=== PATIENT | female | born 1930 | race Caucasian/White ===

== ENCOUNTER → 2016-05-27 | Outpatient (CLI) | payer MEDICARE ==
[~2016-05-27] MED LIST: AMLO2.5T PO; AMLO5TAB2; AMLO5TAB4 PO; ASPI-875 PO; BISO1TAB8 PO; BISO5TAB24 PO; CLN.2T PO; CPR500T PO; GUAI5LIQ3 PO; HYDR-3812 PO; OXYB5TAB9 PO; PANT40TA2 PO; PRAV40TA PO; PRCD5U PO; PRV20T PO
--- OUTSIDE RECORDS SUMMARY | 2016-05-27 12:42 | XMS REPORT | Continuity of Care Document ---
Author Author [facility] Organization [facility] Address Unknown Phone Unavailable Care Team Providers Care Card Seller Name Role Phone PCP Unavailable Source Comments Some departments are not documenting in the electronic medical record. If you do not see the information that you expected, contact Release of Information in the Health Information Management department at [phone] for further assistance in locating additional records.[facility] Active Allergies and Adverse Reactions Not on File Current Medications Not on file Active Problems Not on file Social History Tobacco Use Types Packs/Day Years Used Date Never Assessed Plan of Care Health Maintenance Due Date Last Done Comments Physical (Comprehensive) 1937 Exam Pertussis Vaccine 1941 Tetanus Vaccine 1947 Breast Cancer Screening 1970 Shingles Vaccine 1990 Osteoporosis Screening 1995 Prevnar/Pneumovax (#1) 1995 Influenza Vaccine 01/09/2015 Results from Last 3 Months Not on file
--- NOTE | 2016-05-27 13:02 | Diagnostic Imaging Report ---
Indication: Dyspnea and cough for one week. Discussion: Two views of the chest were obtained, comparison 10/11/2013. Underlying COPD is stable. Borderline cardiomegaly is stable. No evidence of pneumonia, heart failure, pleural fluid, or pneumothorax. No acute osseous abnormality. Impression: 1. Borderline cardiomegaly without failure. Dictated by: Dictated on workstation # [id number]
== END ==
LOC: RAD 12:38
PROVIDERS: ATTEND Nurse Practitioner Family
DX: I51.7 Cardiomegaly (principal); R06.09 Other forms of dyspnea
CPT/HCPCS: 71020

== ENCOUNTER 2016-07-10 05:50 | Outpatient (CLI) | payer MEDICARE ==
[~2016-07-10] VITALS: Ht 165.1 cm; Wt 68.3 kg
[~2016-07-10 05:50] MED LIST changes: -AMLO5TAB4 PO; -PANT40TA2 PO
--- OUTSIDE RECORDS SUMMARY | 2016-07-10 05:52 | XMS REPORT | Continuity of Care Document ---
Author Author [facility] Organization [facility] Address Unknown Phone Unavailable Care Team Providers Care Process Coordinator Name Role Phone PCP Unavailable Source Comments Some departments are not documenting in the electronic medical record. If you do not see the information that you expected, contact Release of Information in the Health Information Management department at [phone] for further assistance in locating additional records.[facility] Active Allergies and Adverse Reactions [...]
[2016-07-10] MEDS ORDERED: AMLO5TAB4 PO (15:54)
== END 2016-07-10 15:58 ==
LOC: PREOP 05:50
PROVIDERS: ATTEND Surgery Pediatric Surgery
DX: Z01.818 Encounter for other preprocedural examination (principal); K62.5 Hemorrhage of anus and rectum; K21.9 Gastro-esophageal reflux disease without esophagitis

== ENCOUNTER 2016-07-16 10:26 | Day surgery (SDC) | payer MEDICARE ==
[~2016-07-16 10:26] MED LIST changes: +AMLO5TAB4 PO
--- OUTSIDE RECORDS SUMMARY | 2016-07-16 10:29 | XMS REPORT | Continuity of Care Document ---
Author Author [facility] Organization [facility] Address Unknown Phone Unavailable Care Team Providers Care Certification Officer Name Role Phone PCP Unavailable Source Comments Some departments are not documenting in the electronic medical record. If you do not see the information that you expected, contact Release of Information in the Health Information Management department at [phone] for further assistance in locating additional records.[facility] Active Allergies and Adverse Reactions Not [...]
--- OUTSIDE RECORDS SUMMARY | 2016-07-16 10:29 | XMS REPORT | Continuity of Care Document ---
Author Author [facility] Organization [facility] Address Unknown Phone Unavailable Care Team Providers Care Water Pump Servicer Name Role Phone PCP Unavailable Source Comments Some departments are not documenting in the electronic medical record. If you do not see the information that you expected, contact Release of Information in the Health Information Management department at [phone] for further assistance in locating additional records.[facility] Active Allergies and Adverse Reactions Not [...]
[2016-07-16 10:45] VITALS: BP 149/83
[2016-07-16] MEDS ORDERED: NALOXONE 0.4 MG/ML 1 ML (NARCAN) VIAL IVP PRN (10:45)
[2016-07-16] MEDS ORDERED: HURRICAINE EXT TUBE (BENZOCAINE) XX PRN (10:45)
[2016-07-16] MEDS ORDERED: NS IV 500 ML 500 ML IV ONE (10:45)
[2016-07-16] MEDS ORDERED: FLUMAZENIL (ROMAZICON) 0.1 MG/ML 5 ML VIAL INJ PRN (10:45)
[2016-07-16] MEDS ORDERED: NS IV 500 ML 500 ML ONE (10:53)
[2016-07-16] MEDS ORDERED: fentaNYL INJECTION 100 MCG/2 ML AMP ONE ×2 (11:45→11:46)
[2016-07-16] MEDS ORDERED: LIDOCAINE JELLY 2% (XYLOCAINE) 5 ML TUBE ONE (11:45)
[2016-07-16] MEDS ORDERED: MIDAZOLAM 2 MG/2 ML (VERSED) VIAL ONE ×3 (11:46)
[2016-07-16] MEDS ORDERED: HURRICAINE EXT TUBE (BENZOCAINE) ONE (11:46)
[2016-07-16] MEDS: fentaNYL INJECTION 100 MCG/2 ML AMP IVP PRN ×4 (11:55→12:27)
[2016-07-16] MEDS: MIDAZOLAM 2 MG/2 ML (VERSED) VIAL IVP PRN ×3 (11:58→12:25)
[2016-07-16 13:10] VITALS: BP 139/69
--- NOTE | 2016-07-16 13:11 | Progress Note-Pre Operative ---
Pre-Operative Progress Note H&P Reviewed The H&P was reviewed, patient examined and no changes noted. Date H&P Reviewed: Jul 16, 2016 Time H&P Reviewed: 11:00 Pre-Operative Diagnosis: rectal bleed, GERD YESI ROWELL MD Jul 16, 2016 1:11 pm
--- NOTE | 2016-07-16 13:11 | Conscious Sedation/ASA ---
Conscious Sedation Pre-Proced Time Reviewed: 11:00 ASA Class: 2 Airway Mallampati Classification: ([place] appropriate class) I. II. III, IV Lungs Heart ASA score ASA 1: a normal healthy patient ASA 2: a patient with a mild systemic disease (mid diabetes, controlled hypertension, obesity ASA 3: a patient with a severe systemic disease that limits activity (angina , COPD, prior Myocardial infarction) ASA 4: a patient with an incapacitating disease that is a constant threat to life (CHF, renal failure) ASA 5: a moribund patient not expected to survive 24 hrs. (ruptured aneurysm) ASA 6: a declared brain patient whose organs are being harvested. For emergent operations, add the letter E after the classification Grade 2 Sedation Plan: Analgesia, Amnesia, Plan communicated to team members, Discussed options with patient/fam, Discussed risks with patient/fam Note The patient is an appropriate candidate to undergo the planned procedure, sedation, and anesthesia. The patient immediately re-assessed prior to indication. YESI ROWELL MD Jul 16, 2016 1:11 pm
--- NOTE | 2016-07-16 13:14 | Progress Note-Post Operative ---
Post-Operative Progess Note Pre-Operative Diagnosis rectal bleed, GERD Post-Operative Diagnosis reflux esophagitis(class B), small HH(2cm), moderate gastritis. chronic stage 2-3 ext and int hemorrhoids, moderate-severe sigmoid diverticulosis. Post-Op Procedure Note Date of Procedure: Jul 16, 2016 Name of Procedure: EGD with bx. Colonoscopy. Anesthesia Type CS Estimated blood loss (mL): minimal Specimen(s) collected GE jxn, antrum YESI ROWELL MD Jul 16, 2016 1:14 pm
[2016-07-16] MEDS ORDERED: PANT40TA2 PO (13:15)
[2016-07-16] MEDS ORDERED: ONDANSETRON 4 MG/2 ML (SDV) Z0FRAN IV PRN (13:15)
[2016-07-16] MEDS ORDERED: ACETAMINOPHEN 325 MG TABLET/CAPLET (TYLENOL) PO PRN (13:15)
[2016-07-16] MEDS ORDERED: morphine INJ 10 MG/ML 1ML (SYR OR VIAL) IV PRN (13:15)
[2016-07-16] MEDS ORDERED: HYDROcodone/APAP 5 MG/325 MG (LORTAB) TAB PO PRN (13:15)
--- NOTE | 2016-07-16 13:16 | Discharge Inst-Surgical ---
D/C Lap Instructions-KIDO New, Converted, or Re-Newed RX: RX on Chart Follow Up PRN Activity as tolerated High Fiber Diet 25g or more per day Avoid Alcohol, Caffeine, Spicy [place] and Acid foods. Drink 64 fluid oz or more of fluids per day. Symptoms to Report: Fever over 101 degree F, Nausea/Vomiting If any problems/questions: Contact your physician or go to Emergency Room YESI ROWELL MD Jul 16, 2016 1:16 pm
[2016-07-16 13:40] VITALS: BP 138/67
[2016-07-16 14:05] VITALS: BP 138/67
--- NOTE | 2016-07-17 10:01 | OPERATIVE REPORT ---
PROCEDURE PHYSICIAN: YESI HERNÁNDEZ DATE OF PROCEDURE: 07/16/2016 ATTENDING PRIMARY CARE PHYSICIAN: Dr. Rosario. PREOPERATIVE DIAGNOSES: 1. Gastroesophageal reflux disease. 2. Abdominal pain. 3. Rectal bleeding. POSTOPERATIVE DIAGNOSES: 1. Reflux esophagitis, class B. 2. Small hiatal hernia 2 cm in size. 3. Moderate severity gastritis. 4. Chronic, stage II external and internal hemorrhoids. 5. Moderate to severe sigmoid diverticulosis. PROCEDURES: 1. EGD with biopsy. 2. Colonoscopy. SURGEON: Dr. Hernández. ANESTHESIA: Conscious sedation. ESTIMATED BLOOD LOSS: Minimal. FINDINGS: EGD: 1. Reflux esophagitis, class B. 2. Small hiatal hernia 2 cm in size. 3. Moderate severity gastritis. 4. Pylorus and duodenum appeared normal. COLONOSCOPY: 1. Chronic, stage II external and internal hemorrhoids, not actively edematous or inflamed and no bleeding. 2. There was a moderate to severe diverticulosis. 3. There was no mucosal inflammatory changes to indicate any active diverticulitis. 4. The remainder of the colon was normal. There were no signs of colitis or any active bleeding sources. DISPOSITION: The patient tolerated procedure well. BRIEF HISTORY: Ms. Odalys Almanza is an 86-year-old female with symptoms of rectal bleeding, as well as increased reflux and regurgitation. She reports in the past 2 months, she has been having episodes of red blood per rectum. She also reports that she has had pain in the right lower abdominal quadrant, crampy in nature. She does not report any fever or chills as well as no diarrhea, nor constipation. She also reports that she has had reflux and heartburn, however, this worsened in the past several months. She does not report any uriah episodes of nausea nor vomiting, as well as no hematemesis. PROCEDURE: EGD: The patient was brought to the endoscopy suite, laid in left lateral decubitus position. After adequate IV pain and sedative medications and conscious sedation anesthesia, the mouthpiece was applied. The endoscope mouth, visualizing the pharynx and hypopharyngeal region. Vocal cords, epiglottis and vallecula identified and appeared to be normal. The endoscope was then gently intubated into the esophageal opening and the esophagus insufflated. The endoscope was then advanced through the first, second, and 3rd portions esophagus at the level of the GE junction, a reflux esophagitis, class B identified. There were no ulcers or strictures identified in this region. Biopsy was taken with forceps with visualization of good hemostasis. The endoscope was then easily advanced into stomach and endoscope retroflexed visualizing a small hiatal hernia, approximately 2 cm in size. There was a moderate severity gastritis towards the stomach antrum. There were no active bleeding sources identified. A biopsy was taken with forceps with visualization of good hemostasis. The endoscope was advanced through the pylorus and first and second portions of duodenum which appeared normal. The endoscope was then slowly withdrawn while taking a second look and suctioning of residual air with no additional findings. The patient tolerated this portion the procedure well. For her reflux esophagitis, hiatal hernia, as well as gastritis, we will recommend the necessary lifestyle and diet accommodation including smaller, more frequent meals, avoidance of eating at night, as well as head elevation while laying supine. She also needs to avoid caffeinated beverages, spicy, greasy and acidic foods. We will also start her on Protonix 40 mg daily. COLONOSCOPY: Under the same conscious anesthesia, we then proceeded with the colonoscopy portion the procedure. A digital rectal examination revealed chronic, stage II external and internal hemorrhoids which were not actively edematous or inflamed and no bleeding. Normal sphincter tone was felt and there were no palpable masses. The endoscope was then intubated into the anus and the rectum gently insufflated. The endoscope was then advanced through the valves of [place]su the rectum with no polyps or any neoplasms identified, as well as no signs of proctitis. We then proceeded to the sigmoid colon where a moderate to severe sigmoid diverticulosis identified. There is no active mucosal inflammatory changes to indicate any active diverticulitis as well as no active bleeding. The endoscope was then advanced through the remainder of the descending, transverse, and ascending colon of the cecum. These segments were normal. There were no polyps or any neoplasms identified throughout the colon or rectum as well as no inflammatory changes, nor any active bleeding sources. The endoscope was then slowly withdrawn while taking a second look and suctioning residual air with no additional findings. The patient tolerated procedure well. We will recommend a high fiber diet with least 25 to 30 grams of fiber per day as well as at least 64 fluid ounces of water daily to promote soft stools on a daily basis. We feel that the bleeding as well as likely due to the internal hemorrhoidal source versus diverticular bleed. Job ID: [id number] Dictated Date: 07/16/2016 12:58:26 Crystal Report Developer Date: 07/17/2016 09:50:24 / salvatore
== END 2016-07-16 14:05 | disposition home or self-care (01) ==
LOC: ENDO 10:26
PROVIDERS: ATTEND Surgery Pediatric Surgery
DX: K21.0 Gastro-esophageal reflux disease with esophagitis (principal); K57.90 Diverticulosis of intestine, part unspecified, without perforation or abscess without bleeding; K44.9 Diaphragmatic hernia without obstruction or gangrene; K29.70 Gastritis, unspecified, without bleeding; K64.8 Other hemorrhoids
CPT/HCPCS: 88305

== ENCOUNTER 2016-11-05 09:14 | Emergency (ER) | payer MEDICARE ==
[~2016-11-05] VITALS: Ht 165.1 cm; Wt 68.0 kg
[~2016-11-05 09:14] MED LIST changes: +PANT40TA2 PO
--- OUTSIDE RECORDS SUMMARY | 2016-11-05 09:21 | XMS REPORT | Continuity of Care Document ---
Author Author [facility] Address Unknown Phone Unavailable Allergies Active Description Code Type Severity Reaction Onset Reported/Identified Relationship to Patient Clinical Status Yes No Known Drug Allergies [id number] Drug Allergy Unknown N/ A 07/16/2016 Medications Problems Date Dx Coded Attending Type Code Diagnosis Diagnosed By 07/25/2011 Ot 599.0 URIN TRACT INFECTION NOS 07/25/2011 Ot 780.60 FEVER, UNSPECIFIED 12/22/2011 Ot 272.4 HYPERLIPIDEMIA NEC/NOS 12/22/2011 Ot 401.9 HYPERTENSION NOS 12/22/2011 Ot 428.0 CONGESTIVE HEART FAILURE NOS 12/22/2011 Ot 428.31 ACUTE DIASTOLIC HRT FAILURE 12/22/2011 Ot 494.1 BRONCHIECTASIS W/ACUTE EXACERBATION 12/22/2011 Ot 577.0 ACUTE PANCREATITIS 02/25/2013 SAIMA MOODY MD Ot 298.9 PSYCHOSIS NOS 02/25/2013 SAIMA MOODY MD Ot 389.9 HEARING LOSS NOS 02/25/2013 SAIMA MOODY MD Ot 401.9 HYPERTENSION NOS 02/25/2013 SAIMA MOODY MD Ot 427.69 PREMATURE BEATS NEC 02/25/2013 SAIMA MOODY MD Ot 427.89 CARDIAC DYSRHYTHMIAS NEC 02/25/2013 SAIMA MOODY MD Ot 780.2 SYNCOPE AND COLLAPSE 02/25/2013 SAIMA MOODY MD Ot 780.4 DIZZINESS AND GIDDINESS 02/25/2013 SAIMA MOODY MD Ot 780.79 OTH MALAISE FATIGUE 02/25/2013 SAIMA MOODY MD Ot 780.8 GENERALIZED HYPERHIDROSIS 02/25/2013 SAIMA MOODY MD Ot 781.2 ABNORMALITY OF GAIT 02/25/2013 SAIMA MOODY MD Ot 782.62 FLUSHING 02/25/2013 SAIMA MOODY MD Ot 784.51 DYSARTHRIA 02/25/2013 SAIMA MOODY MD Ot 786.50 CHEST PAIN NOS 02/25/2013 SAIMA MOODY MD Ot 787.01 NAUSEA WITH VOMITING 02/25/2013 SAIMA MOODY MD Ot V17.49 FAMILY HISTORY OF OTHER CARDIOVASCULAR D 03/21/2013 SAIMA MOODY MD Ot 786.50 CHEST PAIN NOS 04/24/2013 SAIMA MOODY MD Ot 780.2 SYNCOPE AND COLLAPSE 09/29/2014 SAIMA MOODY MD Ot V76.12 11/06/2015 YADIRA JARRETT, HERMILA Watson Ot M66.0 RUPTURE OF POPLITEAL CYST 11/07/2015 YADIRA JARRETT, HERMILA Watson Ot M66.0 RUPTURE OF POPLITEAL CYST 12/17/2015 OBED DO, JORDAN F Ot M25.562 PAIN IN LEFT KNEE 12/20/2015 OBED DO, JORDAN F Ot M25.562 PAIN IN LEFT KNEE 01/04/2016 OBED DO, JORDAN F Ot M25.562 PAIN IN LEFT KNEE 01/10/2016 OBED DO, JORDAN F Ot M25.562 PAIN IN LEFT KNEE 05/27/2016 Ot V76.12 OTH SCREEN MAMMO-MALIGN NEOPLASM OF DIEGO 05/27/2016 SAIMA MOODY MD Ot 786.2 COUGH 05/27/2016 SAIMA MOODY MD Ot 786.9 RESP SYS/CHEST SYMP NEC 05/27/2016 SAIMA MOODY MD Ot 786.50 CHEST PAIN NOS 05/27/2016 CARLITA LUI MD Ot 397.0 TRICUSPID VALVE DISEASE 05/27/2016 CARLITA LUI MD Ot 401.0 MALIGNANT HYPERTENSION 05/27/2016 CARLITA LUI MD Ot 424.0 MITRAL VALVE DISORDER 05/27/2016 CARLITA LUI MD Ot 427.89 CARDIAC DYSRHYTHMIAS NEC 05/27/2016 CARLITA LUI MD Ot 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 05/27/2016 CARLITA LUI MD Ot 780.2 SYNCOPE AND COLLAPSE 05/27/2016 Ot 786.50 CHEST PAIN NOS 05/27/2016 SAIMA MOODY MD Ot V76.12 OTH SCREEN MAMMO-MALIGN NEOPLASM OF [place] 05/27/2016 Ot 780.2 SYNCOPE AND COLLAPSE 05/27/2016 SAIMA MOODY MD Ot 496 CHR AIRWAY OBSTRUCT NEC 05/27/2016 SAIMA MOODY MD Ot 786.2 COUGH 05/27/2016 SAIMA MOODY MD Ot V76.12 OTH SCREEN MAMMO-MALIGN NEOPLASM OF [place] 05/27/2016 JORDAN CLAY DO Ot M25.562 PAIN IN LEFT KNEE 05/28/2016 JUAN MANUEL BANDA ORNAMENTAL IRONWORKER Ot I51.7 CARDIOMEGALY 05/28/2016 JUAN MANUEL BANDA ORNAMENTAL IRONWORKER Ot R06.09 OTHER FORMS OF DYSPNEA 06/13/2016 JUAN MANUEL BANDA ORNAMENTAL IRONWORKER Ot I51.7 CARDIOMEGALY 06/13/2016 JUAN MANUEL BANDA ORNAMENTAL IRONWORKER Ot R06.09 OTHER FORMS OF DYSPNEA 06/25/2016 JUAN MANUEL BANDA ORNAMENTAL IRONWORKER Ot I51.7 CARDIOMEGALY 06/25/2016 JUAN MANUEL BANDA ORNAMENTAL IRONWORKER Ot R06.09 OTHER FORMS OF DYSPNEA 07/10/2016 Ot 786.50 CHEST PAIN NOS 07/10/2016 Ot 780.2 SYNCOPE AND COLLAPSE 07/11/2016 YESI ROWELL MD Ot K21.9 GASTRO-ESOPHAGEAL REFLUX DISEASE WITHOUT 07/11/2016 YESI ROWELL MD Ot K62.5 HEMORRHAGE OF ANUS AND RECTUM 07/11/2016 YESI ROWELL MD Ot Z01.818 ENCOUNTER FOR OTHER PREPROCEDURAL EXAMIN 07/16/2016 YESI ROWELL MD Ot K21.9 GASTRO-ESOPHAGEAL REFLUX DISEASE WITHOUT 07/16/2016 YESI ROWELL MD Ot K62.5 HEMORRHAGE OF ANUS AND RECTUM 07/16/2016 YESI ROWELL MD Ot Z01.818 ENCOUNTER FOR OTHER PREPROCEDURAL EXAMIN 07/16/2016 Ot 786.50 CHEST PAIN NOS 07/16/2016 Ot 780.2 SYNCOPE AND COLLAPSE 07/16/2016 YESI ROWELL MD Ot K21.0 GASTRO-ESOPHAGEAL REFLUX DISEASE WITH ES 07/16/2016 YESI ROWELL MD Ot K29.70 GASTRITIS, UNSPECIFIED, WITHOUT BLEEDING 07/16/2016 YESI ROWELL MD Ot K44.9 DIAPHRAGMATIC HERNIA WITHOUT OBSTRUCTION 07/16/2016 YESI ROWELL MD Ot K57.90 DVRTCLOS OF INTEST, PART UNSP, W/O PERF 07/16/2016 SORIN JARRETT, YESI Ot K64.8 OTHER HEMORRHOIDS Procedures Results Encounters ACCT No. Visit Date/Time Discharge Status Pt. Type Provider Facility Loc./Unit Complaint [id number] 05/06/2012 09:57:00 05/06/2012 23: 59:59 CLS Outpatient [facility], [facility]
[2016-11-05 09:59] LABS: BILIRUBIN,URINE NEGATIVE (NEGATIVE); KETONES,URINE NEGATIVE (NEGATIVE); LEUKOCYTE ESTERASE ,URINE 3+ (NEGATIVE); NITRITE,URINE POSITIVE (NEGATIVE); PH,URINE 8 (5-9); PROTEIN,URINE 3+ (NEGATIVE); UROBILINOGEN,URINE 1 MG/DL (NORMAL)
[2016-11-05] MEDS ORDERED: NS IV 500 ML 500 ML IV ONE (10:00)
[2016-11-05] MEDS ORDERED: ACETAMINOPHEN 500 MG TAB (TYLENOL) PO PRN (10:00)
--- NOTE | 2016-11-05 10:08 | ED General ---
General Chief Complaint: -Female Stated Complaint: POSSIBLE UTI//SHOULDER PAIN Nursing Triage Note: PT CO OF UTI SX, PAIN, BURNING, FREQUENCY AND LOW BACK PAIN. PT CO OF R SHOULDER PAIN DENINES INJURY Nursing Sepsis Screen: No Definite Risk Source of Information: Patient Exam Limitations: No Limitations History of Present Illness Time Seen by Provider: 09:55 Initial Comments Here with report of urinary frequency over the last 2 nights as well as fever and chills. States that she has decreased appetite and is overall not feeling well. Complains of body aches and specifically pain to the right shoulder joint. Denies any injury. Timing/Duration: 2-3 Days Severity: Moderate Associated Systoms: No Chest Pain, No Cough, Fever/Chills, Loss of Appetite, No Nausea/Vomiting, No Rash, No Shortness of Air, Weakness Allergies and Home Medications Allergies Coded Allergies: No Known Drug Allergies (Verified , 07/16/16) Home Medications Amlodipine Besylate 5 Mg Tablet, 5 MG PO DAILY, (Reported) Aspirin 81 Mg Tablet.dr, 81 MG PO DAILY, (Reported) Pantoprazole Sodium 40 Mg Tablet.dr, 40 MG PO DAILY, #90 Prescribed by: YESI ROWELL on 07/16/16 1315 Constitutional: see HPI EENTM: no symptoms reported, No nose congestion, No throat pain Respiratory: No cough, No short of breath Cardiovascular: No chest pain, No edema, No palpitations Gastrointestinal: see HPI, No abdominal pain, loss of appetite, No nausea, No vomiting Genitourinary: no symptoms reported Musculoskeletal: back pain, muscle pain All Other Systems Reviewed Negative Unless Noted: Yes Past Rjtsxhb-Tjopbm-Jfwily Hx Patient Social History Alcohol Use: Denies Use Recreational Drug Use: No Smoking Status: Never a Smoker Recent Foreign Travel: No Contact w/Someone Who Travel: No Recent Infectious Disease Expo: No Recent Hopitalizations: No Immunizations Up To Date Tetanus Booster (TDap): Unknown Date of Pneumonia Vaccine: Feb 08, 2011 Date of Influenza Vaccine: Feb 16, 2017 Seasonal Allergies Seasonal Allergies: No Surgeries HX Surgeries: Yes (CYST REMOVED FROM KNEE, CATARACTS) Surgeries: Gallbladder, Hysterectomy Respiratory Hx Respiratory Disorders: No Cardiovascular Hx Cardiac Disorders: Yes Cardiac Disorders: Hypertension Neurological Hx Neurological Disorders: No Reproductive System Hx Reproductive Disorders: No Sexually Transmitted Disease: No HIV/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 Genitourinary Hx Genitourinary Disorders: No Gastrointestinal Hx Gastrointestinal Disorders: No (RECTAL BLEEDING) Gastrointestinal Disorders: Gastroesophageal Reflux, Diverticulosis, Polyps Musculoskeletal Hx Musculoskeletal Disorders: No Endocrine Hx Endocrine Disorders: No HEENT HX ENT Disorders: Yes (WEARS GLASSES, HEARING AIDES) Loss of Vision: Bilateral Hearing Impairment: Hard of Hearing Cancer Hx Cancer: No Psychosocial Hx Psychiatric Problems: No Integumentary HX Skin/Integumentary Disorder: No Blood Transfusions Hx Blood Disorders: No Adverse Reaction to a Blood Tr: No (N/A) Reviewed Nursing Assessment Reviewed/Agree w Nursing PMH: Yes Family Medical History Significant Family History: No Pertinent Family Hx Physical Exam-Suspected Sepsis Physical Exam Vital Signs Vital Sign - Last 12Hours 11/05/16 09:34 Temp 97.3 Pulse 94 Resp 18 B/P (MAP) 134/69 Pulse Ox 94 Capillary Refill : Less Than 3 Seconds Blood Pressure Mean: 90 General Appearance: No Apparent Distress, WD/WN HEENT: PERRL/EOMI, Pharynx Normal Neck: Non Tender, Supple Respiratory: Lungs Clear, Normal Breath Sounds Cardiovascular: Regular Rate, Rhythm, No Murmur Gastrointestinal: Non Tender, Soft Back: Normal Inspection, No CVA Tenderness, No Vertebral Tenderness, Other ( low back pain and bilateral paraspinous. Mild pain within the shoulder joint retains range of motion.) Neurologic/Psychiatric: Alert, Oriented x3 Skin: normal color, warm/dry Focused Exam Lactic Acid Level Laboratory Tests Test 11/05/16 10:00 Lactic Acid Level 0.76 MMOL/L (0.50-2.00) Progress/Results/Core Measures Suspected Sepsis Recent Fever Within 48 Hours: No Infection Criteria Present: None New/Unexplained Altered Menta: No Sepsis Screen: No Definite Risk Sepsis Diagnosis: SIRS Temperature:97.3 Pulse: 94 Respiratory Rate: 18 Laboratory Tests 11/05/16 10:00: White Blood Count 13.3H Blood Pressure 134 /69 Mean: 90 Laboratory Tests 11/05/16 10:00: Creatinine 0.81, INR Comment 1.1, Platelet Count 200, Total Bilirubin 0.9 Results/Orders Lab Results Laboratory Tests Test 11/05/16 09:25 11/05/16 10:00 Range/Units Urine Color YELLOW Urine Clarity VERY CLOUDY H Urine pH 8 5-9 Urine Specific [place] 1.015 L 1.016-1.022 Urine Protein 3+ H NEGATIVE Urine Glucose (UA) NEGATIVE NEGATIVE Urine Ketones NEGATIVE NEGATIVE Urine Nitrite POSITIVE H NEGATIVE Urine Bilirubin NEGATIVE NEGATIVE Urine Urobilinogen 1 NORMAL MG/DL Urine Leukocyte Esterase 3+ H NEGATIVE Urine RBC (Auto) 4+ H NEGATIVE Urine RBC 10-25 H /HPF Urine WBC >100 H /HPF Urine Squamous Epithelial Cells 10-25 H /HPF Urine Crystals NONE /LPF Urine Bacteria LARGE H /HPF Urine Casts NONE /LPF Urine Mucus NEGATIVE /LPF Urine Culture Indicated YES White Blood Count 13.3 H 4.3-11.0 10^3/uL Red Blood Count 4.59 4.35-5.85 10^6/uL Hemoglobin 13.2 11.5-16.0 G/DL Hematocrit 40 35-52 % Mean Corpuscular Volume 87 80-99 FL Mean Corpuscular Hemoglobin 29 25-34 PG Mean Corpuscular Hemoglobin Concent 33 32-36 G/DL Red Cell Distribution Width 14.4 10.0-14.5 % Platelet Count 200 130-400 10^3/uL Mean Platelet Volume 9.3 7.4-10.4 FL Neutrophils (%) (Auto) 74 42-75 % Lymphocytes (%) (Auto) 11 L 12-44 % Monocytes (%) (Auto) 14 H 0-12 % Eosinophils (%) (Auto) 1 0-10 % Basophils (%) (Auto) 0 0-10 % Neutrophils # (Auto) 9.9 H 1.8-7.8 X 10^3 Lymphocytes # (Auto) 1.4 1.0-4.0 X 10^3 Monocytes # (Auto) 1.8 H 0.0-1.0 X 10^3 Eosinophils # (Auto) 0.1 0.0-0.3 10^3/uL Basophils # (Auto) 0.1 0.0-0.1 10^3/uL Prothrombin Time 13.4 12.2-14.7 SEC INR Comment 1.1 0.8-1.4 Activated Partial Thromboplast Time 31 24-35 SEC Sodium Level 139 135-145 MMOL/L Potassium Level 3.9 3.6-5.0 MMOL/L Chloride Level 105 98-107 MMOL/L Carbon Dioxide Level 26 21-32 MMOL/L Anion Gap 8 5-14 MMOL/L Blood Urea Nitrogen 14 7-18 MG/DL Creatinine 0.81 0.60-1.30 MG/DL Estimat Glomerular Filtration Rate > 60 BUN/Creatinine Ratio 17 Glucose Level 123 H 70-105 MG/DL Lactic Acid Level 0.76 0.50-2.00 MMOL/L Calcium Level 9.2 8.5-10.1 MG/DL Total Bilirubin 0.9 0.1-1.0 MG/DL Aspartate Amino Transf (AST/SGOT) 21 5-34 U/L Alanine Aminotransferase (ALT/SGPT) 23 0-55 U/L Alkaline Phosphatase 69 40-136 U/L Total Protein 7.2 6.4-8.2 GM/DL Albumin 3.9 3.2-4.5 GM/DL My Orders Orders - BIANCA QUAHC MD Ua Culture If Indicated (11/05/16 09:40) Cbc With Automated Diff (11/05/16 10:00) Comprehensive Metabolic Panel (11/05/16 10:00) Lactic Acid Analyzer (11/05/16 10:00) Blood Culture (11/05/16 10:00) Sputum Culture (11/05/16 10:00) Protime With Inr (11/05/16 10:00) Partial Thromboplastin Time (11/05/16 10:00) Chest 1 View, Ap/Pa Only (11/05/16 10:00) O2 (11/05/16 10:00) Acetaminophen Tablet (Tylenol Tablet) (11/05/16 10:00) Saline Lock/Iv-Start (11/05/16 10:00) Vital Signs Adult Sepsis Patie Q1HR (11/05/16 10:00) Remove Rings In Anticipation O (11/05/16 10:00) Ns Iv 500 Ml (Sodium Chloride 0.9%) (11/05/16 10:00) Urine Culture (11/05/16 09:25) Rocephin 1g Iv (11/05/16 11:30) Medications Given in ED Current Medications Medications Dose Ordered Sig/Ronnie Route Start Time Stop Time Status Last Admin Dose Admin Acetaminophen 1,000 mg ONCE PRN PO 11/05/16 10:00 11/05/16 10:15 DC 11/05/16 10:14 1,000 MG Sodium Chloride 500 ml @ 0 mls/hr Q0M ONCE IV 11/05/16 10:00 11/05/16 10:02 DC 11/05/16 10:14 500 MLS/HR Vital Signs/I&O Vital Sign - Last 12Hours 11/05/16 09:34 Temp 97.3 Pulse 94 Resp 18 B/P (MAP) 134/69 Pulse Ox 94 Capillary Refill : Less Than 3 Seconds Blood Pressure Mean: 90 Progress Note : Progress Note Seen and evaluated. UA ordered. IV, labs and blood culture ordered after patient became febrile in the ER. Lactic acid ordered with blood culture. Normal saline 500 mL bolus. Tylenol 1 g by mouth ordered. Monitor patient. 1120: UTI noted. Mild elevation in white count but overall I think this can be treated as outpatient. We will give 1 g Rocephin IV here due to complexity of symptoms and concerns related to age. Patient and family agree and her appreciative. She does feel better after fluids and Tylenol. Discharged home with return precautions. Patient verbalize understanding instructions and agreement with plan. Departure Impression Impression: Primary Impression: Urinary tract infection Qualified Codes: N30.00 - Acute cystitis without hematuria Disposition: HOME, SELF-CARE Condition: Stable Departure-Patient Inst. Decision time for Depature: 11:26 Referrals: ALISON FERRELL MD (PCP/Family) Primary Care Physician Patient Instructions: Urinary Tract Infection, Adult (DC) Add. Discharge Instructions: All discharge instructions reviewed with patient and/or family. Voiced understanding. Take medications as directed. Drink plenty of fluids. Follow-up with your DrSusan in a few days for recheck. Return for worse pain, fever, vomiting, weakness, breathing problems or other concerns as needed. Scripts Cephalexin (Cephalexin) 500 Mg Tablet 500 MG PO BID, #14 TAB 0 Refills Prov: BIANCA QUACH MD 11/05/16 BIANCA QUACH MD Nov 05, 2016 10:08
[2016-11-05 10:14] LABS: BASOPHILS # (AUTO) 0.1 10^3/uL (0.0-0.1); BASOPHILS % (AUTO) 0 % (0-10); EOSINOPHILS # (AUTO) 0.1 10^3/uL (0.0-0.3); EOSINOPHILS % (AUTO) 1 % (0-10); LYMPHOCYTES # (AUTO) 1.4 X 10^3 (1.0-4.0); LYMPHOCYTES % (AUTO) 11 % (12-44); MEAN CORPUSCULAR HEMOGLOBIN 29 PG (25-34); MEAN CORPUSCULAR HGB CONC 33 G/DL (32-36); MEAN CORPUSCULAR VOLUME 87 FL (80-99); MEAN PLATELET VOLUME 9.3 FL (7.4-10.4); MONOCYTES # (AUTO) 1.8 X 10^3 (0.0-1.0); MONOCYTES % (AUTO) 14 % (0-12); NEUTROPHILS # (AUTO) 9.9 X 10^3 (1.8-7.8); NEUTROPHILS % (AUTO) 74 % (42-75); PLATELET COUNT 200 10^3/uL (130-400); RED BLOOD COUNT 4.59 10^6/uL (4.35-5.85); RED CELL DISTRIBUTION WIDTH 14.4 % (10.0-14.5); WHITE BLOOD COUNT 13.3 10^3/uL (4.3-11.0)
[2016-11-05 10:15] LABS: WBC,URINE >100 /HPF
[2016-11-05 10:23] LABS: INR 1.1 (0.8-1.4); PROTHROMBIN TIME PATIENT 13.4 SEC (12.2-14.7)
[2016-11-05 10:31] LABS: ALANINE AMINOTRANSFERASE 23 U/L (0-55); ALBUMIN 3.9 GM/DL (3.2-4.5); ANION GAP 8 MMOL/L (5-14); ASPARTATE AMINO TRANSFERASE 21 U/L (5-34); BILIRUBIN,TOTAL 0.9 MG/DL (0.1-1.0); BLOOD UREA NITROGEN 14 MG/DL (7-18); BUN/CREATININE RATIO 17; CALCIUM 9.2 MG/DL (8.5-10.1); CARBON DIOXIDE 26 MMOL/L (21-32); CHLORIDE 105 MMOL/L (98-107); CREATININE SERUM 0.81 MG/DL (0.60-1.30); GFR ESTIMATED > 60; GLUCOSE 123 MG/DL (70-105); POTASSIUM 3.9 MMOL/L (3.6-5.0); SODIUM 139 MMOL/L (135-145); TOTAL PROTEIN 7.2 GM/DL (6.4-8.2)
--- NOTE | 2016-11-05 10:47 | Diagnostic Imaging Report ---
TECHNIQUE: Portable upright radiograph of the chest. INDICATION: Chest pain. FINDINGS: The lungs are hyperinflated with mild chronic appearing thickening of the interstitial markings, suggestive of COPD. The heart size is moderately enlarged. No significant congestion or edema is evident. No significant effusion. No pneumothorax. IMPRESSION: COPD. Cardiomegaly. Dictated by: Dictated on workstation # [id number]
[2016-11-05] MEDS ORDERED: NS (IVPB) 50 ML ONE (11:20)
[2016-11-05] MEDS ORDERED: cefTRIAXone 1 GM (ROCEPHIN) VIAL ONE (11:20)
[2016-11-05] MEDS ORDERED: CEPH500T PO (11:28)
[2016-11-05] MEDS ORDERED: cefTRIAXone INJECTION 1,000 MG in NS (IVPB) 50 ML IV ONE (11:30)
[2016-11-05 11:52] VITALS: BP 138/65
== END 2016-11-05 11:48 | disposition home or self-care (01) ==
LOC: EDUNIT# 09:14 → ER 09:17
DX: M25.511 Pain in right shoulder (principal); N39.0 Urinary tract infection, site not specified; F17.210 Nicotine dependence, cigarettes, uncomplicated
CPT/HCPCS: 36415; 71010; 80053; 81000; 83605; 85025; 85610; 85730; 87040; 87088; 87186; 96361; 96374; 99282

== ENCOUNTER 2016-11-21 17:41 | Inpatient (IN) | payer MEDICARE ==
[~2016-11-21] VITALS: Ht 165.1 cm; Wt 68.0 kg
[~2016-11-21 17:41] MED LIST changes: +CEPH500T PO
--- OUTSIDE RECORDS SUMMARY | 2016-11-21 17:48 | XMS REPORT | Continuity of Care Document ---
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 Ot I51.7 CARDIOMEGALY 06/13/2016 JUAN MANUEL 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 HAT BLOCKER Ot R06.09 OTHER FORMS OF DYSPNEA 06/25/2016 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 Ot I51.7 CARDIOMEGALY 06/25/2016 JUAN MANUEL BANDA HAT BLOCKER Ot R06.09 OTHER FORMS OF DYSPNEA 07/10/2016 [...] DIAPHRAGMATIC HERNIA WITHOUT OBSTRUCTION 07/16/2016 YESI ROWELL MD, Ot K57.90 DVRTCLOS OF INTEST, PART UNSP, W/O PERF 07/16/2016 YESI ROWELL MD Ot K64.8 OTHER HEMORRHOIDS 11/08/2016 BIANCA QUACH MD, Ot F17.210 NICOTINE DEPENDENCE, CIGARETTES, UNCOMPL 11/08/2016 BIANCA QUACH MD, Ot M25.511 PAIN IN RIGHT SHOULDER 11/08/2016 BIANCA QUACH MD, Ot N39.0 URINARY TRACT INFECTION, SITE NOT SPECIF 11/09/2016 BIANCA QUACH MD Ot I10 ESSENTIAL (PRIMARY) HYPERTENSION 11/09/2016 BIANCA QUACH MD, Ot M25.511 PAIN IN RIGHT SHOULDER 11/09/2016 BIANCA QUACH MD, Ot N39.0 URINARY TRACT INFECTION, SITE NOT SPECIF 11/09/2016 BIANCA QUACH MD, Ot R50.9 FEVER, UNSPECIFIED 11/09/2016 BIANCA QUACH MD Ot 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 11/09/2016 BIANCA QUACH MD Ot Z90.49 ACQUIRED ABSENCE OF OTHER SPECIFIED PART 11/09/2016 BIANCA QUACH MD Ot Z90.710 ACQUIRED ABSENCE OF BOTH CERVIX AND UTER Procedures Results Test Result Range Complete urinalysis with reflex to culture - 11/05/16 09:25 Urine color determination YELLOW NRG Urine clarity determination VERY CLOUDY NRG Urine pH measurement by test strip 8 5- 9 Specific gravity of urine by test strip 1.015 1.016-1.022 Urine protein assay by test strip, semi-quantitative 3+ NEGATIVE Urine glucose detection by automated test strip NEGATIVE NEGATIVE Erythrocytes detection in urine sediment by light microscopy 4+ NEGATIVE Urine ketones detection by automated test strip NEGATIVE NEGATIVE Urine nitrite detection by test strip POSITIVE NEGATIVE Urine total bilirubin detection by test strip NEGATIVE NEGATIVE Urine urobilinogen measurement by automated test strip (mass/volume) 1 mg/dL NORMAL Urine leukocyte esterase detection by dipstick 3+ NEGATIVE Automated urine sediment erythrocyte count by microscopy (number/high power field) [HPF] NRG Automated urine sediment leukocyte count by microscopy (number/high power field ) > [HPF] NRG Bacteria detection in urine sediment by light microscopy LARGE NRG Squamous epithelial cells detection in urine sediment by light microscopy 10-25 NRG Crystals detection in urine sediment by light microscopy NONE NRG Casts detection in urine sediment by light microscopy NONE NRG Mucus detection in urine sediment by light microscopy NEGATIVE NRG Complete urinalysis with reflex to culture YES NRG Bacterial urine culture - 11/05/16 09:25 Bacterial urine culture [id number] NRG COLONY COUNT >100,000/ML NRG FTX;REPORTABLE SENSITIVITY REPORTED AT 07, 11-07-16 NRG URINE CULTURE RESULTS PLUS NRG Bacterial susceptibility panel - 11/05/16 09:25 Gentamicin susceptibility test by minimum inhibitory concentration <= NRG Trimethoprim/sulfamethoxazole susceptibility test by minimum inhibitoryconcentration >= NRG Ampicillin susceptibility test by minimum inhibitory concentration >= NRG Tobramycin susceptibility test by minimum inhibitory concentration <= NRG Cefazolin susceptibility test by minimum inhibitory concentration <= NRG Ceftriaxone susceptibility test by minimum inhibitory concentration <= NRG Ampicillin/sulbactam susceptibility test by minimum inhibitory concentration >= NRG Piperacillin/tazobactam susceptibility test by minimum inhibitory concentration 64 NRG Ciprofloxacin susceptibility test by minimum inhibitory concentration <= NRG Meropenem susceptibility test by minimum inhibitory concentration <= NRG Nitrofurantoin susceptibility test by minimum inhibitory concentration <= NRG Aztreonam susceptibility test by minimum inhibitory concentration <= NRG Extended spectrum beta lactamase (ESBL) producing bacteria susceptibility test by minimum inhibitory concentration - NRG Complete blood count (CBC) with automated white blood cell (WBC) differential - 11/05/16 10:00 Blood leukocytes automated count (number/volume) 13.3 10*3/ uL 4.3-11.0 Blood erythrocytes automated count (number/volume) 4.59 10*6 /uL 4.35-5.85 Venous blood hemoglobin measurement (mass/volume) 13.2 g/dL 11.5-16.0 Blood hematocrit (volume fraction) 40 % 35-52 Automated erythrocyte mean corpuscular volume 87 [foz_us] 80-99 Automated erythrocyte mean corpuscular hemoglobin (mass per erythrocyte) 29 pg 25-34 Automated erythrocyte mean corpuscular hemoglobin concentration measurement ( mass/volume) 33 g/dL 32-36 Automated erythrocyte distribution width ratio 14.4 % 10.0-14.5 Automated blood platelet count (count/volume) 200 10*3/uL 130-400 Automated blood platelet mean volume measurement 9.3 [foz_us ] 7.4-10.4 Automated blood neutrophils/100 leukocytes 74 % 42-75 Automated blood lymphocytes/100 leukocytes 11 % 12-44 Blood monocytes/100 leukocytes 14 % 0-12 Automated blood eosinophils/100 leukocytes 1 % 0-10 Automated blood basophils/100 leukocytes 0 % 0-10 Blood neutrophils automated count (number/volume) 9.9 10*3 1.8-7.8 Blood lymphocytes automated count (number/volume) 1.4 10*3 1.0-4.0 Blood monocytes automated count (number/volume) 1.8 10*3 0.0-1.0 Automated eosinophil count 0.1 10*3/uL 0.0-0.3 Automated blood basophil count (count/volume) 0.1 10*3/uL 0.0-0.1 PT panel in platelet poor plasma by coagulation assay - 11/05/16 10:00 Prothrombin time (PT) in platelet poor plasma by coagulation assay 13.4 s 12.2-14.7 INR in platelet poor plasma or blood by coagulation assay 1.1 0.8-1.4 Activated partial thromboplastin time (aPTT) in platelet poor plasma bycoagulation assay - 11/05/16 10:00 Activated partial thromboplastin time (aPTT) in platelet poor plasma bycoagulation assay 31 s 24-35 Blood lactic acid measurement (moles/volume) - 11/05/16 10:00 Blood lactic acid measurement (moles/volume) 0.76 mmol/L 0.50-2.00 Comprehensive metabolic panel - 11/05/16 10:00 Serum or plasma sodium measurement (moles/volume) 139 mmol/ L 135-145 Serum or plasma potassium measurement (moles/volume) 3.9 mmol/L 3.6-5.0 Serum or plasma chloride measurement (moles/volume) 105 mmol /L 98-107 Carbon dioxide 26 mmol/L 21-32 Serum or plasma anion gap determination (moles/volume) 8 mmol/L 5-14 Serum or plasma urea nitrogen measurement (mass/volume) 14 mg/dL 7-18 Serum or plasma creatinine measurement (mass/volume) 0.81 mg /dL 0.60-1.30 Serum or plasma urea nitrogen/creatinine mass ratio 17 NRG Serum or plasma creatinine measurement with calculation of estimated glomerular filtration rate > NRG Serum or plasma glucose measurement (mass/volume) 123 mg/dL 70-105 Serum or plasma calcium measurement (mass/volume) 9.2 mg/dL 8.5-10.1 Serum or plasma total bilirubin measurement (mass/volume) 0.9 mg/dL 0.1-1.0 Serum or plasma alkaline phosphatase measurement (enzymatic activity/volume) 69 U/L 40-136 Serum or plasma aspartate aminotransferase measurement (enzymatic activity/ volume) 21 U/L 5-34 Serum or plasma alanine aminotransferase measurement (enzymatic activity/volume ) 23 U/L 0-55 Serum or plasma protein measurement (mass/volume) 7.2 g/dL 6.4-8.2 Serum or plasma albumin measurement (mass/volume) 3.9 g/dL 3.2-4.5 Bacterial blood culture - 11/05/16 10:00 FREE TEXT EXTERNAL SENSITIVITY REPORTED 11/06 15:55 NRG QUANTITY OF GROWTH . NRG Bacterial blood culture SEE [facility] Bacterial susceptibility panel - 11/05/16 10:00 Gentamicin susceptibility test by minimum inhibitory concentration <= NRG Trimethoprim/sulfamethoxazole susceptibility test by minimum inhibitoryconcentration >= NRG Ampicillin susceptibility test by minimum inhibitory concentration >= NRG Tobramycin susceptibility test by minimum inhibitory concentration <= NRG Cefazolin susceptibility test by minimum inhibitory concentration <= NRG Ceftriaxone susceptibility test by minimum inhibitory concentration <= NRG Ampicillin/sulbactam susceptibility test by minimum inhibitory concentration >= NRG Piperacillin/tazobactam susceptibility test by minimum inhibitory concentration 16 NRG Ciprofloxacin susceptibility test by minimum inhibitory concentration <= NRG Meropenem susceptibility test by minimum inhibitory concentration <= NRG Aztreonam susceptibility test by minimum inhibitory concentration <= NRG Extended spectrum beta lactamase (ESBL) producing bacteria susceptibility test by minimum inhibitory concentration - NR Bacterial blood culture - 11/05/16 10:22 Bacterial blood culture NG NRG Encounters ACCT No. Visit Date/Time Discharge Status Pt. Type Provider Facility Loc./Unit Complaint [id number] 05/06/2012 09:57:00 05/06/2012 23: 59:59 CLS Outpatient [facility], [facility]
--- NOTE | 2016-11-21 18:10 | ED GU-Female ---
General Chief Complaint: -Female Stated Complaint: CHILLS,FREQUENT URINATION,NAUSEA,LOWER BACK PAIN Nursing Triage Note: ARRIVED VIA AMB TO ROOM 09. STATES SHE WAS HERE 2 WEEKS AGO WITH A UTI. SHE GOT BETTER BUT NEVER 100%. TODAY SHE IS HAVING BACK PAIN AND LOW GRADE FEVER. TOOK TYLENOL 500MG AT 1700. Nursing Sepsis Screen: No Definite Risk Source: patient, family (daughters x2) Exam Limitations: no limitations History of Present Illness Time seen by provider: 18:10 Initial Comments 86-year-old female patient presents to the emergency department with complaints of low-grade fever and back pain. Patient was treated in the emergency department 2 weeks ago for urinary tract infection with Keflex. States she never was 100 percent better. Reports poor appetite, fatigue, and occasionally short of breath. Patient does complain of lower abdominal discomfort radiating around both flanks into the back. Timing/Duration: this morning, getting worse Severity/Quality: aching Location: suprapubic Radiation: back, right flank, left flank Activities at Onset: none Prior Genitourinary Problems: similar symptoms Modifying Factors: Worsens With Movement, Worsens With Palpation Allergies and Home Medications Allergies Coded Allergies: No Known Drug Allergies (Verified , 07/16/16) Home Medications Amlodipine Besylate 5 Mg Tablet, 5 MG PO DAILY, (Reported) Aspirin 81 Mg Tablet.dr, 81 MG PO DAILY, (Reported) Cephalexin 500 Mg Tablet, 500 MG PO BID, #14 Ref 0 Prescribed by: BIANCA QUACH on 11/05/16 1128 Pantoprazole Sodium 40 Mg Tablet.dr, 40 MG PO DAILY, #90 Prescribed by: YESI ROWELL on 07/16/16 1315 Constitutional: see HPI, chills, fever, malaise, other (fatigue) EENTM: no symptoms reported Respiratory: No cough, No dyspnea on exertion, No orthopnea, No phlegm, short of breath, No stridor, No wheezing Cardiovascular: No chest pain, No palpitations Gastrointestinal: see HPI, abdominal pain, No constipation, No diarrhea, loss of appetite, No nausea, No vomiting Genitourinary: see HPI, denies burning, denies discharge, denies dysuria, denies frequency, flank pain, denies hematuria Musculoskeletal: see HPI, back pain Skin: no symptoms reported Psychiatric/Neurological: No Symptoms Reported All Other Systemes Reviewed Negative Unless Noted: Yes (Negative excepted noted.) Past Tnugngd-Kjzbkk-Jnhwit Hx Patient Social History Alcohol Use: Denies Use Recreational Drug Use: No Smoking Status: Never a Smoker Recent Foreign Travel: No Contact w/Someone Who Travel: No Recent Infectious Disease Expo: No Recent Hopitalizations: No Immunizations Up To Date Tetanus Booster (TDap): Unknown Date of Pneumonia Vaccine: Feb 08, 2011 Date of Influenza Vaccine: Feb 16, 2017 Seasonal Allergies Seasonal Allergies: No Surgeries HX Surgeries: Yes (CYST REMOVED FROM KNEE, CATARACTS) Surgeries: Gallbladder, Hysterectomy Respiratory Hx Respiratory Disorders: No Cardiovascular Hx Cardiac Disorders: Yes Cardiac Disorders: Hypertension Neurological Hx Neurological Disorders: No Reproductive System Hx Reproductive Disorders: No Sexually Transmitted Disease: No HIV/AIDS: 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 Genitourinary Hx Genitourinary Disorders: No Gastrointestinal Hx Gastrointestinal Disorders: No (RECTAL BLEEDING) Gastrointestinal Disorders: Gastroesophageal Reflux, Diverticulosis, Polyps Musculoskeletal Hx Musculoskeletal Disorders: No Endocrine Hx Endocrine Disorders: No HEENT HX ENT Disorders: Yes (WEARS GLASSES, HEARING AIDES) Loss of Vision: Bilateral Hearing Impairment: Hard of Hearing Cancer Hx Cancer: No Psychosocial Hx Psychiatric Problems: No Integumentary HX Skin/Integumentary Disorder: No Blood Transfusions Hx Blood Disorders: No Adverse Reaction to a Blood Tr: No (N/A) Reviewed Nursing Assessment Reviewed/Agree w Nursing PMH: Yes Family Medical History Significant Family History: No Pertinent Family Hx Physical Exam Vital Signs Vital Sign - Last 12Hours 11/21/16 11/21/16 17:51 21:10 Temp 99.1 Pulse 87 Resp 16 B/P (MAP) 183/69 Pulse Ox 97 O2 Delivery Room Air Capillary Refill : Less Than 3 Seconds General Appearance: WD/WN, no apparent distress HEENT: PERRL/EOMI, pharynx normal Neck: supple, normal inspection Cardiovascular: normal peripheral pulses, regular rate, rhythm, no edema, no murmur Respiratory: lungs clear, normal breath sounds, no respiratory distress, no accessory muscle use Gastrointestinal: normal bowel sounds, non tender, soft, no organomegaly, No distended Back: normal inspection, CVA tenderness (R), CVA tenderness (L) Extremities: no pedal edema, normal capillary refill Neurologic/Psychiatric: alert, normal mood/affect, oriented x 3 Skin: normal color, warm/dry Focused Exam Lactic Acid Level Laboratory Tests Test 11/21/16 18:40 Lactic Acid Level 1.09 MMOL/L (0.50-2.00) Progress/Results/Core Measures Results/Orders Lab Results Laboratory Tests Test 11/21/16 18:07 11/21/16 18:40 Range/Units Urine Color YELLOW Urine Clarity SLIGHTLY CLOUDY Urine pH 6.5 5-9 Urine Specific [place] 1.015 L 1.016-1.022 Urine Protein 2+ H NEGATIVE Urine Glucose (UA) NEGATIVE NEGATIVE Urine Ketones NEGATIVE NEGATIVE Urine Nitrite POSITIVE H NEGATIVE Urine Bilirubin NEGATIVE NEGATIVE Urine Urobilinogen NORMAL NORMAL MG/DL Urine Leukocyte Esterase 3+ H NEGATIVE Urine RBC (Auto) 5+ H NEGATIVE Urine RBC 50-100 H /HPF Urine WBC >100 H /HPF Urine Squamous Epithelial Cells 2-5 /HPF Urine Crystals NONE /LPF Urine Bacteria LARGE H /HPF Urine Casts NONE /LPF Urine Mucus NEGATIVE /LPF Urine Culture Indicated YES White Blood Count 13.4 H 4.3-11.0 10^3/uL Red Blood Count 4.57 4.35-5.85 10^6/uL Hemoglobin 13.2 11.5-16.0 G/DL Hematocrit 40 35-52 % Mean Corpuscular Volume 87 80-99 FL Mean Corpuscular Hemoglobin 29 25-34 PG Mean Corpuscular Hemoglobin Concent 33 32-36 G/DL Red Cell Distribution Width 14.4 10.0-14.5 % Platelet Count 240 130-400 10^3/uL Mean Platelet Volume 9.6 7.4-10.4 FL Neutrophils (%) (Auto) 76 H 42-75 % Lymphocytes (%) (Auto) 10 L 12-44 % Monocytes (%) (Auto) 12 0-12 % Eosinophils (%) (Auto) 1 0-10 % Basophils (%) (Auto) 0 0-10 % Neutrophils # (Auto) 10.2 H 1.8-7.8 X 10^3 Lymphocytes # (Auto) 1.3 1.0-4.0 X 10^3 Monocytes # (Auto) 1.7 H 0.0-1.0 X 10^3 Eosinophils # (Auto) 0.2 0.0-0.3 10^3/uL Basophils # (Auto) 0.1 0.0-0.1 10^3/uL Sodium Level 140 135-145 MMOL/L Potassium Level 4.1 3.6-5.0 MMOL/L Chloride Level 105 98-107 MMOL/L Carbon Dioxide Level 24 21-32 MMOL/L Anion Gap 11 5-14 MMOL/L Blood Urea Nitrogen 15 7-18 MG/DL Creatinine 0.85 0.60-1.30 MG/DL Estimat Glomerular Filtration Rate > 60 BUN/Creatinine Ratio 18 Glucose Level 107 H 70-105 MG/DL Lactic Acid Level 1.09 0.50-2.00 MMOL/L Calcium Level 9.0 8.5-10.1 MG/DL Total Bilirubin 0.5 0.1-1.0 MG/DL Aspartate Amino Transf (AST/SGOT) 20 5-34 U/L Alanine Aminotransferase (ALT/SGPT) 18 0-55 U/L Alkaline Phosphatase 71 40-136 U/L C-Reactive Protein High Sensitivity 14.77 H 0.00-0.50 MG/DL Total Protein 7.0 6.4-8.2 GM/DL Albumin 3.8 3.2-4.5 GM/DL My Orders Orders - DAMON HANSEN PA Ua Culture If Indicated (11/21/16 17:45) Saline Lock/Iv-Start (11/21/16 18:16) Cbc With Automated Diff (11/21/16 18:16) Comprehensive Metabolic Panel (11/21/16 18:16) Hs C Reactive Protein (11/21/16 18:16) Acetaminophen Tablet/Caplet (Tylenol T (11/21/16 18:16) Ketorolac Injection (Toradol Injection) (11/21/16 18:16) Ns Iv 1000 Ml (Sodium Chloride 0.9%) (11/21/16 18:16) Chest 1 View, Ap/Pa Only (11/21/16 18:18) Urine Culture (11/21/16 18:07) Lactic Acid Analyzer (11/21/16 18:33) Blood Culture (11/21/16 18:33) Ct Abdomen/Pelvis W (11/21/16 18:42) Ceftriaxone Injection (Rocephin Injectio (11/21/16 18:45) Iohexol Injection (Omnipaque 350 Mg/Ml 1 (11/21/16 19:00) Ns (Ivpb) (Sodium Chloride 0.9% Ivpb Bag (11/21/16 19:00) Acetaminophen Tablet (Tylenol Tablet) (11/21/16 20:06) Morphine Injection (Morphine Injection (11/21/16 20:06) Ns Iv 1000 Ml (Sodium Chloride 0.9%) (11/21/16 20:06) Medications Given in ED Current Medications Medications Dose Ordered Sig/Ronnie Route Start Time Stop Time Status Last Admin Dose Admin Ceftriaxone Sodium 1000 mg/ Sodium Chloride 50 ml @ 100 mls/hr ONCE ONCE IV 11/21/16 18:45 11/21/16 19:14 DC 11/21/16 19:23 100 MLS/HR Iohexol 100 ml ONCE ONCE IV 11/21/16 19:00 11/21/16 19:01 DC 11/21/16 19:13 100 ML Sodium Chloride 100 ml ONCE ONCE IV 11/21/16 19:00 11/21/16 19:01 DC 11/21/16 19:14 80 ML Sodium Chloride 1,000 ml @ 0 mls/hr Q0M ONCE IV 11/21/16 18:16 11/21/16 18:18 DC 11/21/16 18:41 1,000 MLS/HR Sodium Chloride 1,000 ml @ 0 mls/hr Q0M ONCE IV 11/21/16 20:06 11/21/16 20:08 DC 11/21/16 20:19 0 MLS/HR Vital Signs/I&O Vital Sign - Last 12Hours 11/21/16 11/21/16 11/21/16 11/21/16 17:51 20:22 20:43 21:10 Temp 99.1 101.2 101.2 Pulse 87 89 89 Resp 16 18 18 B/P (MAP) 183/69 147/92 Pulse Ox 97 98 98 91 11/21/16 21:10 Pulse Ox 91 O2 Delivery Room Air Blood Pressure Mean: 107 Diagnostic Imaging Diagonstic Imaging: Xray Plain Films/CT/US/NM/MRI: chest Comments FINDINGS: The heart size is normal. Mediastinum is unremarkable. There are patchy bibasilar infiltrates. There is no pleural effusion or pneumothorax. IMPRESSION: Minimal patchy bibasilar infiltrates, otherwise unremarkable. Dictated on workstation # [id number] Reviewed: Reviewed by Me (radiology report reviewed by me) Diagonstic Imaging: CT Plain Films/CT/US/NM/MRI: abdomen, pelvis Comments FINDINGS: There is cardiomegaly. The lung bases are clear. The liver is normal in size. The gallbladder is surgically absent. There is no biliary ductal dilatation. The spleen is unremarkable. The pancreas and adrenal glands are unremarkable. There is a cyst in the right kidney. There is some questionable mild enhancement of the uroepithelium about the left renal pelvis. The possibility of pyelonephritis cannot be excluded. There is no definite evidence of obstructing stone. The aorta is nonaneurysmal. There is a periumbilical hernia containing only omental fat. There is severe diverticular disease without evidence of diverticulitis. IMPRESSION: 1. Questionable enhancement of the uroepithelium about the left renal pelvis with slight indistinct contrast enhancement of the left kidney. Findings are nonspecific, however, concerning for pyelonephritis. Recommend clinical correlation. There is, however, no evidence of an obstructing renal stone. 2. Severe diverticular disease of the colon without evidence of diverticulitis. 3. Periumbilical hernia containing omental fat. 4. Degenerative changes in the spine. Dictated by: Dictated on workstation # [id number] Reviewed: Reviewed by Me (radiology report reviewed by me. ) Departure Communication Time/Spoke to Admitting Phy: 19:[address] Canales graciously accepts patient to his medical service for IV antibiotics, IV fluids, and further management. Progress Notes patient was noted to have spiked a temp of 101.2 degrees F while in the ED. Patient given 1000 mg tylenol and given morphine 4 mg for low back pain. Laboratory findings, diagnostic study findings, and plan for admission discussed with the patient and family. All voiced understanding and wish to proceed with admission. Patient case discussed with Dr. Bowser, he agrees with the plan of care. Impression Impression: Primary Impression: Sepsis Qualified Codes: A41.9 - Sepsis, unspecified organism Additional Impressions: Pyelonephritis Bilateral pneumonia Qualified Codes: J18.9 - Pneumonia, unspecified organism Disposition: ADMITTED INPATIENT Condition: Stable Decision to Admit Reason: Admit from ER (General) Decision to Admit/Date: Nov 21, 2016 Time/Decision to Admit Time: 19:50 Departure-Patient Inst. Referrals: AILSON FERRELL MD (PCP/Family) Primary Care Physician DAMON HANSEN Nov 21, 2016 18:10
[2016-11-21 18:14] LABS: BILIRUBIN,URINE NEGATIVE (NEGATIVE); KETONES,URINE NEGATIVE (NEGATIVE); LEUKOCYTE ESTERASE ,URINE 3+ (NEGATIVE); NITRITE,URINE POSITIVE (NEGATIVE); PH,URINE 6.5 (5-9); PROTEIN,URINE 2+ (NEGATIVE); UROBILINOGEN,URINE NORMAL (NORMAL)
[2016-11-21] MEDS ORDERED: NS IV 1000 ML 1,000 ML IV ONE ×2 (18:16→20:06)
[2016-11-21] MEDS ORDERED: ACETAMINOPHEN 325 MG TABLET/CAPLET (TYLENOL) PO STA (18:16)
[2016-11-21] MEDS ORDERED: KETOROLAC 30 MG/ML VIAL IVP STA (18:16)
[2016-11-21 18:21] LABS: WBC,URINE >100 /HPF
[2016-11-21] MEDS ORDERED: cefTRIAXone INJECTION 1,000 MG in NS (IVPB) 50 ML IV ONE (18:45)
[2016-11-21 18:56] LABS: BASOPHILS # (AUTO) 0.1 10^3/uL (0.0-0.1); BASOPHILS % (AUTO) 0 % (0-10); EOSINOPHILS # (AUTO) 0.2 10^3/uL (0.0-0.3); EOSINOPHILS % (AUTO) 1 % (0-10); LYMPHOCYTES # (AUTO) 1.3 X 10^3 (1.0-4.0); LYMPHOCYTES % (AUTO) 10 % (12-44); MEAN CORPUSCULAR HEMOGLOBIN 29 PG (25-34); MEAN CORPUSCULAR HGB CONC 33 G/DL (32-36); MEAN CORPUSCULAR VOLUME 87 FL (80-99); MEAN PLATELET VOLUME 9.6 FL (7.4-10.4); MONOCYTES # (AUTO) 1.7 X 10^3 (0.0-1.0); MONOCYTES % (AUTO) 12 % (0-12); NEUTROPHILS # (AUTO) 10.2 X 10^3 (1.8-7.8); NEUTROPHILS % (AUTO) 76 % (42-75); PLATELET COUNT 240 10^3/uL (130-400); RED BLOOD COUNT 4.57 10^6/uL (4.35-5.85); RED CELL DISTRIBUTION WIDTH 14.4 % (10.0-14.5); WHITE BLOOD COUNT 13.4 10^3/uL (4.3-11.0)
[2016-11-21] MEDS ORDERED: NS 100 ML (IVPB) BAG IV ONE (19:00)
[2016-11-21] MEDS ORDERED: IOHEXOL 350 MG/ML 100 ML (OMNIPAQUE 350) VIAL IV ONE (19:00)
--- NOTE | 2016-11-21 19:11 | Diagnostic Imaging Report ---
INDICATION: Fever and shortness of breath. COMPARISON: Prior examination from 11/05/16. EXAMINATION: Single view of the chest was obtained. FINDINGS: The heart size is normal. Mediastinum is unremarkable. There are patchy bibasilar infiltrates. There is no pleural effusion or pneumothorax. IMPRESSION: Minimal patchy bibasilar infiltrates, otherwise unremarkable. Dictated by: Dictated on workstation # [id number]
[2016-11-21 19:14] LABS: ALANINE AMINOTRANSFERASE 18 U/L (0-55); ALBUMIN 3.8 GM/DL (3.2-4.5); ANION GAP 11 MMOL/L (5-14); ASPARTATE AMINO TRANSFERASE 20 U/L (5-34); BILIRUBIN,TOTAL 0.5 MG/DL (0.1-1.0); BLOOD UREA NITROGEN 15 MG/DL (7-18); BUN/CREATININE RATIO 18; CARBON DIOXIDE 24 MMOL/L (21-32); CHLORIDE 105 MMOL/L (98-107); CREATININE SERUM 0.85 MG/DL (0.60-1.30); GFR ESTIMATED > 60; GLUCOSE 107 MG/DL (70-105); POTASSIUM 4.1 MMOL/L (3.6-5.0); SODIUM 140 MMOL/L (135-145); hs C REACTIVE PROTEIN 14.77 MG/DL (0.00-0.50)
--- NOTE | 2016-11-21 19:40 | Diagnostic Imaging Report ---
PROCEDURE: CT abdomen and pelvis with contrast. TECHNIQUE: Multiple contiguous axial images were obtained through the abdomen and pelvis after administration of intravenous contrast. INDICATION: Shortness of breath, nausea and fever. Past surgical history includes cholecystectomy, appendectomy and hysterectomy. There is no cancer history. FINDINGS: There is cardiomegaly. The lung bases are clear. The liver is normal in size. The gallbladder is surgically absent. There is no biliary ductal dilatation. The spleen is unremarkable. The pancreas and adrenal glands are unremarkable. There is a cyst in the right kidney. There is some questionable mild enhancement of the uroepithelium about the left renal pelvis. The possibility of pyelonephritis cannot be excluded. There is no definite evidence of obstructing stone. The aorta is nonaneurysmal. There is a periumbilical hernia containing only omental fat. There is severe diverticular disease without evidence of diverticulitis. IMPRESSION: 1. Questionable enhancement of the uroepithelium about the left renal pelvis with slight indistinct contrast enhancement of the left kidney. Findings are nonspecific, however, concerning for pyelonephritis. Recommend clinical correlation. There is, however, no evidence of an obstructing renal stone. 2. Severe diverticular disease of the colon without evidence of diverticulitis. 3. Periumbilical hernia containing omental fat. 4. Degenerative changes in the spine. Dictated by: Dictated on workstation # [id number]
[2016-11-21] MEDS ORDERED: morphine INJ 10 MG/ML 1ML (SYR OR VIAL) IVP STA (20:06)
[2016-11-21] MEDS ORDERED: ACETAMINOPHEN 500 MG TAB (TYLENOL) PO STA (20:06)
--- OUTSIDE RECORDS SUMMARY | 2016-11-21 20:37 | XMS REPORT | Continuity of Care Document ---
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 Ot R06.09 OTHER FORMS OF DYSPNEA 06/13/2016 JUAN MANUEL BANDA [employer]MOKING PIPE MAKER Ot I51.7 CARDIOMEGALY 06/13/2016 JUAN MANUEL BANDA SMOKING PIPE MAKER Ot R06.09 OTHER FORMS OF DYSPNEA 06/25/2016 JUAN MANUEL BANDA SMOKING PIPE MAKER Ot I51.7 CARDIOMEGALY 06/25/2016 JUAN MANUEL BANDA SMOKING PIPE MAKER Ot R06.09 OTHER FORMS OF DYSPNEA 07/10/2016 [...] UNSPECIFIED 11/09/2016 BIANCA QUACH MD Ot 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 [facility] Bacterial blood culture SEE COMMEN [facility] Bacterial susceptibility panel - 11/05/16 10:00 Gentamicin [...] susceptibility test by minimum inhibitory concentration - [facility] Bacterial blood culture - 11/05/16 10:22 Bacterial blood culture NG NR Complete urinalysis with reflex to culture - 11/21/16 18:07 Urine color determination YELLOW NRG Urine clarity determination SLIGHTLY CLOUDY NRG Urine pH measurement by test strip 6.5 5 -9 Specific gravity of urine by test strip 1.015 1.016-1.022 Urine protein assay by test strip, semi-quantitative 2+ NEGATIVE Urine glucose detection by automated test strip NEGATIVE NEGATIVE Erythrocytes detection in urine sediment by light microscopy 5+ NEGATIVE Urine ketones detection by automated test strip NEGATIVE NEGATIVE Urine nitrite detection by test strip POSITIVE NEGATIVE Urine total bilirubin detection by test strip NEGATIVE NEGATIVE Urine urobilinogen measurement by automated test strip (mass/volume) NORMAL NORMAL Urine leukocyte esterase detection by dipstick 3+ NEGATIVE Automated urine sediment erythrocyte count by microscopy (number/high power field) [HPF] NRG Automated urine sediment leukocyte count by microscopy (number/high power field ) > [HPF] NRG Bacteria detection in urine sediment by light microscopy LARGE NRG Squamous epithelial cells detection in urine sediment by light microscopy 2-5 NRG Crystals detection in urine sediment by light microscopy NONE NRG Casts detection in urine sediment by light microscopy NONE NRG Mucus detection in urine sediment by light microscopy NEGATIVE NRG Complete urinalysis with reflex to culture YES NRG Complete blood count (CBC) with automated white blood cell (WBC) differential - 11/21/16 18:40 Blood leukocytes automated count (number/volume) 13.4 10*3/ uL 4.3-11.0 Blood erythrocytes automated count (number/volume) 4.57 10*6 /uL 4.35-5.85 Venous blood hemoglobin measurement (mass/volume) 13.2 g/dL 11.5-16.0 Blood hematocrit (volume fraction) 40 % 35-52 Automated erythrocyte mean corpuscular volume 87 [foz_us] 80-99 Automated erythrocyte mean corpuscular hemoglobin (mass per erythrocyte) 29 pg 25-34 Automated erythrocyte mean corpuscular hemoglobin concentration measurement ( mass/volume) 33 g/dL 32-36 Automated erythrocyte distribution width ratio 14.4 % 10.0-14.5 Automated blood platelet count (count/volume) 240 10*3/uL 130-400 Automated blood platelet mean volume measurement 9.6 [foz_us ] 7.4-10.4 Automated blood neutrophils/100 leukocytes 76 % 42-75 Automated blood lymphocytes/100 leukocytes 10 % 12-44 Blood monocytes/100 leukocytes 12 % 0-12 Automated blood eosinophils/100 leukocytes 1 % 0-10 Automated blood basophils/100 leukocytes 0 % 0-10 Blood neutrophils automated count (number/volume) 10.2 10*3 1.8-7.8 Blood lymphocytes automated count (number/volume) 1.3 10*3 1.0-4.0 Blood monocytes automated count (number/volume) 1.7 10*3 0.0-1.0 Automated eosinophil count 0.2 10*3/uL 0.0-0.3 Automated blood basophil count (count/volume) 0.1 10*3/uL 0.0-0.1 Blood lactic acid measurement (moles/volume) - 11/21/16 18:40 Blood lactic acid measurement (moles/volume) 1.09 mmol/L 0.50-2.00 Comprehensive metabolic panel - 11/21/16 18:40 Serum or plasma sodium measurement (moles/volume) 140 mmol/ L 135-145 Serum or plasma potassium measurement (moles/volume) 4.1 mmol/L 3.6-5.0 Serum or plasma chloride measurement (moles/volume) 105 mmol /L 98-107 Carbon dioxide 24 mmol/L 21-32 Serum or plasma anion gap determination (moles/volume) 11 mmol/L 5-14 Serum or plasma urea nitrogen measurement (mass/volume) 15 mg/dL 7-18 Serum or plasma creatinine measurement (mass/volume) 0.85 mg /dL 0.60-1.30 Serum or plasma urea nitrogen/creatinine mass ratio 18 NRG Serum or plasma creatinine measurement with calculation of estimated glomerular filtration rate > NRG Serum or plasma glucose measurement (mass/volume) 107 mg/dL 70-105 Serum or plasma calcium measurement (mass/volume) 9.0 mg/dL 8.5-10.1 Serum or plasma total bilirubin measurement (mass/volume) 0.5 mg/dL 0.1-1.0 Serum or plasma alkaline phosphatase measurement (enzymatic activity/volume) 71 U/L 40-136 Serum or plasma aspartate aminotransferase measurement (enzymatic activity/ volume) 20 U/L 5-34 Serum or plasma alanine aminotransferase measurement (enzymatic activity/volume ) 18 U/L 0-55 Serum or plasma protein measurement (mass/volume) 7.0 g/dL 6.4-8.2 Serum or plasma albumin measurement (mass/volume) 3.8 g/dL 3.2-4.5 Serum or plasma C reactive protein measurement (mass/volume) - 11/21/16 18:40 Serum or plasma C reactive protein measurement (mass/volume) 14.77 mg/dL 0.00-0.50 Encounters ACCT No. Visit Date/Time Discharge Status Pt. Type Provider Facility Loc./Unit Complaint [id number] 05/06/2012 09:57:00 05/06/2012 23: 59:59 CLS Outpatient SUGAR LAWRENCE, GOSIA
[2016-11-21 20:50] VITALS: BP 155/72
[2016-11-21] MEDS ORDERED: LEVOFLOXACIN 750 MG/150 ML IV 150 ML IV ONE (21:21)
[2016-11-21] MEDS: NS IV 1000 ML 1,000 ML IV SCH (21:22)
[2016-11-21] MEDS ORDERED: RT-ALBUTEROL/IPRATROPIUM 3 ML (DUONEB) VIAL INH PRN (21:30)
[2016-11-21] MEDS ORDERED: ACETAMINOPHEN 500 MG TAB (TYLENOL) PO PRN (21:45)
[2016-11-21] MEDS ORDERED: ONDANSETRON 4 MG/2 ML (SDV) Z0FRAN IV PRN (21:45)
[2016-11-21] MEDS ORDERED: NS W/KCL 20 MEQ/L 1,000 ML IV SCH (21:45)
[2016-11-21] MEDS: PROMETHAZINE INJ 25 MG/ML (PHENERGAN) AMP IV PRN (23:17)
[2016-11-22 00:03] VITALS: BP 132/58
[2016-11-22 03:36] VITALS: BP 120/59
[2016-11-22] MEDS: KETOROLAC 30 MG/ML VIAL IVP PRN ×2 (05:43→20:30)
[2016-11-22 07:10] LABS: BASOPHILS % (AUTO) 0 % (0-10); EOSINOPHILS # (AUTO) 0.1 10^3/uL (0.0-0.3); EOSINOPHILS % (AUTO) 1 % (0-10); LYMPHOCYTES # (AUTO) 1.6 X 10^3 (1.0-4.0); LYMPHOCYTES % (AUTO) 14 % (12-44); MEAN CORPUSCULAR HEMOGLOBIN 29 PG (25-34); MEAN CORPUSCULAR HGB CONC 32 G/DL (32-36); MEAN CORPUSCULAR VOLUME 88 FL (80-99); MEAN PLATELET VOLUME 9.7 FL (7.4-10.4); MONOCYTES # (AUTO) 1.4 X 10^3 (0.0-1.0); MONOCYTES % (AUTO) 12 % (0-12); NEUTROPHILS # (AUTO) 8.3 X 10^3 (1.8-7.8); NEUTROPHILS % (AUTO) 72 % (42-75); PLATELET COUNT 212 10^3/uL (130-400); RED BLOOD COUNT 4.11 10^6/uL (4.35-5.85); RED CELL DISTRIBUTION WIDTH 14.5 % (10.0-14.5); WHITE BLOOD COUNT 11.5 10^3/uL (4.3-11.0)
[2016-11-22 07:32] LABS: ALANINE AMINOTRANSFERASE 15 U/L (0-55); ALBUMIN 3.2 GM/DL (3.2-4.5); ANION GAP 9 MMOL/L (5-14); ASPARTATE AMINO TRANSFERASE 14 U/L (5-34); BILIRUBIN,TOTAL 0.6 MG/DL (0.1-1.0); BLOOD UREA NITROGEN 11 MG/DL (7-18); BUN/CREATININE RATIO 15; CARBON DIOXIDE 23 MMOL/L (21-32); CHLORIDE 109 MMOL/L (98-107); CREATININE SERUM 0.71 MG/DL (0.60-1.30); GFR ESTIMATED > 60; GLUCOSE 95 MG/DL (70-105); POTASSIUM 3.7 MMOL/L (3.6-5.0); SODIUM 141 MMOL/L (135-145)
[2016-11-22] MEDS: RT-ALBUTEROL/IPRATROPIUM 3 ML (DUONEB) VIAL INH SCH ×3 (07:55→20:17)
[2016-11-22 08:00] VITALS: BP 123/60
[2016-11-22] MEDS: CEFEPIME INJECTION 2,000 MG in NS (IVPB) 50 ML IV SCH (08:32)
[2016-11-22] MEDS ORDERED: CEFEPIME INJECTION 2,000 MG in NS (IVPB) 50 ML IV SCH (09:00)
--- NOTE | 2016-11-22 09:41 | History & Physicial ---
History of Present Illness History of Present Illness Reason for visit/HPI patient lives alone. Patient has low back pain and fever. Patient came out to the emergency room. Patient 2 weeks ago has been treated for UTI with Keflex at ER. UA today shows infection. CAT scan of abdomen and pelvis shows pyelonephritis Chest x-ray shows pneumonia. Patient not feeling good and not eating. Patient admitted. Patient has history of hypertension and stomach problems. Surgeries. Cataract, left knee scope, Hoffman's cyst, hysterectomy, gallbladder and exploratory Date of Admission Nov 21, 2016 at 20:32 Time Seen by Provider: 09:35 I consulted on this patient on 11/22/16 09:35 Attending Physician Georgie Rosario MD Admitting Physician Georgie Rosario MD Consult Allergies and Home Medications Allergies Coded Allergies: No Known Drug Allergies (Verified , 07/16/16) Home Medications Amlodipine Besylate 5 Mg Tablet, 5 MG PO DAILY, (Reported) Aspirin 81 Mg Tablet.dr, 81 MG PO DAILY, (Reported) Cephalexin 500 Mg Tablet, 500 MG PO BID, #14 Ref 0 Prescribed by: BIANCA QUACH on 11/05/16 1128 Pantoprazole Sodium 40 Mg Tablet.dr, 40 MG PO DAILY, #90 Prescribed by: YESI ROWELL on 07/16/16 1315 Past Ghnbepl-Ahyism-Kyihht Hx Patient Social History Employed/Student: unemployed Alcohol Use: Denies Use Recreational Drug Use: Yes Smoking Status: Never a Smoker Physical Abuse Screen: No Sexual Abuse: No Recent Foreign Travel: No Contact w/other who traveled: No Recent Hopitalizations: No Recent Infectious Disease Expo: No Immunizations Up To Date Tetanus Booster (TDap): Unknown Date of Pneumonia Vaccine: Feb 08, 2011 Date of Influenza Vaccine: Feb 16, 2017 Seasonal Allergies Seasonal Allergies: No Surgeries HX Surgeries: Yes (CYST REMOVED FROM KNEE, CATARACTS) Surgeries: Gallbladder, Hysterectomy Respiratory Hx Respiratory Disorders: No Cardiovascular Hx Cardiovascular Disorders: Yes Cardiac Disorders: Hypertension Neurological Hx Neurological Disorders: No Reproductive System Hx Reproductive Disorders: No Sexually Transmitted Disease: No HIV/AIDS: No Genitourinary Hx Genitourinary Disorders: No Gastrointestinal Hx Gastrointestinal Disorders: No (RECTAL BLEEDING) Gastrointestinal Disorders: Gastroesophageal Reflux, Diverticulosis, Polyps Musculoskeletal Hx Musculoskeletal Disorders: No Endocrine Hx Endocrine Disorders: No HEENT HX ENT Disorders: Yes (WEARS GLASSES, HEARING AIDES) Loss of Vision: Bilateral Hearing Impairment: Hard of Hearing Cancer Hx Cancer: No Psychosocial Hx Psychiatric Problems: No Integumentary HX Skin/Integumentary Disorder: No Blood Transfusions Hx Blood Disorders: No Adverse Reaction to a Blood Tr: No (N/A) Reviewed Nursing Assessment Reviewed/Agree w Nursing PMH: Yes Family Medical History Significant Family History: No Pertinent Family Hx Constitutional: malaise, weakness EENTM: no symptoms reported Respiratory: short of breath Cardiovascular: no symptoms reported Gastrointestinal: no symptoms reported Genitourinary: frequency Physical Exam Vital Signs Vital Sign - Last 12Hours 11/21/16 17:51 Temp 99.1 Pulse 87 Resp 16 B/P (MAP) 183/69 Pulse Ox 97 Capillary Refill : Less Than 3 Seconds General Appearance: No Apparent Distress, Thin Eyes: Bilateral Eye Normal Inspection HEENT: Normal ENT Inspection Neck: Full Range of Motion, Normal Inspection Respiratory: Chest Non Tender, No Accessory Muscle Use, No Respiratory Distress Cardiovascular: Regular Rate, Rhythm, No Murmur Gastrointestinal: Non Tender, Soft Assessment/Plan Assessment and Plan pyelonephritis. infection. Pneumonia. Weakness. Not eating. Patient lives alone. infection failure as outpatientarea Hypertension Problems: Clinical Quality Measures DVT/VTE Risk/Contraindication: Risk Factor Score Per Nursin RFS Level Per Nursing on Admit: 3=High CAROLYNE ROSSI DO Nov 22, 2016 09:41
[2016-11-22] MEDS: morphine INJ 4 MG/ML 1 ML (VIAL/SYRINGE) IV PRN ×2 (10:03→16:12)
[2016-11-22] MEDS: ENOXAPARIN 40 MG/0.4 ML (LOVENOX) SYR SC SCH (10:03)
[2016-11-22] MEDS: ASPIRIN E.C. 81 MG (ECOTRIN) TAB PO SCH (10:03)
[2016-11-22] MEDS: PANTOPRAZOLE 40 MG (PROTONIX) TAB PO SCH (10:04)
[2016-11-22] MEDS: amLODIPine 5 MG (NORVASC) TAB PO SCH (10:04)
--- NOTE | 2016-11-22 11:17 | Diagnostic Imaging Report ---
INDICATION: Pneumonia. TECHNIQUE: Two view chest 8:37 AM CORRELATION STUDY: 11/21/2016 FINDINGS: Heart size is enlarged. Vasculature within normal limits. Perhaps minimal infiltrate or atelectasis left lung base along with small left pleural effusion. Mild biapical pleural thickening. Visualized osseous structures are unremarkable. IMPRESSION: 1. Minimal atelectasis and effusion in the left lung base. Dictated by: Dictated on workstation # [id number]
[2016-11-22 11:45] VITALS: BP 134/62
--- NOTE | 2016-11-22 11:47 | Diagnostic Imaging Report ---
INDICATION: Low back pain TECHNIQUE: AP, Lateral and Spot imaging of the lumbar spine CORRELATION STUDY: None FINDINGS: Straightening of the normal lumbar lordotic curvature. There is otherwise normal alignment. Lumbar vertebral body heights overall fairly well maintained. However, there is slight irregularity superior L3 and L2 endplates. Multilevel disc space narrowing and endplate lipping is noted most pronounced T12-L1, L1-L2 and to a lesser degree L2-L3, L4-5, and L5-S1 levels. SI joints without significant effusion or erosion. Degenerative changes bilateral hips. Cholecystectomy clips in the right upper quadrant. IMPRESSION: Multilevel degenerative changes. Disc space narrowing most severe at L5-S1 level. No definitive evidence for acute bony abnormality. Dictated by: Dictated on workstation # [id number]
[2016-11-22 16:00] VITALS: BP 134/66
[2016-11-22] MEDS: NS IV 1000 ML 1,000 ML IV SCH (16:12)
[2016-11-22] MEDS: PROMETHAZINE INJ 25 MG/ML (PHENERGAN) AMP IV PRN (17:48)
[2016-11-22 20:00] VITALS: BP 132/60
[2016-11-22] MEDS: LEVOFLOXACIN 750 MG/150 ML IV 150 ML IV SCH (20:32)
[2016-11-22] MEDS: traZODone 50 MG (DESYREL) TAB PO SCH (20:34)
[2016-11-23] VITALS: BP 118/56
[2016-11-23] MEDS: KETOROLAC 30 MG/ML VIAL IVP PRN (04:39)
[2016-11-23 06:17] LABS: BASOPHILS # (AUTO) 0.1 10^3/uL (0.0-0.1); BASOPHILS % (AUTO) 1 % (0-10); EOSINOPHILS # (AUTO) 0.4 10^3/uL (0.0-0.3); EOSINOPHILS % (AUTO) 5 % (0-10); LYMPHOCYTES # (AUTO) 1.5 X 10^3 (1.0-4.0); LYMPHOCYTES % (AUTO) 20 % (12-44); MEAN CORPUSCULAR HEMOGLOBIN 29 PG (25-34); MEAN CORPUSCULAR HGB CONC 33 G/DL (32-36); MEAN CORPUSCULAR VOLUME 88 FL (80-99); MEAN PLATELET VOLUME 9.7 FL (7.4-10.4); MONOCYTES # (AUTO) 1.3 X 10^3 (0.0-1.0); MONOCYTES % (AUTO) 18 % (0-12); NEUTROPHILS # (AUTO) 4.2 X 10^3 (1.8-7.8); NEUTROPHILS % (AUTO) 56 % (42-75); PLATELET COUNT 196 10^3/uL (130-400); RED BLOOD COUNT 3.88 10^6/uL (4.35-5.85); RED CELL DISTRIBUTION WIDTH 14.5 % (10.0-14.5); WHITE BLOOD COUNT 7.4 10^3/uL (4.3-11.0)
[2016-11-23 06:32] LABS: ANION GAP 10 MMOL/L (5-14); BLOOD UREA NITROGEN 8 MG/DL (7-18); BUN/CREATININE RATIO 11; CALCIUM 8.3 MG/DL (8.5-10.1); CARBON DIOXIDE 21 MMOL/L (21-32); CHLORIDE 111 MMOL/L (98-107); CREATININE SERUM 0.72 MG/DL (0.60-1.30); GFR ESTIMATED > 60; GLUCOSE 93 MG/DL (70-105); POTASSIUM 3.5 MMOL/L (3.6-5.0); SODIUM 142 MMOL/L (135-145)
[2016-11-23] MEDS: RT-ALBUTEROL/IPRATROPIUM 3 ML (DUONEB) VIAL INH SCH ×3 (07:21→20:04)
[2016-11-23 07:30] VITALS: BP 155/71
--- NOTE | 2016-11-23 07:51 | Progress Note (SOAP) ---
Subjective Time Seen by Provider: 07:35 Subjective/Events-last exam patient feeling better today. Patient has less pain in the lower back. Blood cultures 2 positive for Escherichia coli. Urine culture positive for Escherichia coli sensitive to cefepime and Cipro. Chest x-ray shows minimal pneumonia. Patient afebrile. White blood cell count normal now. Patient getting around better. Patient improving Objective Exam Vital Signs Date Time Temp Pulse Resp B/P (MAP) Pulse Ox O2 Delivery O2 Flow Rate FiO2 11/23/16 07:21 99 Room Air 11/23/16 00:00 98.8 69 20 118/56 94 Room Air 11/22/16 21:00 91 Room Air 11/22/16 20:17 96 Room Air 11/22/16 20:00 99.7 76 24 132/60 93 Room Air 11/22/16 18:19 101.2 11/22/16 17:46 101.4 11/22/16 16:00 98.7 87 22 134/66 97 Room Air 11/22/16 14:52 93 Room Air 11/22/16 11:45 98.6 62 20 134/62 96 Room Air 11/22/16 08:30 91 Room Air 11/22/16 08:00 98.2 72 20 123/60 97 Room Air 11/22/16 07:55 91 Room Air I & O 11/23/16 07:00 Intake Total 2970 ml Output Total 2900 ml Balance 70 ml Capillary Refill : Less Than 3 Seconds General Appearance: No Apparent Distress, WD/WN, Thin HEENT: Normal ENT Inspection Neck: Full Range of Motion, Normal Inspection Respiratory: Chest Non Tender, Lungs Clear, Normal Breath Sounds, No Accessory Muscle Use, No Respiratory Distress Cardiovascular: Regular Rate, Rhythm, No Murmur Gastrointestinal: non tender Results Lab Laboratory Tests 11/23/16 05:29 Laboratory Tests 11/23/16 05:29: White Blood Count 7.4, Red Blood Count 3.88L, Hemoglobin 11.1L, Hematocrit 34L, Mean Corpuscular Volume 88, Mean Corpuscular Hemoglobin 29, Mean Corpuscular Hemoglobin Concent 33, Red Cell Distribution Width 14.5, Platelet Count 196, Mean Platelet Volume 9.7, Neutrophils (%) (Auto) 56, Lymphocytes (%) (Auto) 20, Monocytes (%) (Auto) 18H, Eosinophils (%) (Auto) 5, Basophils (%) (Auto) 1, Neutrophils # (Auto) 4.2, Lymphocytes # (Auto) 1.5, Monocytes # (Auto) 1.3H, Eosinophils # (Auto) 0.4H, Basophils # (Auto) 0.1, Sodium Level 142, Potassium Level 3.5L, Chloride Level 111H, Carbon Dioxide Level 21, Anion Gap 10, Blood Urea Nitrogen 8, Creatinine 0.72, Estimat Glomerular Filtration Rate > 60, BUN/ Creatinine Ratio 11, Glucose Level 93, Calcium Level 8.3L Microbiology 11/21/16 Blood Culture - Preliminary, Resulted Gram Negative Van 11/21/16 Urine Culture - Preliminary, Resulted Probable E.coli Radiology NAME: SHAILA HUYNH MED REC#: [id number] PT STATUS: ADM IN : 1930 PHYSICIAN: CAROLYNE ROSSI DO ADMIT DATE: 11/21/16 Signed Date of Exam: 11/22/16 LUMBAR SPINE - 2-3 VIEWS INDICATION: Low back pain TECHNIQUE: AP, Lateral and Spot imaging of the lumbar spine CORRELATION STUDY: None FINDINGS: Straightening of the normal lumbar lordotic curvature. There is otherwise normal alignment. Lumbar vertebral body heights overall fairly well maintained. However, there is slight irregularity superior L3 and L2 endplates. Multilevel disc space narrowing and endplate lipping is noted most pronounced T12-L1, L1-L2 and to a lesser degree L2-L3, L4-5, and L5-S1 levels. SI joints without significant effusion or erosion. Degenerative changes bilateral hips. Cholecystectomy clips in the right upper quadrant. IMPRESSION: Multilevel degenerative changes. Disc space narrowing most severe at L5-S1 level. No definitive evidence for acute bony abnormality. Dictated by: Dictated on workstation # [id number] Assessment/Plan Assessment/Plan Assess & Plan/Chief Complaint sepsis better. White blood cell count better. Blood cultures positive for Escherichia coli 2. Urine culture positive for Escherichia coli. Chest x-ray minimal pneumonia. Back doing better no acute process lower back. Patient afebrile. Cefepime and Cipro positive for Escherichia coli Clinical Quality Measures DVT/VTE Risk/Contraindication: Risk Factor Score Per Nursin RFS Level Per Nursing on Admit: 3=High CAROLYNE ROSSI DO Nov 23, 2016 07:51
[2016-11-23] MEDS: ASPIRIN E.C. 81 MG (ECOTRIN) TAB PO SCH (08:47)
[2016-11-23] MEDS: amLODIPine 5 MG (NORVASC) TAB PO SCH (08:47)
[2016-11-23] MEDS: PANTOPRAZOLE 40 MG (PROTONIX) TAB PO SCH (08:47)
[2016-11-23] MEDS: CEFEPIME INJECTION 2,000 MG in NS (IVPB) 50 ML IV SCH (08:47)
[2016-11-23] MEDS: NS IV 1000 ML 1,000 ML IV SCH (09:41)
[2016-11-23] MEDS: ENOXAPARIN 40 MG/0.4 ML (LOVENOX) SYR SC SCH (09:41)
[2016-11-23] MEDS ORDERED: MILK OF MAGNESIA 400 MG/5 ML 30 ML UDC PO ONE (10:00)
[2016-11-23 11:03] VITALS: BP 126/59
[2016-11-23 16:22] VITALS: BP 151/69
[2016-11-23 20:00] VITALS: BP 167/72
[2016-11-23] MEDS: LEVOFLOXACIN 750 MG/150 ML IV 150 ML IV SCH (20:18)
[2016-11-23] MEDS: traZODone 50 MG (DESYREL) TAB PO SCH (20:18)
[2016-11-23 23:52] VITALS: BP 134/62
[2016-11-24] MEDS: NS IV 1000 ML 1,000 ML IV SCH ×3 (01:15→22:10)
[2016-11-24 05:42] LABS: MEAN PLATELET VOLUME 9.3 FL (7.4-10.4); RED BLOOD COUNT 3.94 10^6/uL (4.35-5.85); RED CELL DISTRIBUTION WIDTH 14.4 % (10.0-14.5); WHITE BLOOD COUNT 6.3 10^3/uL (4.3-11.0)
[2016-11-24 06:01] LABS: ANION GAP 13 MMOL/L (5-14); BLOOD UREA NITROGEN 8 MG/DL (7-18); BUN/CREATININE RATIO 12; CARBON DIOXIDE 19 MMOL/L (21-32); CHLORIDE 109 MMOL/L (98-107); CREATININE SERUM 0.69 MG/DL (0.60-1.30); GFR ESTIMATED > 60; GLUCOSE 115 MG/DL (70-105); POTASSIUM 3.4 MMOL/L (3.6-5.0); SODIUM 141 MMOL/L (135-145)
[2016-11-24] MEDS: RT-ALBUTEROL/IPRATROPIUM 3 ML (DUONEB) VIAL INH SCH (07:08)
--- NOTE | 2016-11-24 08:22 | Progress Note (SOAP) ---
Subjective Date Seen by Provider: Nov 24, 2016 Time Seen by Provider: 08:50 Subjective/Events-last exam PT IS AN 86 Y/O FEMALE WHO WAS ADMITTED WITH SEPSIS, UTI, PNEUMONIA, ECOLI POSITIVE BLOOD CULTURES. TODAY SHE STATES THAT SHE FEELS BETTER TODAY. SHE REPORTS THAT HER BACK PAIN IS IMPROVED, ABDOMINAL PAIN IS BETTER. SHE HAS WEAKNESS. Review of Systems General: Fatigue, Malaise HEENT: No Head Aches Pulmonary: Dyspnea, Cough Cardiovascular: No: Chest Pain Gastrointestinal: No: Nausea Genitourinary: No Dysuria Neurological: Weakness Objective Exam Vital Signs Date Time Temp Pulse Resp B/P (MAP) Pulse Ox O2 Delivery O2 Flow Rate FiO2 11/24/16 07:08 96 11/24/16 07:08 96 Room Air 11/24/16 00:00 97.6 78 20 93 Room Air 11/23/16 23:52 72 134/62 11/23/16 21:00 98 Room Air 11/23/16 20:05 97 Room Air 11/23/16 20:00 98.1 74 16 167/72 98 Room Air 11/23/16 16:22 97.5 72 20 151/69 95 Room Air 11/23/16 15:15 99 Room Air 11/23/16 14:25 95 Room Air 11/23/16 11:03 97.7 66 18 126/59 95 Room Air I & O 11/24/16 07:00 Intake Total 4220 ml Output Total 2350 ml Balance 1870 ml Capillary Refill : Less Than 3 Seconds General Appearance: No Apparent Distress, WD/WN HEENT: PERRL/EOMI, Pharynx Normal Neck: Full Range of Motion, Supple Respiratory: Chest Non Tender, Decreased Breath Sounds (BASES) Cardiovascular: Regular Rate, Rhythm Gastrointestinal: normal bowel sounds, non tender, soft, no organomegaly Extremity: Normal Capillary Refill, No Pedal Edema Neurologic/Psychiatric: Alert, Oriented x3, No Motor/Sensory Deficits, Normal Mood/Affect Lymphatic: No Adenopathy Results Lab Laboratory Tests 11/24/16 05:12: White Blood Count 6.3, Red Blood Count 3.94L, Hemoglobin 11.3L, Hematocrit 34L, Mean Corpuscular Volume 87, Mean Corpuscular Hemoglobin 29, Mean Corpuscular Hemoglobin Concent 33, Red Cell Distribution Width 14.4, Platelet Count 213, Mean Platelet Volume 9.3, Sodium Level 141, Potassium Level 3.4L, Chloride Level 109H, Carbon Dioxide Level 19L, Anion Gap 13, Blood Urea Nitrogen 8, Creatinine 0.69, Estimat Glomerular Filtration Rate > 60, BUN/Creatinine Ratio 12, Glucose Level 115H, Calcium Level 8.0L Microbiology 11/21/16 Blood Culture - Preliminary, Resulted Escherichia Coli 11/21/16 Urine Culture - Final, Complete Escherichia Coli Assessment/Plan Assessment/Plan Assess & Plan/Chief Complaint SEPSIS ECOLI POSITIVE BLOOD CULTURES UTI -ECOLI PNEUMONIA FATIGUE WEAKNESS HYPERTENSION GERD SEPSIS WITH ECOLI POSITIVE BLOOD CULTURES - MONITOR SYMPTOMS - STOP CURRENT ANTIBIOTIC - START ON ROCEPHIN. UTI -ECOLI - START ON ROCEPHIN. PNEUMONIA - ON ROCEPHIN - MONITOR CHEST XRAYS. FATIGUE - WEAKNESS - IMPROVING - START PHYSICAL THERAPY HYPERTENSION - ON HOME MEDICATIONS. GERD - ON PPI Clinical Quality Measures DVT/VTE Risk/Contraindication: Risk Factor Score Per Nursin RFS Level Per Nursing on Admit: 3=High ALISON FERRELL MD Nov 24, 2016 08:22
[2016-11-24 08:46] VITALS: BP 120/58
[2016-11-24] MEDS ORDERED: ZOLP5TAB7 PO (09:09)
[2016-11-24] MEDS ORDERED: FOLI-74 PO (09:09)
[2016-11-24] MEDS ORDERED: PANT40TA3 PO (09:09)
[2016-11-24] MEDS: SENNA W/DOCUSATE (SENOKOT S) TABLET PO SCH ×2 (09:22→20:08)
[2016-11-24] MEDS: ASPIRIN E.C. 81 MG (ECOTRIN) TAB PO SCH (09:23)
[2016-11-24] MEDS: PANTOPRAZOLE 40 MG (PROTONIX) TAB PO SCH (09:23)
[2016-11-24] MEDS: amLODIPine 5 MG (NORVASC) TAB PO SCH (09:23)
[2016-11-24] MEDS: cefTRIAXone INJECTION 1,000 MG in NS (IVPB) 50 ML IV SCH (09:28)
[2016-11-24] MEDS: ENOXAPARIN 40 MG/0.4 ML (LOVENOX) SYR SC SCH (09:31)
--- NOTE | 2016-11-24 10:06 | Diagnostic Imaging Report ---
EXAMINATION: PA and lateral views of the chest. INDICATION: Followup pneumonia. COMPARISON: 11/22/16. FINDINGS: The lungs are hyperinflated. The heart size is mildly enlarged. There is a small left pleural effusion. Minimal adjacent left basilar opacity likely atelectasis is again seen. The right lung is clear. No pneumothorax. IMPRESSION: Cardiomegaly. Small left effusion and left basilar atelectasis. Dictated by: Dictated on workstation # [id number]
--- NOTE | 2016-11-24 11:53 | Physical Therapy Evaluation ---
PT Evaluation-General Medical Diagnosis Admission Date Nov 21, 2016 at 20:32 Medical Diagnosis: weakness Onset Date: Nov 21, 2016 Therapy Diagnosis Therapy Diagnosis: impaired mobility, strength, endurance, balance Height/Weight Height (Feet): 5 Height (Inches): 5.00 Weight (Pounds): 150 Weight (Ounces): 0.0 Precautions Precautions/Isolations: Standard Precautions Referral Physician: Georgie Rosario MD Reason for Referral: Evaluation/Treatment Medical History Pertinent Medical History: GERD, HTN Additional Medical History rectal bleeding, diverticulosis, polyps, SAXMAN, surg (knee cyst, cataracts, gallbladder, hysterectomy) Current History went to ER with sepsis, UTI, pneumonia Reviewed History: Yes Social History Home: Single Level Current Living Status: Alone Entry Into Home: Stairs With Railing PT Steps Into Home: 3 patient states family will be able to assist her at home if she needs it Prior/Core FIM Prior Level of Function Functional [place] Measure 0=Not Assessed/NA 4=Minimal Assistance 1=Total Assistance 5=Supervision or Setup 2=Maximal Assistance 6=Modified [place] 3=Moderate Assistance 7=Complete [place] Bed Mobility: 7 Transfers (B,C,W/C) (FIM): 7 Gait: 7 patient has a rolling walker from a previous knee surgery PT Evaluation-Current Subjective Patient in chair pre tx, family in the room. She has no complaints of pain. Seems slightly confused. Pt/Family Goals to be independent at home Objective Patient Orientation: Person, Confused, Place Attachments: IV ROM/Strength ROM Lower Extremities WNL Strenght Lower Extremities right lower extremity (hip flexion 4/5, knee flexion 4/5, knee extension 5/5, dorsiflexion 4/5), left lower extremity (hip flexion 4/5, knee flexion 4/5, knee extension 5/5, dorsiflexion 4/5) Neuromuscular (Tone, Coordination, Reflexes) WNL Sensory Vision: Wears Glasses Hearing: Impaired Sensation Right Lower Extremit: Intact Sensation Left Lower Extremity: Intact Transfers Functional [place] Measure 0=Not Assessed/NA 4=Minimal Assistance 1=Total Assistance 5=Supervision or Setup 2=Maximal Assistance 6=Modified [place] 3=Moderate Assistance 7=Complete [place] Transfers (B, C, W/C) (FIM): 4 Sit to/from Stand: 4 CGA, cues for safety and hand placement Gait Mode of Locomotion: Walk Anticipated Mode of Locomotion: Walk Gait (FIM): 4 Distance: 200' Gait Level of Assist: 4 Gait Persons Needed: 1 Gait Assistive Device: FWW Comments/Gait Description CGA, cues for direction, patient has moments of unsteadiness but no LOB and no assistance needed to help patient to maintain balance Balance Sitting Static: Normal Sitting Dynamic: Normal Standing Static: Fair Standing Dynamic: Fair Treatment seated ex x20 (AP, LAQ, hip flexion) Assessment/Needs Patient has impaired mobility, balance, strength, endurance. She is at risk for a fall, needs assist with transfers and ambulation. Rehab Potential: Fair PT Battery Container Inspector Goals Group Home Goals PT Group Home Goals Time Frame: Dec 01, 2016 Transfers (B,C,W/C) (FIM): 5 Gait (FIM): 5 Distance: 300' Gait Level of Assist: 5 Gait Assistive Device: FWW PT Plan Problem List Problem List: Activity Tolerance, Functional Strength, Safety, Balance, Gait, Transfer, Bed Mobility Treatment/Plan Treatment Plan: Continue Plan of Care Treatment Plan: Bed Mobility, Education, Functional Activity Tip, Functional Strength, Gait, Safety, Therapeutic Exercise, Transfers Treatment Duration: Dec 01, 2016 Frequency: 6 times per week Estimated Hrs Per Day: .25 hour per day Patient and/or Family Agrees t: Yes Safety Risks/Education Patient Education: Gait Training, Transfer Techniques, Correct Positioning, Safety Issues Teaching Recipient: Patient Teaching Methods: Demonstration, Discussion Response to Teaching: Reinforcement Needed Discharge Recommendations Plan Patient will perform bed mobility and transfer training, balance and endurance training, functional strengthening, stair training, gait training, and education , to improve functional mobility and independence at home. Therapy D/C Recommendations: Home w/ Family Support Time/GCodes Time In: 1125 Time Out: 1145 Total Billed Treatment Time: 20 Total Billed Treatment 1 visit KINJAL 20' JANEL CHILEL PT Nov 24, 2016 11:53
[2016-11-24 15:39] VITALS: BP 145/67
[2016-11-24] MEDS: traZODone 50 MG (DESYREL) TAB PO SCH (20:08)
[2016-11-24] MEDS: LORazepam 0.5 MG (ATIVAN) TABLET PO PRN (20:08)
[2016-11-25] VITALS: BP 148/74
[2016-11-25 08:52] VITALS: BP 169/77
[2016-11-25] MEDS: ENOXAPARIN 40 MG/0.4 ML (LOVENOX) SYR SC SCH (09:15)
[2016-11-25] MEDS: PANTOPRAZOLE 40 MG (PROTONIX) TAB PO SCH (09:15)
[2016-11-25] MEDS: SENNA W/DOCUSATE (SENOKOT S) TABLET PO SCH ×2 (09:15→20:53)
[2016-11-25] MEDS: amLODIPine 5 MG (NORVASC) TAB PO SCH ×2 (09:16→18:18)
[2016-11-25] MEDS: ASPIRIN E.C. 81 MG (ECOTRIN) TAB PO SCH (09:16)
--- NOTE | 2016-11-25 09:18 | Progress Note (SOAP) ---
Subjective Date Seen by Provider: Nov 25, 2016 Time Seen by Provider: 08:25 Subjective/Events-last exam PT REPORTS STILL FEELING POORLY, SHE REPORTS THAT SHE IS HAVING COUGH, CONGESTION, OVERALL FATIGUE. Review of Systems General: No Chills, Fatigue Pulmonary: Dyspnea, Cough Cardiovascular: No: Chest Pain Gastrointestinal: No: Abdominal Pain, Nausea Genitourinary: No Dysuria Neurological: Weakness, No: Confusion Objective Exam Vital Signs Date Time Temp Pulse Resp B/P (MAP) Pulse Ox O2 Delivery O2 Flow Rate FiO2 11/25/16 08:52 98.8 71 20 169/77 97 Room Air 11/25/16 07:13 95 Room Air 11/25/16 00:00 96.8 65 16 148/74 95 Room Air 11/24/16 21:00 Room Air 11/24/16 19:39 Room Air 11/24/16 15:39 98.2 68 18 145/67 98 Room Air 11/24/16 09:43 Room Air I & O 11/25/16 07:00 Intake Total 4040 ml Output Total 5010 ml Balance -970 ml Capillary Refill : Less Than 3 Seconds General Appearance: No Apparent Distress, WD/WN HEENT: PERRL/EOMI, Pharynx Normal Neck: Full Range of Motion, Supple Respiratory: Chest Non Tender, Crackles, Decreased Breath Sounds Cardiovascular: Regular Rate, Rhythm Gastrointestinal: normal bowel sounds, non tender, soft Extremity: Normal Capillary Refill, No Pedal Edema Neurologic/Psychiatric: Alert, Oriented x3, No Motor/Sensory Deficits, Normal Mood/Affect Skin: Warm/Dry Lymphatic: No Adenopathy Results Lab Microbiology 11/21/16 Blood Culture - Preliminary, Resulted Escherichia Coli 11/21/16 Urine Culture - Final, Complete Escherichia Coli Assessment/Plan Assessment/Plan Assess & Plan/Chief Complaint SEPSIS ECOLI POSITIVE BLOOD CULTURES UTI -ECOLI PNEUMONIA FATIGUE WEAKNESS HYPERTENSION GERD SEPSIS WITH ECOLI POSITIVE BLOOD CULTURES - MONITOR SYMPTOMS - STOPPED CURRENT ANTIBIOTIC - STARTED ON ROCEPHIN. UTI -ECOLI - STARTED ON ROCEPHIN. PNEUMONIA - ON ROCEPHIN - MONITOR CHEST XRAYS. FATIGUE - WEAKNESS - IMPROVING - START PHYSICAL THERAPY HYPERTENSION - ON HOME MEDICATIONS. GERD - ON PPI Clinical Quality Measures DVT/VTE Risk/Contraindication: Risk Factor Score Per Nursin RFS Level Per Nursing on Admit: 3=High ALISON FERRELL MD Nov 25, 2016 09:18
[2016-11-25] MEDS ORDERED: BISACODYL 10 MG SUPP (DULCOLAX) PR NR (09:38)
[2016-11-25] MEDS: cefTRIAXone INJECTION 1,000 MG in NS (IVPB) 50 ML IV SCH (09:58)
[2016-11-25] MEDS: LEVOFLOXACIN 750 MG/150 ML IV 150 ML IV SCH (10:38)
--- NOTE | 2016-11-25 11:44 | Physical Therapy Daily Note ---
PT Daily Note-Current Subjective Patient reports she is feeling much better. Pain Numeric Pain Scale: 0-No Pain Location: No Pain Reported Mental Status Patient Orientation: Normal For Age Attachments: IV Transfers Functional [place] Measure 0=Not Assessed/NA 4=Minimal Assistance 1=Total Assistance 5=Supervision or Setup 2=Maximal Assistance 6=Modified [place] 3=Moderate Assistance 7=Complete IndependenceIRFPAI Quality Coding Scale 6 Independent with activity with or without an assistive device 5 Patient requires set up or clean up by helper. Patient completes activity by themselves 4 Supervision or touching assist (CGA). [place] provide cues , steadying assist 3 The helper provides less than half the effort to complete the activity 2 The helper provides more than half the effort to complete the activity 1 Dependent. The helper does all the effort to complete an activity 7 Patient refused to complete or attempt activity 9 The patient did not perform the activity before the current illness or injury 88 Not attempted due to Medical conditions or safety concerns Transfers (B, C, W/C) (FIM): 6 Scootin Rollin Supine to/from Sit: 6 Sit to/from Stand: 6 Gait Training Gait (FIM): 6 Distance (FIM): 3=150 ft Distance: 600' Gait Level of Assist: 6 Gait Assistive Device: FWW safe and functional with FWW; Family instructed to ambulate with family PRN in hallway Assessment Patient progressing and is feeling much better. Patient was independent PLOF, however, is requiring FWW for mobility. Patient and family have been instructed to ambulate PRN to improve LOF. PT Coordinator Of Health Services Goals [facility] Goals PT Coordinator Of Health Services Goals Time Frame: Dec 01, 2016 Transfers (B,C,W/C) (FIM): 5 Gait (FIM): 5 Distance: 300' Gait Level of Assist: 5 Gait Assistive Device: FWW PT Plan Treatment/Plan Treatment Plan: Continue Plan of Care Treatment Plan: Bed Mobility, Education, Functional Activity Tip, Functional Strength, Gait, Safety, Therapeutic Exercise, Transfers Treatment Duration: Dec 01, 2016 Frequency: 6 times per week Estimated Hrs Per Day: .25 hour per day Patient and/or Family Agrees t: Yes Time/GCodes Time In: 1115 Time Out: 1138 Total Billed Treatment Time: 23 Total Billed Treatment 1 visit FA x 2 23 min MIRI VÁZQUEZ PT Nov 25, 2016 11:44
--- NOTE | 2016-11-25 14:59 | Physical Therapy Daily Note ---
PT Daily Note-Current Subjective Patient is in bed and agrees to PT. Patient c/o fatigue. Pain Numeric Pain Scale: 0-No Pain Location: No Pain Reported Mental Status Patient Orientation: Normal For Age Attachments: IV Transfers Functional [place] Measure 0=Not Assessed/NA 4=Minimal Assistance 1=Total Assistance 5=Supervision or Setup 2=Maximal Assistance 6=Modified [place] 3=Moderate Assistance 7=Complete IndependenceIRFPAI Quality Coding Scale 6 Independent with activity with or without an assistive device 5 Patient requires set up or clean up by helper. Patient completes activity by themselves 4 Supervision or touching assist (CGA). [place] provide cues , steadying assist 3 The helper provides less than half the effort to complete the activity 2 The helper provides more than half the effort to complete the activity 1 Dependent. The helper does all the effort to complete an activity 7 Patient refused to complete or attempt activity 9 The patient did not perform the activity before the current illness or injury 88 Not attempted due to Medical conditions or safety concerns Transfers (B, C, W/C) (FIM): 6 Scootin Rollin Supine to/from Sit: 6 Sit to/from Stand: 6 Patient requested to be up in room ad wagner with IV pole. PT instructed patient to continue to call for assistance for safety concerns. Patient voices understanding. Gait Training Gait (FIM): 6 Distance (FIM): 3=150 ft Distance: 600' Gait Level of Assist: 6 Gait Assistive Device: FWW slow, steady, safe and functional Assessment Patient does fatigue with treatment, however, is encouraged with progress. PT Usp Goals Usp Goals PT Usp Goals Time Frame: Dec 01, 2016 Transfers (B,C,W/C) (FIM): 5 Gait (FIM): 5 Distance: 300' Gait Level of Assist: 5 Gait Assistive Device: FWW PT Plan Treatment/Plan Treatment Plan: Continue Plan of Care Treatment Plan: Bed Mobility, Education, Functional Activity Tip, Functional Strength, Gait, Safety, Therapeutic Exercise, Transfers Treatment Duration: Dec 01, 2016 Frequency: 6 times per week Estimated Hrs Per Day: .25 hour per day Patient and/or Family Agrees t: Yes Time/GCodes Time In: 1425 Time Out: 1440 Total Billed Treatment Time: 15 Total Billed Treatment 1 visit FA 15 min MIRI VÁZQUEZ PT Nov 25, 2016 14:59
[2016-11-25 16:31] VITALS: BP 179/79
[2016-11-25] MEDS: NS IV 1000 ML 1,000 ML IV SCH (17:02)
[2016-11-25 18:10] VITALS: BP 184/82
[2016-11-25] MEDS: traZODone 50 MG (DESYREL) TAB PO SCH (20:53)
[2016-11-25] MEDS: LORazepam 0.5 MG (ATIVAN) TABLET PO PRN (20:53)
[2016-11-25 20:56] VITALS: BP 155/77
[2016-11-26 00:58] VITALS: BP 163/70
[2016-11-26 08:18] VITALS: BP 127/68
[2016-11-26] MEDS: NS IV 1000 ML 1,000 ML IV SCH (08:49)
[2016-11-26] MEDS: cefTRIAXone INJECTION 1,000 MG in NS (IVPB) 50 ML IV SCH (08:49)
[2016-11-26] MEDS: amLODIPine 5 MG (NORVASC) TAB PO SCH ×2 (08:50→20:46)
[2016-11-26] MEDS: ENOXAPARIN 40 MG/0.4 ML (LOVENOX) SYR SC SCH (08:50)
[2016-11-26] MEDS: SENNA W/DOCUSATE (SENOKOT S) TABLET PO SCH ×2 (08:50→20:46)
[2016-11-26] MEDS: ASPIRIN E.C. 81 MG (ECOTRIN) TAB PO SCH (08:50)
[2016-11-26] MEDS: PANTOPRAZOLE 40 MG (PROTONIX) TAB PO SCH (08:50)
[2016-11-26] MEDS ORDERED: BISACODYL 10 MG SUPP (DULCOLAX) PR PRN (09:00)
--- NOTE | 2016-11-26 09:32 | Progress Note (SOAP) ---
Subjective Date Seen by Provider: Nov 26, 2016 Time Seen by Provider: 09:30 Subjective/Events-last exam PT REPORTS THAT SHE IS FEELING A LITTLE BETTER TODAY - BUT OVERALL, SHE IS FEELING POORLY. Review of Systems General: Fatigue, Malaise HEENT: No Head Aches Pulmonary: Dyspnea, Cough Cardiovascular: No: Chest Pain Gastrointestinal: No: Abdominal Pain, Nausea Genitourinary: No Dysuria Neurological: Weakness Objective Exam Vital Signs Date Time Temp Pulse Resp B/P (MAP) Pulse Ox O2 Delivery O2 Flow Rate FiO2 11/26/16 08:18 98.6 87 20 127/68 97 Room Air 11/26/16 08:01 Room Air 11/26/16 07:35 97 Room Air 11/26/16 00:58 98.6 74 20 163/70 95 Room Air 11/25/16 20:56 155/77 11/25/16 20:45 Room Air 11/25/16 19:02 Room Air 11/25/16 18:10 184/82 11/25/16 16:31 179/79 11/25/16 16:31 98.1 71 20 97 Room Air I & O 11/26/16 07:00 Intake Total 3590 ml Output Total 2600 ml Balance 990 ml Capillary Refill : Less Than 3 Seconds General Appearance: No Apparent Distress, WD/WN HEENT: PERRL/EOMI, Pharynx Normal Neck: Full Range of Motion, Supple Respiratory: Chest Non Tender, Crackles, Decreased Breath Sounds Cardiovascular: Regular Rate, Rhythm Gastrointestinal: normal bowel sounds, non tender, soft Extremity: Normal Capillary Refill, No Pedal Edema Neurologic/Psychiatric: Alert, Oriented x3, No Motor/Sensory Deficits, Normal Mood/Affect Skin: Warm/Dry Lymphatic: No Adenopathy Results Lab Microbiology 11/21/16 Blood Culture - Preliminary, Resulted Escherichia Coli 11/21/16 Urine Culture - Final, Complete Escherichia Coli Assessment/Plan Assessment/Plan Assess & Plan/Chief Complaint SEPSIS ECOLI POSITIVE BLOOD CULTURES UTI -ECOLI PNEUMONIA FATIGUE WEAKNESS HYPERTENSION GERD SEPSIS WITH ECOLI POSITIVE BLOOD CULTURES - MONITOR SYMPTOMS - RESTARTED MEDICATIONS FROM ADMISSION. UTI -ECOLI - STARTED ON ROCEPHIN. PNEUMONIA - ON ROCEPHIN - MONITOR CHEST XRAYS. FATIGUE - WEAKNESS - IMPROVING - START PHYSICAL THERAPY HYPERTENSION - ON HOME MEDICATIONS. GERD - ON PPI Clinical Quality Measures DVT/VTE Risk/Contraindication: Risk Factor Score Per Nursin RFS Level Per Nursing on Admit: 3=High ALISON FERRELL MD Nov 26, 2016 09:32
[2016-11-26] MEDS ORDERED: NS 100 ML (IVPB) BAG IV ONE (10:45)
[2016-11-26] MEDS ORDERED: CATHETER FLUSH 10 ML SYR IV PRN (10:45)
--- NOTE | 2016-11-26 10:55 | Physical Therapy Daily Note ---
PT Daily Note-Current Subjective Pt at EOB upon arrival. Pt agrees to ambulation since she had already rested this morning and seen the negra zhu. Pain Location: No Pain Reported Mental Status Patient Orientation: Person, Place, Time, Situation Attachments: IV Transfers Functional [place] Measure 0=Not Assessed/NA 4=Minimal Assistance 1=Total Assistance 5=Supervision or Setup 2=Maximal Assistance 6=Modified [place] 3=Moderate Assistance 7=Complete IndependenceIRFPAI Quality Coding Scale 6 Independent with activity with or without an assistive device 5 Patient requires set up or clean up by helper. Patient completes activity by themselves 4 Supervision or touching assist (CGA). [place] provide cues , steadying assist 3 The helper provides less than half the effort to complete the activity 2 The helper provides more than half the effort to complete the activity 1 Dependent. The helper does all the effort to complete an activity 7 Patient refused to complete or attempt activity 9 The patient did not perform the activity before the current illness or injury 88 Not attempted due to Medical conditions or safety concerns Scootin Rollin Supine to/from Sit: 6 Sit to/from Stand: 6 Bed to/from Chair: 6 Weight Bearing Weight Bearing Restriction: Full Weight Bearing Location Restriction: LE Bilateral Gait Training Distance: 600' Gait Level of Assist: 5 Gait Persons Needed: 1 Gait Assistive Device: FWW Pt uses FWW for longer walks but no AD when walking to restroom. Pt is steady and walks with normalized gait pattern. SAMPLE PREPARATION SUPERVISOR assisted with managing IV pole. Treatments Pt transferred from Supine in bed to EOB to Standing at Mod I at using FWW. Pt ambulated in hallway using FWW at SBA. Pt returned to room to rest in chair at end of walk. Pt is left visiting with family with all needs met at end of tx. Assessment Current Status: Good Progress Pt continues to get stronger and have better activity tolerance. PT Mcfp Goals Mcfp Goals PT Mcfp Goals Time Frame: Dec 01, 2016 Transfers (B,C,W/C) (FIM): 5 Gait (FIM): 5 Distance: 300' Gait Level of Assist: 5 Gait Assistive Device: FWW PT Plan Problem List Problem List: Activity Tolerance Treatment/Plan Treatment Plan: Continue Plan of Care Treatment Plan: Bed Mobility, Education, Functional Activity Tip, Functional Strength, Gait, Safety, Therapeutic Exercise, Transfers Treatment Duration: Dec 01, 2016 Frequency: 6 times per week Estimated Hrs Per Day: .25 hour per day Patient and/or Family Agrees t: Yes Safety Risks/Education Patient Education: Gait Training, Transfer Techniques, Correct Positioning, Safety Issues Teaching Recipient: Patient, Family Teaching Methods: Discussion Response to Teaching: Verbalize Understanding Time/GCodes Time In: 1010 Time Out: 1025 Total Billed Treatment Time: 15 Total Billed Treatment visit, GT (15m) MORAIMA DOWNS SAMPLE PREPARATION SUPERVISOR Nov 26, 2016 10:55
[2016-11-26] MEDS: IOHEXOL 350 MG/ML 100 ML (OMNIPAQUE 350) VIAL IV ONE ×2 (11:00→11:32)
[2016-11-26] MEDS: NS 100 ML (IVPB) BAG IV ONE ×2 (11:00→12:07)
[2016-11-26] MEDS ORDERED: IOHEXOL 350 MG/ML 100 ML (OMNIPAQUE 350) VIAL IV ONE (11:27)
--- NOTE | 2016-11-26 12:11 | Diagnostic Imaging Report ---
PROCEDURE: CT abdomen and pelvis with and without contrast. TECHNIQUE: Precontrast acquisitions were acquired through the abdomen and pelvis. Multiple contiguous axial images were obtained through the abdomen and pelvis after the administration of intravenous contrast. INDICATION: Abdominal pain. Left pyelonephritis. 100 mL of Omnipaque 350 is administered intravenously. COMPARISON: 11/21/2016. FINDINGS: There is focal consolidation in the medial aspect of the right lung base anteriorly likely atelectasis related. The heart size is mildly enlarged. There is small pericardial effusion. The liver, the spleen, the adrenals, and the pancreas appear unremarkable. The CBD is at the upper limits of normal in caliber measuring 10 mm, probably related to prior cholecystectomy with no definite obstruction seen. The left kidney demonstrates slight thickening in the lining of the renal pelvis similar to 11/21/2016 exam. There is also slight heterogeneity and enhancement of the renal parenchyma in the upper and lower poles. This is not associated with significant inflammatory changes around the left kidney. The findings are likely related to mild pyelonephritis. The prior study demonstrated slight perinephric stranding however. The change could potentially be related to antibiotic treatment. The unenhanced phase demonstrates no urinary tract stone. The urinary bladder appears unremarkable. No urinary obstruction is seen. The abdominal aorta is normal in caliber. No para-aortic significantly enlarged lymph nodes noted. There is extensive diverticulosis. No evidence of diverticulitis. No significant free fluid or fluid collection in the abdomen or pelvis is seen. There is a small fat-containing umbilical hernia and slightly larger infraumbilical fat-containing hernia. The osseous structures demonstrate degenerative changes in the lumbar spine and degenerative changes of the hip joints. IMPRESSION: 1. There is persistent thickening in the urothelium of the left renal pelvis and minimal heterogenous enhancement in the left kidney. The perinephric stranding seen previously has improved. The findings are compatible with left pyelonephritis. CT followup in 2 months is suggested to ensure complete resolution. 2. Fat-containing umbilical and infraumbilical hernias. 3. Extensive colonic diverticulosis. Dictated by: Dictated on workstation # [id number]
--- NOTE | 2016-11-26 15:16 | Physical Therapy Daily Note ---
PT Daily Note-Current Subjective Pt had just gone to the restroom and was asleep Supine in bed upon arrival. Pt agreed to PT but asked if it could be Supine Ex in bed due to feeling fatigued and wanted to rest after tx. Pain Location: No Pain Reported Mental Status Patient Orientation: Person, Place, Situation Attachments: [place] Catheter, IV Transfers Functional [place] Measure 0=Not Assessed/NA 4=Minimal Assistance 1=Total Assistance 5=Supervision or Setup 2=Maximal Assistance 6=Modified [place] 3=Moderate Assistance 7=Complete IndependenceIRFPAI Quality Coding Scale 6 Independent with activity with or without an assistive device 5 Patient requires set up or clean up by helper. Patient completes activity by themselves 4 Supervision or touching assist (CGA). [place] provide cues , steadying assist 3 The helper provides less than half the effort to complete the activity 2 The helper provides more than half the effort to complete the activity 1 Dependent. The helper does all the effort to complete an activity 7 Patient refused to complete or attempt activity 9 The patient did not perform the activity before the current illness or injury 88 Not attempted due to Medical conditions or safety concerns Exercises Supine Ex: Ankle pumps, Quad Set, Heel Slides, Straight leg raise, Hip abd/add Supine Reps: 15 Treatments Pt completed Supine Ex in bed for tx. Pt took a couple of short rest breaks during tx. Pt was resting Supine in bed trying to sleep at end of tx with all needs met. Assessment Current Status: Fair Progress Pt was fatigued this afternoon but was able to complete all Supine Ex that POWER SCREWDRIVER OPERATOR asked to complete. PT Shelter Goals Yard Worker Goals PT Shelter Goals Time Frame: Dec 01, 2016 Transfers (B,C,W/C) (FIM): 5 Gait (FIM): 5 Distance: 300' Gait Level of Assist: 5 Gait Assistive Device: FWW PT Plan Problem List Problem List: Activity Tolerance, Functional Strength Treatment/Plan Treatment Plan: Continue Plan of Care Treatment Plan: Bed Mobility, Education, Functional Activity Tip, Functional Strength, Gait, Safety, Therapeutic Exercise, Transfers Treatment Duration: Dec 01, 2016 Frequency: 6 times per week Estimated Hrs Per Day: .25 hour per day Patient and/or Family Agrees t: Yes Safety Risks/Education Patient Education: Transfer Techniques, Correct Positioning, Safety Issues Teaching Recipient: Patient Teaching Methods: Discussion Response to Teaching: Verbalize Understanding Time/GCodes Time In: 1415 Time Out: 1440 Total Billed Treatment Time: 25 Total Billed Treatment visit, EX x2 (25m) MORAIMA DOWNS POWER SCREWDRIVER OPERATOR Nov 26, 2016 15:16
[2016-11-26 16:23] VITALS: BP 161/73
[2016-11-26] MEDS: LORazepam 0.5 MG (ATIVAN) TABLET PO PRN (20:46)
[2016-11-26] MEDS: traZODone 50 MG (DESYREL) TAB PO SCH (20:46)
[2016-11-26] MEDS ORDERED: RT-ALBUTEROL SULF 2.5 MG/3 ML PRE-MIX VIAL ONE (23:42)
[2016-11-26] MEDS ORDERED: RT-IPRATROPIUM (ATROVENT) 0.5MG/2.5ML AMP IH ONE (23:42)
[2016-11-27] VITALS: BP 119/58
[2016-11-27] MEDS: NS IV 1000 ML 1,000 ML IV SCH (03:38)
[2016-11-27 08:50] VITALS: BP 145/68
[2016-11-27] MEDS: amLODIPine 5 MG (NORVASC) TAB PO SCH (09:08)
[2016-11-27] MEDS: ASPIRIN E.C. 81 MG (ECOTRIN) TAB PO SCH (09:08)
[2016-11-27] MEDS: LEVOFLOXACIN 750 MG/150 ML IV 150 ML IV SCH (09:08)
[2016-11-27] MEDS: SENNA W/DOCUSATE (SENOKOT S) TABLET PO SCH (09:08)
[2016-11-27] MEDS: cefTRIAXone INJECTION 1,000 MG in NS (IVPB) 50 ML IV SCH (09:08)
[2016-11-27] MEDS: PANTOPRAZOLE 40 MG (PROTONIX) TAB PO SCH (09:08)
[2016-11-27] MEDS: ENOXAPARIN 40 MG/0.4 ML (LOVENOX) SYR SC SCH (09:11)
--- NOTE | 2016-11-27 09:22 | Discharge Summary ---
Diagnosis/Chief Complaint Date of Admission Nov 21, 2016 at 20:32 Date of Discharge Discharge Date: Nov 27, 2016 Discharge Time: 09:30 Admission Diagnosis Admission Diagnosis pyelonephritis. infection. Pneumonia. Weakness. Not eating. Patient lives alone. infection failure as outpatientarea Hypertension Discharge Diagnosis SEPSIS ECOLI POSITIVE BLOOD CULTURES UTI -ECOLI PNEUMONIA FATIGUE WEAKNESS HYPERTENSION GERD Reason Hospital Visit 86-year-old female patient presents to the emergency department with complaints of low-grade fever and back pain. Patient was treated in the emergency department 2 weeks ago for urinary tract infection with Keflex. States she never was 100 percent better. Reports poor appetite, fatigue, and occasionally short of breath. Patient does complain of lower abdominal discomfort radiating around both flanks into the back. Discharge Summary Discharge Physical Examination Allergies: Coded Allergies: No Known Drug Allergies (Verified , 07/16/16) Vitals & I&Os General Appearance: Alert, Oriented X3, Cooperative HEENT: Atraumatic Respiratory: Other (CRACKLES IN BASES) Cardiovascular: Regular Rate Abdominal: Normal Bowel Sounds, Soft, Other (TTP LOWER LEFT AND RIGHT QUADRANTS ) Extremities: No Clubbing, No Cyanosis Skin: No Rashes, No Breakdown Neuro: Normal Speech, Cranial Nerves 3-12 NL Psych/Mental Status: Mental Status NL, Mood NL Hospital Course SEPSIS ECOLI POSITIVE BLOOD CULTURES UTI -ECOLI PNEUMONIA FATIGUE WEAKNESS HYPERTENSION GERD SEPSIS WITH ECOLI POSITIVE BLOOD CULTURES - MONITOR SYMPTOMS - RESTARTED MEDICATIONS FROM ADMISSION. UTI -ECOLI - STARTED ON ROCEPHIN. PNEUMONIA - ON ROCEPHIN - MONITOR CHEST XRAYS. FATIGUE - WEAKNESS - IMPROVING - START PHYSICAL THERAPY HYPERTENSION - ON HOME MEDICATIONS. GERD - ON PPI DISCHARGE TO SWING BED STATUS Discharge Condition at discharge SLOWLY IMPROVING Instructions to patient/family Please see electonic discharge instructions given to patient. Discharge Medications Reviewed and agree with Discharge Medication list on patient's Discharge Instruction sheet Clinical Quality Measures DVT/VTE Risk/Contraindication: Risk Factor Score Per Nursin RFS Level Per Nursing on Admit: 3=High ALISON FERRELL MD Nov 27, 2016 09:22
[2016-12-01] MEDS ORDERED: OXYB5TAB9 PO ×2 (09:14)
[2016-12-01] MEDS ORDERED: MICO90PO TOP ×2 (09:14)
== END 2016-11-27 09:27 | disposition swing bed (61) | DRG 871 ==
LOC: EDUNIT# 17:41 → ER 17:42 → 4TH 20:32 → ENPENDDIS 11-27 09:30
PROVIDERS: ADMIT Family Medicine; ATTEND Family Medicine
DX: A41.51 Sepsis due to Escherichia coli [E. coli] (principal); N39.0 Urinary tract infection, site not specified; J18.9 Pneumonia, unspecified organism; I10 Essential (primary) hypertension; K21.9 Gastro-esophageal reflux disease without esophagitis; H91.93 Unspecified hearing loss, bilateral; R53.83 Other fatigue; Z86.010 Personal history of colon polyps; Z87.19 Personal history of other diseases of the digestive system
CPT/HCPCS: 36415; 71010; 71020; 72100; 74177; 74178; 80048; 80053; 81000; 83605; 85025; 85027; 86141; 87040; 87088; 87186; 94640; 94664; 94760; 96361; 96365; 96375

== ENCOUNTER 2016-11-26 11:50 | Inpatient (IN) | payer MEDICARE ==
[~2016-11-26] VITALS: Ht 165.1 cm; Wt 68.0 kg
[~2016-11-26 11:50] MED LIST changes: +FOLI-74 PO; +IOHEXOL 350 MG/ML 100 ML (OMNIPAQUE 350) VIAL IV ONE; +NS 100 ML (IVPB) BAG IV ONE; +PANT40TA3 PO; +ZOLP5TAB7 PO
[2016-11-27] MEDS ORDERED: ACETAMINOPHEN 500 MG TAB (TYLENOL) PO PRN (09:45)
[2016-11-27] MEDS ORDERED: LEVOFLOXACIN 750 MG/150 ML IV 150 ML IV SCH (09:45)
[2016-11-27] MEDS ORDERED: ONDANSETRON 4 MG/2 ML (SDV) Z0FRAN IV PRN (09:45)
[2016-11-27] MEDS ORDERED: CATHETER FLUSH 10 ML SYR IV PRN (09:45)
[2016-11-27] MEDS ORDERED: ENOXAPARIN 40 MG/0.4 ML (LOVENOX) SYR SC SCH (09:45)
[2016-11-27] MEDS ORDERED: PROMETHAZINE INJ 25 MG/ML (PHENERGAN) AMP IV PRN (09:45)
[2016-11-27] MEDS ORDERED: BISACODYL 10 MG SUPP (DULCOLAX) PR PRN (09:45)
[2016-11-27] MEDS ORDERED: RT-ALBUTEROL/IPRATROPIUM 3 ML (DUONEB) VIAL INH PRN (09:45)
[2016-11-27] MEDS: NS IV 1000 ML 1,000 ML IV SCH ×2 (12:23→21:02)
--- NOTE | 2016-11-27 13:04 | Physical Therapy Evaluation ---
PT Evaluation-General Medical Diagnosis Admission Date Nov 27, 2016 at 09:28 Medical Diagnosis: sepsis/UTI/pyelonephritis Onset Date: Nov 21, 2016 Therapy Diagnosis Therapy Diagnosis: debility Height/Weight Height (Feet): 5 Height (Inches): 5.00 Weight (Pounds): 150 Weight (Ounces): 0.0 Precautions Precautions/Isolations: Standard Precautions Referral Physician: Marlene Reason for Referral: Evaluation/Treatment Medical History Pertinent Medical History: GERD, HTN Additional Medical History reoccurring UTI Current History SWB status Reviewed History: Yes Social History Home: Single Level Current Living Status: Children Prior/Core FIM Prior Level of Function Functional [place] Measure 0=Not Assessed/NA 4=Minimal Assistance 1=Total Assistance 5=Supervision or Setup 2=Maximal Assistance 6=Modified [place] 3=Moderate Assistance 7=Complete [place] Bed Mobility: 7 Transfers (B,C,W/C) (FIM): 7 Gait: 7 PT Evaluation-Current Subjective Patient states she is much better and agrees to PT. Pain Numeric Pain Scale: 0-No Pain Location: No Pain Reported Objective Patient Orientation: Normal For Age Problem Solving: Good Attachments: [place] Catheter, IV ROM/Strength ROM Lower Extremities bilateral LE WNL Strenght Lower Extremities bilateral LE WNL Integumentary/Posture Integumentary refer to nursing notes Bowel Incontinence: No Bladder Incontinence: [place] Cath Posture WNL Neuromuscular (Tone, Coordination, Reflexes) grossly intact Sensory Vision: Functional Hearing: Hearing Aid/Aides Sensation Right Lower Extremit: Intact Sensation Left Lower Extremity: Intact Transfers Functional [place] Measure 0=Not Assessed/NA 4=Minimal Assistance 1=Total Assistance 5=Supervision or Setup 2=Maximal Assistance 6=Modified [place] 3=Moderate Assistance 7=Complete [place] Transfers (B, C, W/C) (FIM): 6 Scootin Rollin Supine to/from Sit: 6 Sit to/from Stand: 6 Sit to Lying (QC): 5 Lying to Sitting/Side of Bed(Q: 5 Sit to Stand (QC): 5 Chair/Qif-cj-Lkkpf Xfer(QC): 5 Gait Does the Patient Walk?: Yes Mode of Locomotion: Walk Anticipated Mode of Locomotion: Walk Gait (FIM): 6 Distance (FIM): 3=150 ft Distance: 800' Walk 50 ft with 2 Turns(QC): 5 Walk 150 ft (QC): 5 Gait Level of Assist: 6 Gait Assistive Device: FWW Comments/Gait Description safe and functional with FWW; patient ambulates with family PRN during day Balance Sitting Static: Normal Sitting Dynamic: Normal Standing Static: Normal Standing Dynamic: Normal Treatment Patient performed functional mobility by ambulating with FWW modified independent x 800' with safe and functional gait sequence. PT instructed family to continue to ambulate with family PRN in hallway and all are very agreeable. Assessment/Needs 86 y.o. female, will benefit from short term skilled PT to address functional strength and mobility to improve current LOF and to safely return to home, alone , at independent LOF. Rehab Potential: Good PT Detention Goals Restoration [place] Goals PT Detention Goals Time Frame: Dec 05, 2016 Transfers (B,C,W/C) (FIM): 7 Sit to Lying (QC): 6 Lying-Sitting on Side/Bed(QC): 6 Sit to Stand (QC): 6 Rollin Chair/Xis-uj-Dhgov Xfer(QC): 6 Does the Patient Walk: Yes Gait (FIM): 7 Gait distance (FIM): 3=150 ft Walk 50ft with 2 Turns (QC): 6 Walk 150 ft (QC): 6 Gait Level of Assist: 7 Gait Assistive Device: None PT Plan Problem List Problem List: Activity Tolerance Treatment/Plan Treatment Plan: Continue Plan of Care Treatment Plan: Education, Functional Activity Tip, Functional Strength, Gait , Safety, Therapeutic Exercise, Transfers Treatment Duration: Dec 05, 2016 Frequency: 6 times per week Estimated Hrs Per Day: .25 hour per day Patient and/or Family Agrees t: Yes Discharge Recommendations Therapy D/C Recommendations: Home Independently Time/GCodes Time In: 1115 Time Out: 1140 Total Billed Treatment Time: 25 Total Billed Treatment 1 visit EVLowC 10 min FA 15 min MIRI VÁZQUEZ PT Nov 27, 2016 13:04
--- NOTE | 2016-11-27 14:24 | Occupational Therapy Eval ---
OT Evaluation-General/PLF Medical Diagnosis Admission Date Nov 27, 2016 at 09:28 Medical Diagnosis: sepsis/UTI/pyelonephritis Onset Date: Nov 21, 2016 Therapy Diagnosis Therapy Diagnosis: weakness, decr self care, decr activity tolerance Height/Weight Height (Feet): 5 Height (Inches): 5.00 Weight (Pounds): 150 Weight (Ounces): 0.0 Precautions Precautions/Isolations: Standard Precautions Referral Physician: Marlene Referral Reason: Evaluation/Treatment Medical History Pertinent Medical History: GERD, HTN Additional Medical History Rectal bleeding, diverticulosis, polyps. Hard of hearing/ Pt reported occasional R shoulder discomfort Current History Admitted with chills, low back pain, fever, frequent urination. Recent UTI. Now with sepsis, pyelonephritis, bilat pneumonia, infection Reviewed History: Yes Social History Home: Single Level Current Living Status: Alone ADL-Prior Level of Function ADL PLOF Comments Pt reported that she has been able to manage her basic ADLs, her home chores ( laundry, cooking, cleaning) and occasionally mows the lawn. She still drives. She reported she has primarily been a [id number] mom and grandma. DME/Equipment Comments Unknown DME Drive Self: Yes OT Current Status Subjective Pt seen inroom, up in recliner, agreeable to OT. Reported pain 0/10. Appearance Alert, cooperative, oriented Mental Status/Objective Attachments: [place] Catheter, IV Current Glasses/Contacts: Yes Hearing Aids: Yes Dentures/Partials: No Hand Dominance: Right Upper Extremity ROM Grossly WFL bilat Upper Extremity Strength Grossly 4/5 bilat Pt reported she has been ill for several weeks and has decreased activity tolerance ADL-Treatment ADL-Current PT evaluation shows that pt is able to transfer with modified independence and walked SBA in the halls. Functional [place] Measure 0=Not Assessed/NA 4=Minimal Assistance 1=Total Assistance 5=Supervision or Setup 2=Maximal Assistance 6=Modified [place] 3=Moderate Assistance 7=Complete IndependenceIRFPAI Quality Coding Scale 6 Independent with activity with or without an assistive device 5 Patient requires set up or clean up by helper. Patient completes activity by themselves 4 Supervision or touching assist (CGA). [place] provide cues , steadying assist 3 The helper provides less than half the effort to complete the activity 2 The helper provides more than half the effort to complete the activity 1 Dependent. The helper does all the effort to complete an activity 7 Patient refused to complete or attempt activity 9 The patient did not perform the activity before the current illness or injury 88 Not attempted due to Medical conditions or safety concerns Eating (FIM): 7 (Pt report. No problems cutting food, opening packages, feeding herself) Eating (QC): 6 (Pt report) Grooming (FIM): 5 (Pt reported that she brushed her teeth this morning but someone walks with her to the bathroom to manage IVs. She showered with her daughter this morning and her daughter washed her hair) Oral Hygiene (QC): 5 (Setup, to bring along IV. Nursing reported pt walks to and from bathroom without assistive device and has good balance) Bathing (FIM): 5 (Pt reported her daughter helped her with her shower this morning. She washed her back and her hair. Shower bench, grab bars, hand held shower) Toileting (FIM): 5 (Nursing reported pt can manage clothing and hygiene and jsut has help with IV.) Toileting Hygiene (QC): 5 (Setup to bring along IV pole, per nursing) Education OT Patient Education: Progress toward Goal/Update tx plan (tx plan), Purpose of tx/functional activities, Rehab process Teaching Recipient: Patient Teaching Methods: Discussion Response to Teaching: Verbalize Understanding OT Biophysics Teacher Goals Biophysics Teacher Goals Time Frame: Dec 05, 2016 Eating (FIM): 7 Eating (QC): 6 Groomin Oral Hygiene (QC): 6 Upper Body Dressing(FIM): 6 Lower Body Dressing(FIM): 6 Toileting(FIM): 6 Toileting Hygiene (QC): 6 Toilet/Commode Transfer(FIM): 6 Toilet/Commode Transfer (QC): 6 Pt will be independent with home exercise program to strengthen arms to help with activity tolerance and ADLs Additional Goals: 2-Verbalize Understanding, 3-ImproveStrength/Tip 1=Demonstrate adherence to instructed precautions during ADL tasks. 2=Patient will verbalize/demonstrate understanding of assistive devices/ modifications for ADL. 3=Patient will improve strength/tolerance for activity to enable patient to perform ADL's. OT Education/Plan Problem List/Assessment Assessment: Decreased Activ Tolerance, Decreased UE Strength Pt would benefit from skilled OT to increase her independence in basic self care to allow her to safely return home to live by herself Discharge Recommendations Plan/Recommendations: Continue POC Therapy D/C Recommendations: Home w/ Family Support Treatment Plan/Plan of Care Treatment,Training & Education: Yes Patient would benefit from OT for education, treatment and training to promote independence in ADL's, mobility, safety and/or upper extremity function for ADL' s. Plan of Care: ADL Retraining, UE Funct Exercise/Act Treatment Duration: Dec 05, 2016 Frequency: Daily (5x a week) Estimated Hrs Per Day: .25 hour per day Agreement: Yes Rehab Potential: Good Time/GCodes Start Time: 14:00 Stop Time: 14:17 Total Time Billed (hr/min): 17 Billed Treatment Time visit, 17 minutes evaluation low intensity DEBBIE SIMMONS OT Nov 27, 2016 14:24
[2016-11-27 17:14] VITALS: BP 152/61
[2016-11-27] MEDS: LORazepam 0.5 MG (ATIVAN) TABLET PO PRN (20:58)
[2016-11-27] MEDS: SENNA W/DOCUSATE (SENOKOT S) TABLET PO SCH (20:58)
[2016-11-27] MEDS: amLODIPine 5 MG (NORVASC) TAB PO SCH (20:58)
[2016-11-27] MEDS: OXYBUTYNIN (DITROPAN) 5 MG TAB PO SCH (20:58)
[2016-11-27] MEDS: traZODone 50 MG (DESYREL) TAB PO SCH (21:02)
[2016-11-28 06:02] VITALS: BP 145/63
[2016-11-28] MEDS: PANTOPRAZOLE 40 MG (PROTONIX) TAB PO SCH (06:50)
--- NOTE | 2016-11-28 09:04 | Physical Therapy Daily Note ---
PT Daily Note-Current Subjective States she is so much better and has been getting up and down with her daughters assist and feels very confident, no c/o. Daughter and pt. states they have done their own exercise routine indep this AM Pain Numeric Pain Scale: 0-No Pain Mental Status Patient Orientation: Normal For Age Transfers Functional [place] Measure 0=Not Assessed/NA 4=Minimal Assistance 1=Total Assistance 5=Supervision or Setup 2=Maximal Assistance 6=Modified [place] 3=Moderate Assistance 7=Complete IndependenceIRFPAI Quality Coding Scale 6 Independent with activity with or without an assistive device 5 Patient requires set up or clean up by helper. Patient completes activity by themselves 4 Supervision or touching assist (CGA). [place] provide cues , steadying assist 3 The helper provides less than half the effort to complete the activity 2 The helper provides more than half the effort to complete the activity 1 Dependent. The helper does all the effort to complete an activity 7 Patient refused to complete or attempt activity 9 The patient did not perform the activity before the current illness or injury 88 Not attempted due to Medical conditions or safety concerns Transfers (B, C, W/C) (FIM): 6 all TRFs [place] Gait Training Gait (FIM): 6 Gait Assistive Device: FWW 400ft, back, side steps as well,many turns, no LOB, 400ft Exercises Seated Therapy Exercises: Ankle pumps, Sit to stand, Long arc quads, Hip flexion Seated Reps: 15 Assessment Current Status: Excellent Progress PT Computer Forensic Specialist Goals Usp Goals PT Usp Goals Time Frame: Dec 05, 2016 Transfers (B,C,W/C) (FIM): 7 Gait (FIM): 7 Gait distance (FIM): 3=150 ft Gait Level of Assist: 7 Gait Assistive Device: None PT Plan Treatment/Plan Treatment Plan: Continue Plan of Care Treatment Plan: Education, Functional Activity Tip, Functional Strength, Gait , Safety, Therapeutic Exercise, Transfers Treatment Duration: Dec 05, 2016 Frequency: 6 times per week Estimated Hrs Per Day: .25 hour per day Patient and/or Family Agrees t: Yes Safety Risks/Education Patient Education: Gait Training, Transfer Techniques, Safety Issues Teaching Recipient: Patient Teaching Methods: Demonstration, Discussion Response to Teaching: Verbalize Understanding, Return Demonstration Time/GCodes Time In: 845 Time Out: 900 Total Billed Treatment Time: 15 Total Billed Treatment 1,GT15m G Codes Necessary: No RUPA FLORES PROCESS DEVELOPMENT CHEMIST Nov 28, 2016 09:04
[2016-11-28] MEDS: ASPIRIN E.C. 81 MG (ECOTRIN) TAB PO SCH (09:11)
[2016-11-28] MEDS: SENNA W/DOCUSATE (SENOKOT S) TABLET PO SCH ×2 (09:11→21:05)
[2016-11-28] MEDS: OXYBUTYNIN (DITROPAN) 5 MG TAB PO SCH ×2 (09:11→21:05)
--- NOTE | 2016-11-28 09:11 | Progress Note (SOAP) ---
Subjective Date Seen by Provider: Nov 28, 2016 Time Seen by Provider: 09:11 Subjective/Events-last exam PT WAS AMBULATING IN THE [place] WITH PHYSICAL THERAPY. SHE REPORTS THAT SHE IS NOT HAVING ANY ABDOMINAL PAIN, NO CHEST PAIN, NO SHORTNESS OF BREATH. SHE REPORTS THAT SHE IS FEELING MUCH BETTER TODAY COMPARED TO THE PAST TWO DAYS. Review of Systems General: Fatigue HEENT: No Head Aches Pulmonary: No Dyspnea, No Cough Cardiovascular: No: Chest Pain, Palpitations Gastrointestinal: No: Abdominal Pain, Nausea Genitourinary: No Dysuria, Other (BAKER IN PLACE) Neurological: Weakness, No: Confusion Objective Exam Vital Signs Date Time Temp Pulse Resp B/P (MAP) Pulse Ox O2 Delivery O2 Flow Rate FiO2 11/28/16 07:11 96 Room Air 11/28/16 06:02 99.4 63 20 145/63 95 Room Air 11/27/16 21:00 Room Air 11/27/16 19:40 Room Air 11/27/16 17:14 98.4 72 18 152/61 97 Room Air 11/27/16 15:05 97 I & O 11/28/16 07:00 Intake Total 1160 ml Output Total 4450 ml Balance -3290 ml Capillary Refill : General Appearance: No Apparent Distress, WD/WN HEENT: PERRL/EOMI, Pharynx Normal Neck: Full Range of Motion, Supple Respiratory: Chest Non Tender, Lungs Clear, Normal Breath Sounds Cardiovascular: Regular Rate, Rhythm, No Edema Gastrointestinal: normal bowel sounds, non tender, soft Extremity: Normal Capillary Refill, No Pedal Edema Neurologic/Psychiatric: Alert, Oriented x3, No Motor/Sensory Deficits Skin: Warm/Dry Lymphatic: No Adenopathy Assessment/Plan Assessment/Plan Assess & Plan/Chief Complaint SEPSIS ECOLI POSITIVE BLOOD CULTURES UTI -ECOLI PNEUMONIA FATIGUE WEAKNESS HYPERTENSION GERD SEPSIS WITH ECOLI POSITIVE BLOOD CULTURES - MONITOR SYMPTOMS - STARTED ON ROCEPHIN AND LEVAQUIN ADDED - WITH IMPROVED SYMPTOMS.. UTI -ECOLI - STARTED ON ROCEPHIN. PNEUMONIA - ON ROCEPHIN - MONITOR CHEST XRAYS. FATIGUE - WEAKNESS - IMPROVING - CONTINUE WITH TWICE A DAY PHYSICAL THERAPY HYPERTENSION - ON HOME MEDICATIONS. GERD - ON PPI ALISON FERRELL MD Nov 28, 2016 09:11
[2016-11-28] MEDS: cefTRIAXone INJECTION 1,000 MG in NS (IVPB) 50 ML IV SCH (09:12)
[2016-11-28] MEDS: ENOXAPARIN 40 MG/0.4 ML (LOVENOX) SYR SC SCH (09:12)
[2016-11-28] MEDS: amLODIPine 5 MG (NORVASC) TAB PO SCH ×2 (09:12→21:05)
--- NOTE | 2016-11-28 09:22 | Occupational Ther Daily Note ---
OT Current Status-Daily Note Subjective Pt sitting EOB, agrees to treatment. Pt states she is feeling better and has no c/o pain. Mental Status/Objective Functional [place] Measure 0=Not Assessed/NA 4=Minimal Assistance 1=Total Assistance 5=Supervision or Setup 2=Maximal Assistance 6=Modified [place] 3=Moderate Assistance 7=Complete [place] ADL-Treatment Pt states she has been completing ADLs in room, but has assist with IV pole. Functional [place] Measure 0=Not Assessed/NA 4=Minimal Assistance 1=Total Assistance 5=Supervision or Setup 2=Maximal Assistance 6=Modified [place] 3=Moderate Assistance 7=Complete IndependenceIRFPAI Quality Coding Scale 6 Independent with activity with or without an assistive device 5 Patient requires set up or clean up by helper. Patient completes activity by themselves 4 Supervision or touching assist (CGA). [place] provide cues , steadying assist 3 The helper provides less than half the effort to complete the activity 2 The helper provides more than half the effort to complete the activity 1 Dependent. The helper does all the effort to complete an activity 7 Patient refused to complete or attempt activity 9 The patient did not perform the activity before the current illness or injury 88 Not attempted due to Medical conditions or safety concerns Other Treatment Pt instructed in bilateral UE exercises to promote increased strength needed for ADLs and transfers. Pt performed shoulder flexion, abduction, biceps curls, and triceps extension exercises x15 reps with minimal resistance (yellow) theraband. Rest breaks between exercises. Occasional cues required for proper exercise technique. Pt sitting EOB with needs met and daughter present after session. Education OT Patient Education: Exercise program Teaching Recipient: Patient Teaching Methods: Demonstration, Discussion Response to Teaching: Return Demonstration OT Short Term Goals Short Term Goals 1=Demonstrate adherence to instructed precautions during ADL tasks. 2=Patient will verbalize/demonstrate understanding of assistive devices/ modifications for ADL. 3=Patient will improve strength/tolerance for activity to enable patient to perform ADL's. OT [facility] Goals Leaflet Distributor Goals Time Frame: Dec 05, 2016 Eating (FIM): 7 Eating (QC): 6 Groomin Oral Hygiene (QC): 6 Upper Body Dressing(FIM): 6 Lower Body Dressing(FIM): 6 Toileting(FIM): 6 Toileting Hygiene (QC): 6 Toilet/Commode Transfer(FIM): 6 Toilet/Commode Transfer (QC): 6 Pt will be independent with home exercise program to strengthen arms to help with activity tolerance and ADLs Additional Goals: 2-Verbalize Understanding, 3-ImproveStrength/Tip 1=Demonstrate adherence to instructed precautions during ADL tasks. 2=Patient will verbalize/demonstrate understanding of assistive devices/ modifications for ADL. 3=Patient will improve strength/tolerance for activity to enable patient to perform ADL's. OT Education/Plan Problem List/Assessment Pt would benefit from skilled OT to increase her independence in basic self care to allow her to safely return home to live by herself Discharge Recommendations Plan/Recommendations: Continue POC Treatment Plan/Plan of Care Patient would benefit from OT for education, treatment and training to promote independence in ADL's, mobility, safety and/or upper extremity function for ADL' s. Plan of Care: ADL Retraining, UE Funct Exercise/Act Treatment Duration: Dec 05, 2016 Frequency: Daily (5x a week) Estimated Hrs Per Day: .25 hour per day Agreement: Yes Rehab Potential: Good Time/GCodes Start Time: 08:20 Stop Time: 08:40 Total Time Billed (hr/min): 20 Billed Treatment Time 1 visit, EX(20minutes) ELIZABETH PERALTA OT Nov 28, 2016 09:22
[2016-11-28] MEDS: NS IV 1000 ML 1,000 ML IV SCH (14:17)
[2016-11-28 18:00] VITALS: BP 132/60
[2016-11-28] MEDS: traZODone 50 MG (DESYREL) TAB PO SCH (21:04)
[2016-11-28] MEDS: LORazepam 0.5 MG (ATIVAN) TABLET PO PRN (21:05)
[2016-11-29 05:18] LABS: MEAN PLATELET VOLUME 8.8 FL (7.4-10.4); RED BLOOD COUNT 4.32 10^6/uL (4.35-5.85); RED CELL DISTRIBUTION WIDTH 14.2 % (10.0-14.5); WHITE BLOOD COUNT 8.7 10^3/uL (4.3-11.0)
[2016-11-29 06:04] VITALS: BP 140/66
[2016-11-29 06:06] LABS: ALANINE AMINOTRANSFERASE 23 U/L (0-55); ALBUMIN 3.4 GM/DL (3.2-4.5); ANION GAP 10 MMOL/L (5-14); ASPARTATE AMINO TRANSFERASE 16 U/L (5-34); BILIRUBIN,TOTAL 0.2 MG/DL (0.1-1.0); BLOOD UREA NITROGEN 14 MG/DL (7-18); BUN/CREATININE RATIO 21; CALCIUM 8.7 MG/DL (8.5-10.1); CARBON DIOXIDE 23 MMOL/L (21-32); CHLORIDE 108 MMOL/L (98-107); CREATININE SERUM 0.67 MG/DL (0.60-1.30); GFR ESTIMATED > 60; GLUCOSE 94 MG/DL (70-105); POTASSIUM 3.6 MMOL/L (3.6-5.0); SODIUM 141 MMOL/L (135-145); TOTAL PROTEIN 6.3 GM/DL (6.4-8.2)
[2016-11-29] MEDS: NS IV 1000 ML 1,000 ML IV SCH (06:51)
[2016-11-29] MEDS: PANTOPRAZOLE 40 MG (PROTONIX) TAB PO SCH (06:51)
[2016-11-29] MEDS: OXYBUTYNIN (DITROPAN) 5 MG TAB PO SCH ×2 (08:31→21:25)
[2016-11-29] MEDS: ASPIRIN E.C. 81 MG (ECOTRIN) TAB PO SCH (08:31)
[2016-11-29] MEDS: cefTRIAXone INJECTION 1,000 MG in NS (IVPB) 50 ML IV SCH (08:31)
[2016-11-29] MEDS: amLODIPine 5 MG (NORVASC) TAB PO SCH ×2 (08:31→21:25)
[2016-11-29] MEDS: SENNA W/DOCUSATE (SENOKOT S) TABLET PO SCH ×2 (08:31→21:25)
--- NOTE | 2016-11-29 09:07 | Physical Therapy Daily Note ---
PT Daily Note-Current Subjective Pt. states she is feeling much better. Wants to walk and toilet. Feels she will likely go home Mon Pain Numeric Pain Scale: 0-No Pain Mental Status Patient Orientation: Normal For Age Attachments: IV Transfers Functional [place] Measure 0=Not Assessed/NA 4=Minimal Assistance 1=Total Assistance 5=Supervision or Setup 2=Maximal Assistance 6=Modified [place] 3=Moderate Assistance 7=Complete IndependenceIRFPAI Quality Coding Scale 6 Independent with activity with or without an assistive device 5 Patient requires set up or clean up by helper. Patient completes activity by themselves 4 Supervision or touching assist (CGA). [place] provide cues , steadying assist 3 The helper provides less than half the effort to complete the activity 2 The helper provides more than half the effort to complete the activity 1 Dependent. The helper does all the effort to complete an activity 7 Patient refused to complete or attempt activity 9 The patient did not perform the activity before the current illness or injury 88 Not attempted due to Medical conditions or safety concerns Transfers (B, C, W/C) (FIM): 7 all bed chair and toilet TRFs Mod I to indep Gait Training Gait (FIM): 6 Gait Assistive Device: None 300ft no AD no LOB, slow, small steps at times Exercises Seated Therapy Exercises: Ankle pumps, Sit to stand, Long arc quads, Hip flexion Seated Reps: 10 Treatments toileted indep Assessment Current Status: Good Progress PT Jail Goals Jail Goals PT Jail Goals Time Frame: Dec 05, 2016 Transfers (B,C,W/C) (FIM): 7 Gait (FIM): 7 Gait distance (FIM): 3=150 ft Gait Level of Assist: 7 Gait Assistive Device: None PT Plan Treatment/Plan Treatment Plan: Continue Plan of Care Treatment Plan: Education, Functional Activity Tip, Functional Strength, Gait , Safety, Therapeutic Exercise, Transfers Treatment Duration: Dec 05, 2016 Frequency: 6 times per week Estimated Hrs Per Day: .25 hour per day Patient and/or Family Agrees t: Yes Safety Risks/Education Patient Education: Gait Training, Transfer Techniques, Correct Positioning, Safety Issues Teaching Recipient: Patient Teaching Methods: Demonstration, Discussion Response to Teaching: Verbalize Understanding, Return Demonstration Time/GCodes Time In: 850 Time Out: 905 Total Billed Treatment Time: 15 Total Billed Treatment 1,GT15m G Codes Necessary: No RUPA FLORES BIOLOGICAL TECHNICAL OFFICER Nov 29, 2016 09:07
[2016-11-29] MEDS ORDERED: LEVOFLOXACIN 750 MG/150 ML IV 150 ML IV SCH (09:30)
--- NOTE | 2016-11-29 09:52 | Progress Note (SOAP) ---
Subjective Date Seen by Provider: Nov 29, 2016 Time Seen by Provider: 09:55 Subjective/Events-last exam PT IS SITTING IN CHAIR AT SIDE OF BED. SHE REPORTS THAT SHE IS CONTINUING TO FEEL BETTER. SHE CONTINUES TO HAVE QUITE A BIT OF INCONTINENCE, WORSE IN THE MIDDLE OF THE NIGHT - SHE HAS TO GET UP EVERY FEW HOURS. SHE STATES THAT SHE IS EATING AND DRINKING WELL. Review of Systems General: Fatigue HEENT: No Head Aches Pulmonary: No Dyspnea, No Cough Cardiovascular: No: Chest Pain, Palpitations Gastrointestinal: No: Abdominal Pain, Nausea Genitourinary: Frequency, Incontinence Neurological: Weakness Objective Exam Vital Signs Date Time Temp Pulse Resp B/P (MAP) Pulse Ox O2 Delivery O2 Flow Rate FiO2 11/29/16 06:04 98.2 57 20 140/66 96 Room Air 11/28/16 19:13 Room Air 11/28/16 18:00 98.7 60 20 132/60 98 Room Air I & O 11/29/16 07:00 Intake Total 4385 ml Output Total 3500 ml Balance 885 ml Capillary Refill : General Appearance: No Apparent Distress, WD/WN HEENT: PERRL/EOMI, Pharynx Normal Neck: Full Range of Motion, Supple Respiratory: Chest Non Tender, Lungs Clear, Normal Breath Sounds, No Accessory Muscle Use Cardiovascular: Regular Rate, Rhythm, No Edema Gastrointestinal: normal bowel sounds, non tender, soft, no organomegaly Extremity: Normal Capillary Refill, No Pedal Edema Neurologic/Psychiatric: Alert, Oriented x3, No Motor/Sensory Deficits, Normal Mood/Affect Skin: Warm/Dry Lymphatic: No Adenopathy Results Lab Laboratory Tests 11/29/16 04:21: White Blood Count 8.7, Red Blood Count 4.32L, Hemoglobin 12.3, Hematocrit 37, Mean Corpuscular Volume 86, Mean Corpuscular Hemoglobin 29, Mean Corpuscular Hemoglobin Concent 33, Red Cell Distribution Width 14.2, Platelet Count 243, Mean Platelet Volume 8.8, Sodium Level 141, Potassium Level 3.6, Chloride Level 108H, Carbon Dioxide Level 23, Anion Gap 10, Blood Urea Nitrogen 14, Creatinine 0.67, Estimat Glomerular Filtration Rate > 60, BUN/Creatinine Ratio 21, Glucose Level 94, Calcium Level 8.7, Total Bilirubin 0.2, Aspartate Amino Transf (AST/ SGOT) 16, Alanine Aminotransferase (ALT/SGPT) 23, Alkaline Phosphatase 67, Total Protein 6.3L, Albumin 3.4 Assessment/Plan Assessment/Plan Assess & Plan/Chief Complaint SEPSIS ECOLI POSITIVE BLOOD CULTURES UTI -ECOLI PNEUMONIA FATIGUE WEAKNESS HYPERTENSION GERD URGE INCONTINENCE SEPSIS WITH ECOLI POSITIVE BLOOD CULTURES - MONITOR SYMPTOMS - STARTED ON ROCEPHIN AND LEVAQUIN ADDED - WITH IMPROVED SYMPTOMS.. UTI -ECOLI - ON ROCEPHIN. PNEUMONIA - ON ROCEPHIN - MONITOR CHEST XRAY TOMORROW FOR CONTINUED DOCUMENTATION OF CLEARING. FATIGUE - WEAKNESS - IMPROVING - CONTINUE WITH TWICE A DAY PHYSICAL THERAPY HYPERTENSION - ON HOME MEDICATIONS. GERD - ON PPI URGE INCONTINENCE - INCREASE OXYBUTYNIN TO 10MG BID. - WILL DO REFERRAL OUTPATIENT TO [facility] - ALISON GARCIA MD Nov 29, 2016 09:51
[2016-11-29] MEDS: LEVOFLOXACIN 750 MG TAB (LEVAQUIN) PO SCH (10:41)
[2016-11-29] MEDS: ENOXAPARIN 40 MG/0.4 ML (LOVENOX) SYR SC SCH (10:41)
[2016-11-29 18:00] VITALS: BP 122/76
[2016-11-29] MEDS: traZODone 50 MG (DESYREL) TAB PO SCH (21:23)
[2016-11-29] MEDS: POLYETHYLENE GLYCOL 17 GM (MIRALAX) PACK PO SCH (21:25)
[2016-11-29] MEDS: LORazepam 0.5 MG (ATIVAN) TABLET PO PRN (21:25)
[2016-11-30 06:10] VITALS: BP 138/64
[2016-11-30] MEDS: PANTOPRAZOLE 40 MG (PROTONIX) TAB PO SCH (06:54)
[2016-11-30] MEDS: ASPIRIN E.C. 81 MG (ECOTRIN) TAB PO SCH (09:35)
[2016-11-30] MEDS: OXYBUTYNIN (DITROPAN) 5 MG TAB PO SCH ×2 (09:35→20:47)
[2016-11-30] MEDS: cefTRIAXone INJECTION 1,000 MG in NS (IVPB) 50 ML IV SCH (09:35)
[2016-11-30] MEDS: amLODIPine 5 MG (NORVASC) TAB PO SCH ×2 (09:35→20:47)
[2016-11-30] MEDS: ENOXAPARIN 40 MG/0.4 ML (LOVENOX) SYR SC SCH (09:36)
[2016-11-30] MEDS: SENNA W/DOCUSATE (SENOKOT S) TABLET PO SCH ×2 (09:36→20:47)
--- NOTE | 2016-11-30 09:55 | Progress Note (SOAP) ---
Subjective Date Seen by Provider: Nov 30, 2016 Time Seen by Provider: 09:55 Subjective/Events-last exam PT REPORTS THAT SHE IS FEELING GREAT. SHE STATES THAT SHE IS LESS SHORT OF BREATH TODAY. NO ABDOMINAL PAIN, NO DIZZINESS, NO DIARRHEA, NOT NAUSEA OR EMESIS. Review of Systems General: Fatigue HEENT: No Head Aches Pulmonary: No Dyspnea, No Cough Cardiovascular: No: Chest Pain, Palpitations Gastrointestinal: No: Abdominal Pain, Nausea Genitourinary: No Dysuria Neurological: Weakness, No: Confusion Objective Exam Vital Signs Date Time Temp Pulse Resp B/P (MAP) Pulse Ox O2 Delivery O2 Flow Rate FiO2 11/30/16 06:10 99.0 60 18 138/64 95 Room Air 11/29/16 18:46 Room Air 11/29/16 18:00 98.2 55 20 122/76 99 Room Air I & O 11/30/16 06:59 Intake Total 3270 ml Output Total 2150 ml Balance 1120 ml Capillary Refill : General Appearance: No Apparent Distress, WD/WN HEENT: PERRL/EOMI, Pharynx Normal Neck: Full Range of Motion, Supple Respiratory: Chest Non Tender, Lungs Clear, Normal Breath Sounds Cardiovascular: Regular Rate, Rhythm Gastrointestinal: normal bowel sounds, non tender, soft Extremity: No Pedal Edema Neurologic/Psychiatric: Alert, Oriented x3, No Motor/Sensory Deficits, Normal Mood/Affect Skin: Warm/Dry Lymphatic: No Adenopathy Assessment/Plan Assessment/Plan Assess & Plan/Chief Complaint SEPSIS ECOLI POSITIVE BLOOD CULTURES UTI -ECOLI PNEUMONIA FATIGUE WEAKNESS HYPERTENSION GERD URGE INCONTINENCE SEPSIS WITH ECOLI POSITIVE BLOOD CULTURES - MONITOR SYMPTOMS - STARTED ON ROCEPHIN AND LEVAQUIN ADDED - WITH IMPROVED SYMPTOMS.. UTI -ECOLI - ON ROCEPHIN. PNEUMONIA - ON ROCEPHIN - MONITOR CHEST XRAY TOMORROW FOR CONTINUED DOCUMENTATION OF CLEARING. FATIGUE - WEAKNESS - IMPROVING - CONTINUE WITH TWICE A DAY PHYSICAL THERAPY HYPERTENSION - ON HOME MEDICATIONS. GERD - ON PPI URGE INCONTINENCE - INCREASE OXYBUTYNIN TO 10MG BID. - WILL DO REFERRAL OUTPATIENT TO [facility] - ALISON GARCIA MD Nov 30, 2016 09:55
[2016-11-30] MEDS: MICONAZOLE 2% POWDER (DESENEX AF) 90 GM TOP SCH ×3 (13:59→20:47)
[2016-11-30 18:00] VITALS: BP 140/66
[2016-11-30] MEDS: POLYETHYLENE GLYCOL 17 GM (MIRALAX) PACK PO SCH (20:47)
[2016-11-30] MEDS: LORazepam 0.5 MG (ATIVAN) TABLET PO PRN (20:47)
[2016-11-30] MEDS: traZODone 50 MG (DESYREL) TAB PO SCH (20:47)
[2016-12-01 06:00] VITALS: BP 150/75
[2016-12-01] MEDS: PANTOPRAZOLE 40 MG (PROTONIX) TAB PO SCH (06:00)
[2016-12-01] MEDS ORDERED: OXYB5TAB9 PO (09:14)
[2016-12-01] MEDS ORDERED: MICO90PO TOP (09:14)
[2016-12-01] MEDS: ASPIRIN E.C. 81 MG (ECOTRIN) TAB PO SCH (09:15)
[2016-12-01] MEDS: SENNA W/DOCUSATE (SENOKOT S) TABLET PO SCH (09:15)
[2016-12-01] MEDS: MICONAZOLE 2% POWDER (DESENEX AF) 90 GM TOP SCH (09:16)
[2016-12-01] MEDS: amLODIPine 5 MG (NORVASC) TAB PO SCH (09:16)
[2016-12-01] MEDS: OXYBUTYNIN (DITROPAN) 5 MG TAB PO SCH (09:16)
[2016-12-01] MEDS: ENOXAPARIN 40 MG/0.4 ML (LOVENOX) SYR SC SCH (09:17)
--- NOTE | 2016-12-01 09:18 | Discharge Inst-Complex ---
PDI Med Rec & Follow Up Appt. New Medications: Miconazole Nitrate (Lotrimin AF) 90 Gm Powder 0 GM TOP QID for 30 Days, #1 EA Oxybutynin Chloride (Oxybutynin Chloride) 5 Mg Tablet 10 MG PO BID for 30 Days, #60 TAB 6 Refills Continued Medications: Amlodipine Besylate (Norvasc) 5 Mg Tablet 5 MG PO HS, TAB Aspirin ([place] Aspirin) 81 Mg Tablet.dr 81 MG PO HS, TAB Folic Acid/Mv,Fe,Other Min (One Daily For Women Tablet) 1 Each Tablet 0.5 TAB PO DAILY, TAB Pantoprazole Sodium (Pantoprazole Sodium) 40 Mg Tablet.dr 40 MG PO DAILY, TAB Zolpidem Tartrate (Zolpidem Tartrate) 5 Mg Tablet 5 MG PO HS PRN for SLEEP, TAB Prescription: Transmitted to Pharmacy Activity, Diet and PDI Resume Normal Activity: Yes Discharge Diet: Regular Diet Drink 6-8 Glasses of Fluid/Day: Yes Driving Instructions: No Driving for 24 Hours Return to The Hospital For: ANY CONCERN FOR WORSENING ILLNESS OR LIFETHREATENING ILLESS OR INJURY Symptoms to Reoprt to : Appetite Changes, Constipation(Persistant), Fever Over 101 Degrees F, Pain/Pressure in Chest, Diarrhea(Persistant), Shortness of Breath For Problems or Questions: Contact Your Physician, Go to Emergency Room ALISON FERRELL MD Dec 01, 2016 09:18
--- NOTE | 2016-12-01 09:19 | Discharge Summary ---
Diagnosis/Chief Complaint Date of Admission Nov 27, 2016 at 09:28 Date of Discharge Discharge Date: Dec 01, 2016 Discharge Time: 1000 Discharge Summary Discharge Physical Examination Allergies: Coded Allergies: No Known Drug Allergies (Verified , 07/16/16) Vitals & I&Os Vital Signs Date Time Temp Pulse Resp B/P (MAP) Pulse Ox O2 Delivery O2 Flow Rate FiO2 12/01/16 06:33 Room Air 12/01/16 06:00 98.5 61 18 150/75 94 Discharge Instructions to patient/family Please see electonic discharge instructions given to patient. Discharge Medications Reviewed and agree with Discharge Medication list on patient's Discharge Instruction sheet ALISON FERRELL MD Dec 01, 2016 09:19
[2016-12-01] MEDS: LEVOFLOXACIN 750 MG TAB (LEVAQUIN) PO SCH (09:35)
--- NOTE | 2016-12-01 10:07 | Therapy Team Discharge Summary ---
Therapy Discharge Summary Discharge Recommendations Date of Discharge Therapy D/C Recommendations: Home w/ Family Support Physical Therapy Patient dismissing to home at PLOF of independent to modified independent LOF with all gross motor skills. Patient met goals and has good family support to follow. Patient has been instructed to remain active to ensure positive benefit of recovery. Patient and family voice understanding. PT [facility] Goals French Cord Binder Goals PT French Cord Binder Goals Time Frame: Dec 05, 2016 Transfers (B,C,W/C) (FIM): 7 (met 11/27/16) Sit to Lying (QC): 6 (met 11/27/16) Lying-Sitting on Side/Bed(QC): 6 (met 11/27/16) Sit to Stand (QC): 6 (met 11/27/16) Rollin (met 11/27/16) Chair/Rll-ao-Sewnd Xfer(QC): 6 (met 11/27/16) Does the Patient Walk: Yes Gait (FIM): 7 (met 11/27/16) Gait distance (FIM): 3=150 ft Walk 50ft with 2 Turns (QC): 6 (met 11/27/16) Walk 150 ft (QC): 6 (met 11/27/20) Gait Level of Assist: 7 Gait Assistive Device: None, FWW OT French Cord Binder Goals French Cord Binder Goals Time Frame: Dec 05, 2016 Eating (FIM): 7 Eating (QC): 6 Groomin Oral Hygiene (QC): 6 Upper Body Dressing(FIM): 6 Lower Body Dressing(FIM): 6 Toileting(FIM): 6 Toileting Hygiene (QC): 6 Toilet/Commode Transfer(FIM): 6 Toilet/Commode Transfer (QC): 6 Pt will be independent with home exercise program to strengthen arms to help with activity tolerance and ADLs Additional Goals: 2-Verbalize Understanding, 3-ImproveStrength/Tip 1=Demonstrate adherence to instructed precautions during ADL tasks. 2=Patient will verbalize/demonstrate understanding of assistive devices/ modifications for ADL. 3=Patient will improve strength/tolerance for activity to enable patient to perform ADL's. MIRI VÁZQUEZ PT Dec 01, 2016 10:07
--- NOTE | 2016-12-01 14:11 | Therapy Team Discharge Summary ---
Therapy Discharge Summary Discharge Recommendations Date of Discharge Dec 01, 2016 at 10:20 Therapy D/C Recommendations: Home w/ Family Support Occupational Therapy Pt was seen for skilled OT to increase her independence in basic self care to allow her to safely return home with family support. On admission she was independent with eating, setup for bathing and SBA for toileting (help with IV) . She was made up ad wagner in her room. She was not seen by OT on the day of discharge so unknown if goals were met. DC OT PT Assisted Goals Assisted Goals PT Fly Setter Goals Time Frame: Dec 05, 2016 Transfers (B,C,W/C) (FIM): 7 (met 11/27/16) Sit to Lying (QC): 6 (met 11/27/16) Lying-Sitting on Side/Bed(QC): 6 (met 11/27/16) Sit to Stand (QC): 6 (met 11/27/16) Rollin (met 11/27/16) Chair/Yoh-uw-Vnsho Xfer(QC): 6 (met 11/27/16) Does the Patient Walk: Yes Gait (FIM): 7 (met 11/27/16) Gait distance (FIM): 3=150 ft Walk 50ft with 2 Turns (QC): 6 (met 11/27/16) Walk 150 ft (QC): 6 (met 11/27/20) Gait Level of Assist: 7 Gait Assistive Device: None, FWW OT Assisted Goals Assisted Goals Time Frame: Dec 05, 2016 Eating (FIM): 7 Eating (QC): 6 Groomin Oral Hygiene (QC): 6 Upper Body Dressing(FIM): 6 Lower Body Dressing(FIM): 6 Toileting(FIM): 6 Toileting Hygiene (QC): 6 Toilet/Commode Transfer(FIM): 6 Toilet/Commode Transfer (QC): 6 Pt will be independent with home exercise program to strengthen arms to help with activity tolerance and ADLs Additional Goals: 2-Verbalize Understanding, 3-ImproveStrength/Tip 1=Demonstrate adherence to instructed precautions during ADL tasks. 2=Patient will verbalize/demonstrate understanding of assistive devices/ modifications for ADL. 3=Patient will improve strength/tolerance for activity to enable patient to perform ADL's. DEBBIE SIMMONS OT Dec 01, 2016 14:10
== END 2016-12-01 10:20 | disposition home or self-care (01) | DRG 871 ==
LOC: 4TH 11-27 09:28 → ENPENDDIS 12-01 10:00
PROVIDERS: ADMIT Family Medicine; ATTEND Family Medicine
DX: A41.51 Sepsis due to Escherichia coli [E. coli] (principal); N39.0 Urinary tract infection, site not specified; J18.9 Pneumonia, unspecified organism; I10 Essential (primary) hypertension; K21.9 Gastro-esophageal reflux disease without esophagitis; H91.93 Unspecified hearing loss, bilateral; R53.83 Other fatigue; N39.41 Urge incontinence; Z86.010 Personal history of colon polyps; Z87.19 Personal history of other diseases of the digestive system
CPT/HCPCS: 36415; 80053; 85027; 94760

== ENCOUNTER → 2017-03-12 | Outpatient (CLI) | payer MEDICARE ==
[~2017-03-12] MED LIST changes: -IOHEXOL 350 MG/ML 100 ML (OMNIPAQUE 350) VIAL IV ONE; +MICO90PO TOP; -NS 100 ML (IVPB) BAG IV ONE
--- NOTE | 2017-03-12 13:23 | Diagnostic Imaging Report ---
PROCEDURE: CT abdomen and pelvis without contrast. TECHNIQUE: Multiple contiguous axial images were obtained through the abdomen and pelvis without the use of intravenous contrast. INDICATION: Abdominal pain. COMPARISON: 11/26/16. FINDINGS: The lung bases demonstrate minimal atelectasis. Small pericardial effusion is noted. The liver, the spleen, the adrenal glands, and the pancreas appear unremarkable. Cholecystectomy clips are seen. The kidneys demonstrate no stones or hydronephrosis. No urinary tract stones. There is a 1.8 cm exophytic cystic lesion in the right kidney. There is diverticulosis extensive in the sigmoid colon in particular with no evidence of diverticulitis. Small periumbilical fat-containing hernias are seen. The abdominal aorta is normal in caliber. No para-aortic significantly enlarged lymph node. No significant free fluid or fluid collection in the abdomen or pelvis is seen. There is suggestion of hysterectomy. Correlate with surgical history. Advanced degenerative changes are seen in the osseous structures. IMPRESSION: 1. Diverticulosis. No diverticulitis. 2. Small fat-containing periumbilical hernias. Dictated by: Dictated on workstation # [id number]
== END ==
LOC: RAD 12:03
PROVIDERS: ATTEND Nurse Practitioner Family
DX: K57.30 Diverticulosis of large intestine without perforation or abscess without bleeding (principal); K42.9 Umbilical hernia without obstruction or gangrene
CPT/HCPCS: 74176

== ENCOUNTER 2017-04-17 07:56 | Inpatient (IN) | payer MEDICARE ==
[~2017-04-17] VITALS: Ht 165.1 cm; Wt 66.3 kg
--- OUTSIDE RECORDS SUMMARY | 2017-04-17 08:03 | XMS REPORT | Continuity of Care Document ---
Author Author [employer] Organization [facility] Address Unknown Phone Unavailable Care Team Providers Care Environmental Solutions Engineer Name Role Phone [employer] Unavailable Unavailable Problems Medications Allergies, Adverse Reactions, Alerts Immunizations Results Vital Signs Encounters Procedures Plan of Care Social History Assessment and Plan Family History Value Date Source Advance Directives Order Name Results Value Date Source
--- OUTSIDE RECORDS SUMMARY | 2017-04-17 08:03 | XMS REPORT | Clinical Summary ---
Author Author [facility] Organization [facility] Address Unknown Phone Unavailable Care Team Providers Care Motion Study Engineer Name Role Phone PCP Unavailable Source Comments Some departments are not documenting in the electronic medical record. If you do not see the information that you expected, contact Release of Information in the Health Information Management department at [phone] for further assistance in locating additional records.[facility] Allergies No Known Allergies Current Medications Prescription Sig. Disp. Refills Start End Date Status Date amLODIPine (NORVASC) 5 mg Take 5 mg by mouth daily. Active tablet pantoprazole DR Take 40 mg by mouth Active (PROTONIX) 40 mg tablet daily. oxybutynin XL (DITROPAN Take 5 mg by mouth twice Active XL) 5 mg tablet daily. zolpidem (AMBIEN) 5 mg Take 5 mg by mouth at Active tablet bedtime as needed for Sleep. vitamin E 100 unit Take 100 Units by mouth Active capsule daily. estradiol (ESTRACE) 0.01 Insert or Apply to 42.5 g 11 01/03/20 Active % (0.1 mg/g) vaginal vaginal area three times 17 creamIndications: Urge weekly. Apply as incontinence directed, apply at bedtime, vaginal fingertip application trospium(+) (SANCTURA) 20 Take 1 tablet by mouth 180 tablet 3 Active mg tabletIndications: twice daily before meals. 17 Urge incontinence Active Problems Problem Noted Date Pelvic prolapse 01/02/2017 Overview: Apical Grade 3 ~ Pelvic exam 01/01/17 Hematuria 01/02/2017 Overview: Per patient history of microhematuria in the past L ast Assessment & Plan: UA at follow up ~ will review at that time if further evaluation recommended Recent Urosepsis Urge incontinence 01/02/2017 Last Assessment & Plan: Reviewed dietary irritants Trial of Trospium 20mg BID FU 3 months Sepsis due to Escherichia coli (HCC) 01/01/2017 Overview: History of 11/2016 Urosepsis Admitted x 10 days L ast Assessment & Plan: Start estrace cream Needs FU CT scan in 2 months ~ reviewed with patient plans to get locally, PMD to order, so they can compare to recent CT scans Requested CT images to be imported, reminded patient with future study needs to bring report and images for review Vaginal atrophy 01/01/2017 Last Assessment & Plan: Estrace cream reviewed application and handout given Family History Medical History Relation Name Comments Cancer Other Hypertension Other Relation Name Status Comments Other Social History Tobacco Use Types Packs/Day Years Used Date Never Smoker Smokeless Tobacco: Never Used Alcohol Use Drinks/Week oz/Week Comments Yes Sex Assigned at Date Recorded Not on file Last Filed Vital Signs Vital Sign Reading Time Taken Blood Pressure 153/60 01/01/2017 1:53 PM CDT Pulse 63 01/01/2017 1:53 PM CDT Temperature - - Respiratory Rate - - Oxygen Saturation - - Inhaled Oxygen - - Concentration Weight 67.6 kg (149 lb) 01/01/2017 1:53 PM CDT Height 165.1 cm (5' 5") 01/01/2017 1:53 PM CDT Body Mass Index 24.79 01/01/2017 1:53 PM CDT Plan of Treatment Health Maintenance Due Date Last Done Comments PHYSICAL (COMPREHENSIVE) 1937 EXAM PERTUSSIS VACCINE 1941 TETANUS VACCINE 1947 SHINGLES VACCINE 1990 OSTEOPOROSIS SCREENING 1995 PREVNAR/PNEUMOVAX (#1) 1995 INFLUENZA VACCINE 12/09/2016 Results Not on filefrom Last 3 Months
[2017-04-17] MEDS ORDERED: LACTATED RINGERS 1,000 ML IV ONE (08:27)
--- NOTE | 2017-04-17 08:39 | ED GU-Female ---
General Chief Complaint: Fever-Adult/Adol Stated Complaint: FEVER,CHILLS,DISORIENTED Source: patient, family (daughter) Exam Limitations: no limitations History of Present Illness Time seen by provider: 08:21 Initial Comments Patient presents to ER by private conveyance with her daughter and a chief complaint that she started feeling ill, malaise, chills and shakes last night. She did not check her temperature but she did take some Tylenol last night and Advil again at 0500 this morning. She feels a little short of breath but does not have any history of lung or heart disease. She does have blood pressure problems and uses her blood pressure medicines routinely. Patient says she's been urinating more frequently. She has no ear fullness, pain, nasal congestion , sore throat, dental pain, headache, neck pain, chest pain, cough, abdominal pain, vomiting, diarrhea, constipation. She had a bowel movement yesterday was normal. She had some nausea this morning but no vomiting. Her daughter relates that about 9 months ago she was in the hospital for 10 days with urosepsis. She says that her mom presented in the same way with a sudden onset of sickness in the same symptoms. She denies having a flu shot this year. Allergies and Home Medications Allergies Coded Allergies: No Known Drug Allergies (Verified , 07/16/16) Home Medications Amlodipine Besylate 5 Mg Tablet, 5 MG PO HS, (Reported) Aspirin 81 Mg Tablet.dr, 81 MG PO HS, (Reported) Folic Acid/Mv,Fe,Other Min 1 Each Tablet, 0.5 TAB PO DAILY, (Reported) Miconazole Nitrate 90 Gm Powder, 0 GM TOP QID for 30 Days, #1 Prescribed by: ALISON ROSARIO on 12/01/16 0914 Oxybutynin Chloride 5 Mg Tablet, 10 MG PO BID for 30 Days, #60 Ref 6 Prescribed by: ALISON ROSARIO on 12/01/16 0914 Pantoprazole Sodium 40 Mg Tablet.dr, 40 MG PO DAILY, (Reported) Zolpidem Tartrate 5 Mg Tablet, 5 MG PO HS PRN for SLEEP, (Reported) Constitutional: chills, No fever, malaise EENTM: hearing loss, No ear discharge, No ear pain Respiratory: No cough, short of breath (mild) Cardiovascular: No chest pain, No Hx of Intervention, No palpitations, No syncope, No vascular heart diseas Gastrointestinal: No abdominal pain, No constipation, No diarrhea, nausea, No vomiting Genitourinary: denies burning, denies discharge, denies dysuria, frequency Musculoskeletal: No back pain, No joint pain Skin: No pruritus, No rash Psychiatric/Neurological: Denies Headache, Denies Numbness, Denies Paresthesia Past Tmmajxi-[id number]-Ujkcdp Hx Patient Social History Alcohol Use: Denies Use Recreational Drug Use: No Smoking Status: Never a Smoker Recent Foreign Travel: No Contact w/Someone Who Travel: No Recent Hopitalizations: No Immunizations Up To Date Tetanus Booster (TDap): Unknown Date of Pneumonia Vaccine: Feb 08, 2011 Date of Influenza Vaccine: Feb 16, 2017 Seasonal Allergies Seasonal Allergies: No Surgeries History of Surgeries: Yes (CYST REMOVED FROM KNEE, CATARACTS) Surgeries: Gallbladder, Hysterectomy Respiratory History of Respiratory Disorde: Yes Respiratory Disorders: Pneumonia Cardiovascular History of Cardiac Disorders: Yes Cardiac Disorders: Hypertension Neurological History of Neurological Disord: No Reproductive System Hx Reproductive Disorders: No Sexually Transmitted Disease: No 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 Genitourinary History of Genitourinary Disor: Yes (RECENT UTI) Gastrointestinal History of Gastrointestinal Di: No (RECTAL BLEEDING) Gastrointestinal Disorders: Gastroesophageal Reflux, Diverticulosis, Polyps Musculoskeletal History of Musculoskeletal Dis: No Endocrine History of Endocrine Disorders: No HEENT Loss of Vision: Bilateral Hearing Impairment: Hard of Hearing Cancer History of Cancer: No Did You Recieve Any Treatments: No Psychosocial History of Psychiatric Problem: No Integumentary History of Skin or Integumenta: No Blood Transfusions History of Blood Disorders: No Adverse Reaction to a Blood Tr: No (N/A) Family Medical History Significant Family History: No Pertinent Family Hx Physical Exam Vital Signs Vital Sign - Last 12Hours 04/17/17 08:01 Temp 99.1 Pulse 91 Resp 25 B/P (MAP) 125/50 (75) Pulse Ox 97 O2 Delivery Room Air Capillary Refill : General Appearance: WD/WN, mild distress HEENT: PERRL/EOMI, normal ENT inspection, TMs normal, pharynx normal (oral mucosa is dry) Neck: non-tender, supple, normal inspection Cardiovascular: normal peripheral pulses, regular rate, rhythm, no edema Respiratory: chest non-tender, lungs clear, normal breath sounds, no respiratory distress, no accessory muscle use Gastrointestinal: normal bowel sounds, soft, no organomegaly, no pulsatile mass , tenderness (suprapubic), No mass Extremities: normal range of motion, normal inspection, no pedal edema, no calf tenderness, normal capillary refill Neurologic/Psychiatric: alert, oriented x 3, depressed affect Skin: normal color, warm/dry Focused Exam Evaluation Lactate Level Laboratory Tests 04/17/17 08:38: Lactic Acid Level 1.25 Lactic Acid Level Laboratory Tests Test 04/17/17 08:38 Lactic Acid Level 1.25 MMOL/L (0.50-2.00) Progress/Results/Core Measures Suspected Sepsis SIRS Temperature: Pulse: Respiratory Rate: Laboratory Tests 04/17/17 08:38: White Blood Count 20.8H Blood Pressure / Mean: Laboratory Tests 04/17/17 08:38: Lactic Acid Level 1.25 Laboratory Tests 04/17/17 08:38: Creatinine 0.82, Platelet Count 189, Total Bilirubin 0.8 Results/Orders Lab Results Laboratory Tests Test 04/17/17 08:38 04/17/17 08:55 Range/Units White Blood Count 20.8 H 4.3-11.0 10^3/uL Red Blood Count 4.51 4.35-5.85 10^6/uL Hemoglobin 13.1 11.5-16.0 G/DL Hematocrit 39 35-52 % Mean Corpuscular Volume 86 80-99 FL Mean Corpuscular Hemoglobin 29 25-34 PG Mean Corpuscular Hemoglobin Concent 34 32-36 G/DL Red Cell Distribution Width 14.9 H 10.0-14.5 % Platelet Count 189 130-400 10^3/uL Mean Platelet Volume 9.0 7.4-10.4 FL Neutrophils (%) (Auto) 92 H 42-75 % Lymphocytes (%) (Auto) 4 L 12-44 % Monocytes (%) (Auto) 3 0-12 % Eosinophils (%) (Auto) 0 0-10 % Basophils (%) (Auto) 0 0-10 % Neutrophils # (Auto) 19.2 H 1.8-7.8 X 10^3 Lymphocytes # (Auto) 0.9 L 1.0-4.0 X 10^3 Monocytes # (Auto) 0.6 0.0-1.0 X 10^3 Eosinophils # (Auto) 0.1 0.0-0.3 10^3/uL Basophils # (Auto) 0.0 0.0-0.1 10^3/uL Neutrophils % (Manual) 77 % Lymphocytes % (Manual) 11 % Monocytes % (Manual) 4 % Eosinophils % (Manual) 0 % Basophils % (Manual) 0 % Band Neutrophils 8 % Blood Morphology Comment NORMAL Sodium Level 140 135-145 MMOL/L Potassium Level 3.5 L 3.6-5.0 MMOL/L Chloride Level 107 98-107 MMOL/L Carbon Dioxide Level 22 21-32 MMOL/L Anion Gap 11 5-14 MMOL/L Blood Urea Nitrogen 18 7-18 MG/DL Creatinine 0.82 0.60-1.30 MG/DL Estimat Glomerular Filtration Rate > 60 BUN/Creatinine Ratio 22 Glucose Level 110 H 70-105 MG/DL Lactic Acid Level 1.25 0.50-2.00 MMOL/L Calcium Level 8.4 L 8.5-10.1 MG/DL Total Bilirubin 0.8 0.1-1.0 MG/DL Aspartate Amino Transf (AST/SGOT) 16 5-34 U/L Alanine Aminotransferase (ALT/SGPT) 12 0-55 U/L Alkaline Phosphatase 71 40-136 U/L Total Protein 6.2 L 6.4-8.2 GM/DL Albumin 3.6 3.2-4.5 GM/DL Urine Color YELLOW Urine Clarity SLIGHTLY CLOUDY Urine pH 6.5 5-9 Urine Specific Ridge 1.015 L 1.016-1.022 Urine Protein 3+ H NEGATIVE Urine Glucose (UA) NEGATIVE NEGATIVE Urine Ketones NEGATIVE NEGATIVE Urine Nitrite POSITIVE H NEGATIVE Urine Bilirubin NEGATIVE NEGATIVE Urine Urobilinogen NORMAL NORMAL MG/DL Urine Leukocyte Esterase 3+ H NEGATIVE Urine RBC (Auto) 4+ H NEGATIVE Urine RBC 5-10 H /HPF Urine WBC 25-50 H /HPF Urine Squamous Epithelial Cells NONE /HPF Urine Crystals NONE /LPF Urine Bacteria LARGE H /HPF Urine Casts NONE /LPF Urine Mucus NEGATIVE /LPF Urine Culture Indicated YES My Orders Orders - NYDIA BERMEO Cbc With Automated Diff (04/17/17 08:27) Comprehensive Metabolic Panel (04/17/17 08:27) Lactic Acid Analyzer (04/17/17 08:27) Ua Culture If Indicated (04/17/17 08:27) Saline Lock/Iv-Start (04/17/17 08:27) Lactated Ringers (Lr 1000 Ml Iv Solution (04/17/17 08:27) Manual Differential (04/17/17 08:38) Urine Culture (04/17/17 08:55) Blood Culture (04/17/17 09:43) Sputum Culture (04/17/17 09:43) Protime With Inr (04/17/17 09:43) Partial Thromboplastin Time (04/17/17 09:43) Chest 1 View, Ap/Pa Only (04/17/17 09:43) O2 (04/17/17 09:43) Vital Signs Adult Sepsis Patie Q1H (04/17/17 09:43) Ceftriaxone Injection (Rocephin Injectio (04/17/17:43) Remove Rings In Anticipation O (04/17/17:43) Saline Lock/Iv-Start (04/17/17 09:43) Ns Iv 500 Ml (Sodium Chloride 0.9%) (04/17/17 09:43) Medications Given in ED Current Medications Medications Dose Ordered Sig/Ronnie Route Start Time Stop Time Status Last Admin Dose Admin Lactated Ringer's 1,000 ml @ 0 mls/hr Q0M ONCE IV 04/17/17 08:27 04/17/17 08:32 DC 04/17/17 08:48 0 MLS/HR Vital Signs/I&O Vital Sign - Last 12Hours 04/17/17 08:01 Temp 99.1 Pulse 91 Resp 25 B/P (MAP) 125/50 (75) Pulse Ox 97 O2 Delivery Room Air Capillary Refill : Progress Note : Time: 08:38 Progress Note Patient has frequency but no fever. Concern for UTI with superpubic tenderness on palpation. Not sure how to explain her shortness of breath that she's not having any upper or lower respiratory symptoms otherwise. Her sats are high 90s on room air. She is not using any accessory muscles or any other evidence of respiratory distress. We'll obtain blood, lactic acid and urine. If we don't find overt evidence of specific infection then we will expand search. Her heart rate is above 90 however no other signs of sepsis. Departure Communication (Admissions) Time/Spoke to Admitting Phy: 09:[address] Rosario: Discussed case lab imaging findings. Rocephin and IV fluids at maintenance 1.5. She will come see the patient. Impression Impression: Primary Impression: Urinary tract infection Qualified Codes: N30.01 - Acute cystitis with hematuria Additional Impression: Sepsis Qualified Codes: A41.9 - Sepsis, unspecified organism Disposition: HOME, SELF-CARE Condition: Stable Admissions Decision to Admit Reason: Admit from ER (General) Decision to Admit/Date: Apr 17, 2017 Time/Decision to Admit Time: 09:49 Departure-Patient Inst. Referrals: ALISON ROSARIO MD (PCP/Family) Primary Care Physician Copy Copies To 1: ALISON ROSARIO MD, TITUS J Apr 17, 2017 08:39
[2017-04-17 08:47] LABS: BASOPHILS % (AUTO) 0 % (0-10); EOSINOPHILS # (AUTO) 0.1 10^3/uL (0.0-0.3); EOSINOPHILS % (AUTO) 0 % (0-10); LYMPHOCYTES # (AUTO) 0.9 X 10^3 (1.0-4.0); LYMPHOCYTES % (AUTO) 4 % (12-44); MEAN CORPUSCULAR HEMOGLOBIN 29 PG (25-34); MEAN CORPUSCULAR HGB CONC 34 G/DL (32-36); MEAN CORPUSCULAR VOLUME 86 FL (80-99); MONOCYTES # (AUTO) 0.6 X 10^3 (0.0-1.0); MONOCYTES % (AUTO) 3 % (0-12); NEUTROPHILS # (AUTO) 19.2 X 10^3 (1.8-7.8); NEUTROPHILS % (AUTO) 92 % (42-75); PLATELET COUNT 189 10^3/uL (130-400); RED BLOOD COUNT 4.51 10^6/uL (4.35-5.85); RED CELL DISTRIBUTION WIDTH 14.9 % (10.0-14.5); WHITE BLOOD COUNT 20.8 10^3/uL (4.3-11.0)
[2017-04-17 09:00] LABS: BILIRUBIN,URINE NEGATIVE (NEGATIVE); KETONES,URINE NEGATIVE (NEGATIVE); LEUKOCYTE ESTERASE ,URINE 3+ (NEGATIVE); NITRITE,URINE POSITIVE (NEGATIVE); PH,URINE 6.5 (5-9); PROTEIN,URINE 3+ (NEGATIVE); UROBILINOGEN,URINE NORMAL (NORMAL)
[2017-04-17 09:06] LABS: ALANINE AMINOTRANSFERASE 12 U/L (0-55); ALBUMIN 3.6 GM/DL (3.2-4.5); ANION GAP 11 MMOL/L (5-14); ASPARTATE AMINO TRANSFERASE 16 U/L (5-34); BILIRUBIN,TOTAL 0.8 MG/DL (0.1-1.0); BLOOD UREA NITROGEN 18 MG/DL (7-18); BUN/CREATININE RATIO 22; CALCIUM 8.4 MG/DL (8.5-10.1); CARBON DIOXIDE 22 MMOL/L (21-32); CHLORIDE 107 MMOL/L (98-107); CREATININE SERUM 0.82 MG/DL (0.60-1.30); GFR ESTIMATED > 60; GLUCOSE 110 MG/DL (70-105); POTASSIUM 3.5 MMOL/L (3.6-5.0); SODIUM 140 MMOL/L (135-145); TOTAL PROTEIN 6.2 GM/DL (6.4-8.2)
[2017-04-17 09:21] LABS: WBC,URINE 25-50 /HPF
[2017-04-17 09:25] LABS: BAND NEUTROPHILS 8 %; BASOPHILS % (MANUAL) 0 %; EOSINOPHILS % (MANUAL) 0 %; LYMPHOCYTES % (MANUAL) 11 %; NEUTROPHILS % (MANUAL) 77 %
[2017-04-17] MEDS ORDERED: NS IV 500 ML 500 ML IV ONE (09:43)
[2017-04-17] MEDS ORDERED: cefTRIAXone 1 GM (ROCEPHIN) VIAL IV STA (09:43)
[2017-04-17] MEDS ORDERED: cefTRIAXone 1 GM (ROCEPHIN) VIAL ONE (09:46)
[2017-04-17] MEDS ORDERED: NS (IVPB) 50 ML ONE (09:47)
[2017-04-17 09:58] LABS: INR 1.1 (0.8-1.4); PROTHROMBIN TIME PATIENT 13.8 SEC (12.2-14.7)
--- OUTSIDE RECORDS SUMMARY | 2017-04-17 10:30 | XMS REPORT | Continuity of Care Document ---
Author Author [facility] Organization [facility] Address Unknown Phone Unavailable Care Team Providers Care Dry Man Name Role Phone [employer] Unavailable Unavailable Problems Medications Allergies, Adverse Reactions, Alerts Immunizations Results Vital Signs Encounters Procedures Plan of Care Social History Assessment and Plan Family History Value Date Source Advance Directives Order Name Results Value Date Source
--- OUTSIDE RECORDS SUMMARY | 2017-04-17 10:31 | XMS REPORT | Clinical Summary ---
Author Author [facility] Organization [facility] Address Unknown Phone Unavailable Care Team Providers Care Human Resources Administrator Name Role Phone PCP Unavailable Source Comments Some departments are not documenting in the electronic medical record. If you do not see the information that you expected, contact Release of Information in the Health Information Management department at [phone] for further assistance in locating additional records.[facility] Allergies No Known Allergies Current Medications Prescription [...]
--- NOTE | 2017-04-17 10:51 | Diagnostic Imaging Report ---
Portable upright radiograph of the chest. INDICATION: Fever. FINDINGS: The lungs are hyperinflated. Chronic appearing interstitial prominence is seen. The heart size is normal. No effusion or pneumothorax. The mediastinum and nida appear unremarkable. IMPRESSION: No acute process. Dictated by: Dictated on workstation # [id number]
[2017-04-17 11:30] VITALS: BP 118/72
[2017-04-17] MEDS ORDERED: ACETAMINOPHEN 500 MG TAB (TYLENOL) PO PRN (11:30)
[2017-04-17] MEDS ORDERED: CATHETER FLUSH 10 ML SYR IV PRN (11:30)
--- NOTE | 2017-04-17 11:40 | History & Physicial ---
History of Present Illness History of Present Illness Reason for visit/HPI PT IS AN 86 Y/O FEMALE WHO IS KNOWN TO ME FROM CLINIC. SHE HAS HISTORY OF RECURRENT URINARY TRACT INFECTIONS AND HAS BEEN SEEN AT [facility] FOR HER RECURRENT INFECTIONS. PER HER DAUGHTER, SHAILA WAS ACTING LIKE SHE FELT FINE ON THURSDAY AND WENT OUT TO EAT WITH FRIENDS. SHE APPARENTLY STARTED TO HAVE CHILLS AND THEN WAS FEELING EVEN WORSE LAST NIGHT AND EARLY THIS MORNING. SHE HAD A HIGH FEVER LAST NIGHT AND EARLY THIS MORNING AND PRESENTED TO THE ER DUE TO CONFUSION AND ACUTE WORSENING OF HER ILLNESS. Date of Admission Apr 17, 2017 at 09:55 Date Seen by Provider: Apr 17, 2017 Time Seen by Provider: 09:55 Attending Physician Georgie Rosario MD Admitting Physician Georgie Rosario MD Consult Allergies and Home Medications Allergies Coded Allergies: No Known Drug Allergies (Verified , 07/16/16) Home Medications Amlodipine Besylate 5 Mg Tablet, 5 MG PO HS, (Reported) Aspirin 81 Mg Tablet.dr, 81 MG PO HS, (Reported) Folic Acid/Mv,Fe,Other Min 1 Each Tablet, 0.5 TAB PO DAILY, (Reported) Miconazole Nitrate 90 Gm Powder, 0 GM TOP QID for 30 Days, #1 Prescribed by: GEORGIE ROSARIO on 12/01/16 0914 Oxybutynin Chloride 5 Mg Tablet, 10 MG PO BID for 30 Days, #60 Ref 6 Prescribed by: GEORGIE ROSARIO on 12/01/16 0914 Pantoprazole Sodium 40 Mg Tablet.dr, 40 MG PO DAILY, (Reported) Zolpidem Tartrate 5 Mg Tablet, 5 MG PO HS PRN for SLEEP, (Reported) Past [id number]-Ldwxju Hx Patient Social History Marrital Status: Living Status: lives at home alone Alcohol Use: Denies Use Recreational Drug Use: No Smoking Status: Never a Smoker 2nd Hand Smoke Exposure: No Physical Abuse Screen: No Sexual Abuse: No Recent Foreign Travel: No Contact w/other who traveled: No Recent Hopitalizations: No Recent Infectious Disease Expo: No Immunizations Up To Date Tetanus Booster (TDap): Unknown Date of Pneumonia Vaccine: Feb 08, 2011 Date of Influenza Vaccine: Feb 16, 2017 Seasonal Allergies Seasonal Allergies: No Surgeries Yes (CYST REMOVED FROM KNEE, CATARACTS) Gallbladder, Hysterectomy Respiratory Yes Currently Using CPAP: No Currently Using BIPAP: No Cardiovascular Yes Hypertension Neurological No Reproductive System : No Hx Reproductive Disorders: No Sexually Transmitted Disease: No 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 Genitourinary Yes (RECENT UTI) Gastrointestinal No (RECTAL BLEEDING) Gastroesophageal Reflux, Diverticulosis, Polyps Musculoskeletal No Endocrine History of Endocrine Disorders: No HEENT History of HEENT Disorders: No Loss of Vision: Bilateral Hearing Impairment: Hard of Hearing Cancer No Did You Recieve Any Treatments: No Psychosocial History of Psychiatric Problem: No Integumentary History of Skin or Integumenta: No Blood Transfusions History of Blood Disorders: No Adverse Reaction to a Blood Tr: No (N/A) Reviewed Nursing Assessment Reviewed/Agree w Nursing PMH: Yes Family Medical History Significant Family History: Hypertension Constitutional: No chills, fever, malaise, weakness EENTM: No blurred vision, No hoarseness, No throat pain Respiratory: No cough, No dyspnea on exertion, No short of breath Cardiovascular: No chest pain, No edema, No palpitations Gastrointestinal: abdominal pain, No constipation, No diarrhea, No nausea, No vomiting Genitourinary: frequency, incontinence Musculoskeletal: no symptoms reported Skin: no symptoms reported Psychiatric/Neurological: Denies Anxiety, Denies Depressed All Other Systems Reviewed Negative Unless Noted: Yes Physical Exam Vital Signs Vital Sign - Last 12Hours 04/17/17 08:01 Temp 99.1 Pulse 91 Resp 25 B/P (MAP) 125/50 (75) Pulse Ox 97 O2 Delivery Room Air Capillary Refill : Less Than 3 Seconds General Appearance: WD/WN, Mild Distress Eyes: Bilateral Eye Normal Inspection, Bilateral Eye PERRL, Bilateral Eye EOMI HEENT: PERRL/EOMI, TMs Normal, Normal ENT Inspection, Pharynx Normal Neck: Full Range of Motion, Supple Respiratory: Chest Non Tender, Lungs Clear, Normal Breath Sounds, No Accessory Muscle Use, No Respiratory Distress Cardiovascular: Regular Rate, Rhythm, No Edema, No Murmur Gastrointestinal: Normal Bowel Sounds, Soft, Tenderness (suprapubic) Neurologic/Psychiatric: Alert, No Motor/Sensory Deficits, Normal Mood/Affect, Other (oriented to person, not place or time) Skin: Warm/Dry Lymphatic: No Adenopathy Assessment/Plan Assessment and Plan SIRS URINARY TRACT INFECTION (HX OF ECOLI) HYPERTENSION CONFUSION ESOPHAGEAL REFLUX SIRS WITH URINARY TRACT INFECTION (HX OF ECOLI) - PT'S LAST POSITIVE CULTURE WAS IN OCTOBER 2016 AND ECOLI WAS FOUND AND SENSITIVE TO ROCEPHIN - CONTINUE WITH CURRENT RX FOR ROCEPHIN DAILY. WAIT ON CULTURE REPORT. HYPERTENSION - MONITOR PRESSURE - RESUME HOME MEDICATIONS. CONFUSION - DUE TO URINARY TRACT INFECTION. MONITOR SYMPTOMS. ESOPHAGEAL REFLUX - RESTART PROTONIX. ANTICIPATE PT TO BE IN HOSPITAL FOR THE NEXT 48 - 72 HOURS. DVT PROPHYLAXIS WITH LOVENOX GI PROPHYLAXIS WITH PPI Problems: Admission Diagnosis SIRS URINARY TRACT INFECTION (HX OF ECOLI) HYPERTENSION CONFUSION ESOPHAGEAL REFLUX GEORGIE ROSARIO MD Apr 17, 2017 11:40
[2017-04-17] MEDS: NS IV 1000 ML 1,000 ML IV SCH ×3 (12:15→23:40)
[2017-04-17] MEDS: IBUPROFEN 600 MG (MOTRIN) TAB PO PRN (12:25)
[2017-04-17] MEDS ORDERED: ASPI-983 PO (13:45)
[2017-04-17 16:15] VITALS: BP 124/70
[2017-04-17] MEDS ORDERED: INFLUENZA TRIvalent 2017-2018 0.5 ML/45 MCG SYR IM ONE (16:45)
[2017-04-17] MEDS: LACTOBACILLUS Acidoph/Bulgar (LACTINEX/FLORANEX) TAB PO SCH (17:01)
[2017-04-17] MEDS: ENOXAPARIN 40 MG/0.4 ML (LOVENOX) SYR SC SCH (17:01)
[2017-04-17] MEDS ORDERED: NON-FORMULARY MEDICATION 1 EA EA (Zolpidem Tartrate 5 MG) PO PRN (19:15)
[2017-04-17 19:35] VITALS: BP 125/71
[2017-04-17] MEDS: ZOLPIDEM 5 MG (AMBIEN) TAB PO PRN (20:18)
[2017-04-18] VITALS: BP 136/61
[2017-04-18 04:00] VITALS: BP 149/69
[2017-04-18] MEDS: LACTOBACILLUS Acidoph/Bulgar (LACTINEX/FLORANEX) TAB PO SCH ×3 (05:14→16:24)
[2017-04-18] MEDS: NS IV 1000 ML 1,000 ML IV SCH ×2 (05:14→11:33)
[2017-04-18] MEDS: PANTOPRAZOLE 40 MG (PROTONIX) TAB PO SCH (05:14)
[2017-04-18 06:45] LABS: BASOPHILS % (AUTO) 0 % (0-10); EOSINOPHILS # (AUTO) 0.3 10^3/uL (0.0-0.3); EOSINOPHILS % (AUTO) 2 % (0-10); LYMPHOCYTES # (AUTO) 1.9 X 10^3 (1.0-4.0); LYMPHOCYTES % (AUTO) 11 % (12-44); MEAN CORPUSCULAR HEMOGLOBIN 29 PG (25-34); MEAN CORPUSCULAR HGB CONC 33 G/DL (32-36); MEAN CORPUSCULAR VOLUME 88 FL (80-99); MEAN PLATELET VOLUME 9.7 FL (7.4-10.4); MONOCYTES # (AUTO) 1.2 X 10^3 (0.0-1.0); MONOCYTES % (AUTO) 7 % (0-12); NEUTROPHILS # (AUTO) 14.1 X 10^3 (1.8-7.8); NEUTROPHILS % (AUTO) 81 % (42-75); PLATELET COUNT 161 10^3/uL (130-400); RED BLOOD COUNT 3.89 10^6/uL (4.35-5.85); RED CELL DISTRIBUTION WIDTH 15.1 % (10.0-14.5); WHITE BLOOD COUNT 17.5 10^3/uL (4.3-11.0)
[2017-04-18 07:06] LABS: ALANINE AMINOTRANSFERASE 11 U/L (0-55); ANION GAP 7 MMOL/L (5-14); ASPARTATE AMINO TRANSFERASE 14 U/L (5-34); BILIRUBIN,TOTAL 0.4 MG/DL (0.1-1.0); BLOOD UREA NITROGEN 11 MG/DL (7-18); BUN/CREATININE RATIO 17; CALCIUM 7.9 MG/DL (8.5-10.1); CARBON DIOXIDE 20 MMOL/L (21-32); CHLORIDE 113 MMOL/L (98-107); CREATININE SERUM 0.66 MG/DL (0.60-1.30); GFR ESTIMATED > 60; GLUCOSE 104 MG/DL (70-105); MAGNESIUM 1.5 MG/DL (1.8-2.4); POTASSIUM 3.7 MMOL/L (3.6-5.0); SODIUM 140 MMOL/L (135-145); TOTAL PROTEIN 5.3 GM/DL (6.4-8.2)
[2017-04-18 08:00] VITALS: BP 140/65
[2017-04-18] MEDS: cefTRIAXone 1 GM/NS 50 ML IVPB IV SCH ×2 (09:29)
[2017-04-18] MEDS: IBUPROFEN 600 MG (MOTRIN) TAB PO PRN (09:31)
--- NOTE | 2017-04-18 12:08 | Progress Note-Hospitalist ---
Progress Note Progress Notes/Assess & Plan Date Seen 04/18/17 Time Seen by Provider: 11:15 Diagonsis/Assessment & Plan Pt feels better today just weak. Did not sleep due to disruption from urinary frequency at night Eating and drinking well so will stop IVF and add Pyridium to see if that helps the condition Asked the nurse to have a carney catheter placed due to urinary frequency and that likely will only make the infection more complex so will hold off on that request Checked meds and labs UCx pending results just Gram negative liza AFVSS, flat affect, O x 3, frail, daughter at bedside RRR, CTAB no rales noted No edema Laboratory Tests 04/18/17 06:01 Assessment: SIRS URINARY TRACT INFECTION (HX OF ECOLI) empirically placed on Rocephin HYPERTENSION CONFUSION improved ESOPHAGEAL REFLUX Urinary frequency causing sleep disruption Leukocytosis due to infection and SIRS HTN restarted home meds Plan: HLIVF Pyridium Abx empirically until UCx completed with I&D Home meds DORON PARRISH DO Apr 18, 2017 12:08
[2017-04-18 16:02] VITALS: BP 141/63
[2017-04-18] MEDS: PHENAZOPYRIDINE 100 MG (PYRIDIUM) TABLET PO SCH ×2 (16:09→17:09)
[2017-04-18] MEDS: ENOXAPARIN 40 MG/0.4 ML (LOVENOX) SYR SC SCH (16:25)
[2017-04-18] MEDS: ASPIRIN E.C. 81 MG (ECOTRIN) TAB PO SCH (20:45)
[2017-04-18] MEDS: amLODIPine 5 MG (NORVASC) TAB PO SCH (20:45)
[2017-04-18] MEDS: ZOLPIDEM 5 MG (AMBIEN) TAB PO PRN (21:33)
[2017-04-19] VITALS: BP 152/69
[2017-04-19 05:33] LABS: BASOPHILS % (AUTO) 0 % (0-10); EOSINOPHILS # (AUTO) 0.4 10^3/uL (0.0-0.3); EOSINOPHILS % (AUTO) 4 % (0-10); LYMPHOCYTES # (AUTO) 1.3 X 10^3 (1.0-4.0); LYMPHOCYTES % (AUTO) 13 % (12-44); MEAN CORPUSCULAR HEMOGLOBIN 29 PG (25-34); MEAN CORPUSCULAR HGB CONC 33 G/DL (32-36); MEAN CORPUSCULAR VOLUME 87 FL (80-99); MEAN PLATELET VOLUME 9.7 FL (7.4-10.4); MONOCYTES # (AUTO) 0.8 X 10^3 (0.0-1.0); MONOCYTES % (AUTO) 8 % (0-12); NEUTROPHILS # (AUTO) 7.4 X 10^3 (1.8-7.8); NEUTROPHILS % (AUTO) 75 % (42-75); PLATELET COUNT 175 10^3/uL (130-400); RED BLOOD COUNT 4.12 10^6/uL (4.35-5.85); RED CELL DISTRIBUTION WIDTH 14.9 % (10.0-14.5); WHITE BLOOD COUNT 9.9 10^3/uL (4.3-11.0)
[2017-04-19 06:04] LABS: ALANINE AMINOTRANSFERASE 11 U/L (0-55); ALBUMIN 3.2 GM/DL (3.2-4.5); ANION GAP 10 MMOL/L (5-14); ASPARTATE AMINO TRANSFERASE 15 U/L (5-34); BILIRUBIN,TOTAL 0.2 MG/DL (0.1-1.0); BLOOD UREA NITROGEN 11 MG/DL (7-18); BUN/CREATININE RATIO 16; CALCIUM 8.4 MG/DL (8.5-10.1); CARBON DIOXIDE 20 MMOL/L (21-32); CHLORIDE 112 MMOL/L (98-107); CREATININE SERUM 0.69 MG/DL (0.60-1.30); GFR ESTIMATED > 60; GLUCOSE 111 MG/DL (70-105); POTASSIUM 3.9 MMOL/L (3.6-5.0); SODIUM 142 MMOL/L (135-145); TOTAL PROTEIN 5.9 GM/DL (6.4-8.2)
[2017-04-19] MEDS: PANTOPRAZOLE 40 MG (PROTONIX) TAB PO SCH (06:07)
[2017-04-19] MEDS: LACTOBACILLUS Acidoph/Bulgar (LACTINEX/FLORANEX) TAB PO SCH ×3 (06:07→18:44)
[2017-04-19] MEDS ORDERED: PANTOPRAZOLE 40 MG (PROTONIX) TAB PO SCH (07:00)
[2017-04-19 08:00] VITALS: BP 158/71
[2017-04-19] MEDS: PHENAZOPYRIDINE 100 MG (PYRIDIUM) TABLET PO SCH ×3 (09:57→19:55)
[2017-04-19] MEDS: cefTRIAXone 1 GM/NS 50 ML IVPB IV SCH ×2 (09:58)
--- NOTE | 2017-04-19 11:40 | Progress Note-Hospitalist ---
Progress Note Progress Notes/Assess & Plan Date Seen 04/19/17 Time Seen by Provider: 10:30 Diagonsis/Assessment & Plan Pt feels better today and has an appt with Urology at [facility] Thursday. Now having urinary incontinence issues that are very frustrating for the patient. Checked meds and labs UCx reviewed No pain is reported. + BM. AFVSS, flat affect, O x 3, frail, poor recall noted RRR, CTAB no rales noted No edema Laboratory Tests 04/19/17 04:55 Assessment: SIRS URINARY TRACT INFECTION (HX OF ECOLI) empirically placed on Rocephin and noted pansensitive panel so will maintain current treatment HYPERTENSION CONFUSION improved but recall is noted to be deficient and likely dementia signs ESOPHAGEAL REFLUX Urinary frequency causing sleep disruption now with urinary incontinence Leukocytosis due to infection and SIRS HTN restarted home meds Plan: HLIVF Pyridium Abx to continue Home meds [facility] Urology Thursday Noted poor recall DORON PARRISH DO Apr 19, 2017 11:40
[2017-04-19] MEDS: ENOXAPARIN 40 MG/0.4 ML (LOVENOX) SYR SC SCH (14:14)
[2017-04-19 16:00] VITALS: BP 150/69
[2017-04-19] MEDS: amLODIPine 5 MG (NORVASC) TAB PO SCH (21:30)
[2017-04-19] MEDS: ASPIRIN E.C. 81 MG (ECOTRIN) TAB PO SCH (21:30)
[2017-04-20] VITALS: BP 176/68
[2017-04-20] MEDS: LACTOBACILLUS Acidoph/Bulgar (LACTINEX/FLORANEX) TAB PO SCH (06:32)
[2017-04-20] MEDS: PANTOPRAZOLE 40 MG (PROTONIX) TAB PO SCH (06:32)
[2017-04-20] MEDS: cefTRIAXone 1 GM/NS 50 ML IVPB IV SCH ×2 (08:36)
[2017-04-20] MEDS: PHENAZOPYRIDINE 100 MG (PYRIDIUM) TABLET PO SCH (08:36)
[2017-04-20 08:42] VITALS: BP 148/72
--- NOTE | 2017-04-20 08:44 | Progress Note (SOAP) ---
Subjective Date Seen by Provider: Apr 20, 2017 Time Seen by Provider: 08:44 Subjective/Events-last exam see dc summary Review of Systems General: Fatigue Objective Exam Vital Signs Date Time Temp Pulse Resp B/P (MAP) Pulse Ox O2 Delivery O2 Flow Rate FiO2 04/20/17 00:00 99.8 60 18 176/68 (104) Room Air 04/19/17 20:30 Room Air 04/19/17 16:00 97.3 60 18 150/69 (96) 95 Room Air I & O 04/20/17 07:00 Intake Total 2410 ml Output Total 2550 ml Balance -140 ml Capillary Refill : Less Than 3 Seconds General Appearance: No Apparent Distress, WD/WN Results Lab Microbiology 04/17/17 Blood Culture - Preliminary, Resulted No growth 04/17/17 Urine Culture - Final, Complete Escherichia Coli Assessment/Plan Assessment/Plan Assess & Plan/Chief Complaint see discharge summary Clinical Quality Measures DVT/VTE Risk/Contraindication: Risk Factor Score Per Nursin RFS Level Per Nursing on Admit: 3=High ALISON FERRELL MD Apr 20, 2017 08:44
[2017-04-20] MEDS ORDERED: amLODIPine 5 MG (NORVASC) TAB PO SCH (09:00)
--- NOTE | 2017-04-20 09:26 | Discharge Summary ---
Diagnosis/Chief Complaint Date of Admission Apr 17, 2017 at 09:55 Date of Discharge Admission Diagnosis Admission Diagnosis SIRS URINARY TRACT INFECTION (HX OF ECOLI) HYPERTENSION CONFUSION ESOPHAGEAL REFLUX Reason Hospital Visit PT IS AN 86 Y/O FEMALE WHO IS KNOWN TO ME FROM CLINIC. SHE HAS HISTORY OF RECURRENT URINARY TRACT INFECTIONS AND HAS BEEN SEEN AT [facility] FOR HER RECURRENT INFECTIONS. PER HER DAUGHTER, SHAILA WAS ACTING LIKE SHE FELT FINE ON THURSDAY AND WENT OUT TO EAT WITH FRIENDS. SHE APPARENTLY STARTED TO HAVE CHILLS AND THEN WAS FEELING EVEN WORSE LAST NIGHT AND EARLY THIS MORNING. SHE HAD A HIGH FEVER LAST NIGHT AND EARLY THIS MORNING AND PRESENTED TO THE ER DUE TO CONFUSION AND ACUTE WORSENING OF HER ILLNESS. Discharge Summary Discharge Physical Examination Allergies: Coded Allergies: No Known Drug Allergies (Verified , 07/16/16) Vitals & I&Os Vital Signs Date Time Temp Pulse Resp B/P (MAP) Pulse Ox O2 Delivery O2 Flow Rate FiO2 04/20/17 08:42 97.7 66 20 148/72 (97) 95 Room Air General Appearance: Alert, Oriented X3, Cooperative HEENT: Atraumatic, PERRLA Respiratory: Clear to Auscultation Cardiovascular: Regular Rate Abdominal: Normal Bowel Sounds, Soft Extremities: No Clubbing, No Cyanosis Skin: No Rashes, No Breakdown Neuro: Strength at 5/5 X4 Ext, Cranial Nerves 3-12 NL Psych/Mental Status: Mental Status NL, Mood NL Hospital Course SIRS URINARY TRACT INFECTION (HX OF ECOLI) HYPERTENSION CONFUSION ESOPHAGEAL REFLUX SIRS WITH URINARY TRACT INFECTION (HX OF ECOLI) - PT'S LAST POSITIVE CULTURE WAS IN OCTOBER 2016 AND ECOLI WAS FOUND AND SENSITIVE TO ROCEPHIN - CONTINUE WITH CURRENT RX FOR ROCEPHIN DAILY. WAIT ON CULTURE REPORT. HYPERTENSION - MONITOR PRESSURE - RESUME HOME MEDICATIONS. CONFUSION - DUE TO URINARY TRACT INFECTION. MONITOR SYMPTOMS. ESOPHAGEAL REFLUX - RESTART PROTONIX. ANTICIPATE PT TO BE IN HOSPITAL FOR THE NEXT 48 - 72 HOURS. DVT PROPHYLAXIS WITH LOVENOX GI PROPHYLAXIS WITH PPI Discharge Instructions to patient/family Please see electronic discharge instructions given to patient. Discharge Medications Reviewed and agree with Discharge Medication list on patient's Discharge Instruction sheet Clinical Quality Measures DVT/VTE Risk/Contraindication: Risk Factor Score Per Nursin RFS Level Per Nursing on Admit: 3=High ALISON FERRELL MD Apr 20, 2017 09:26
[2017-04-20] MEDS ORDERED: SULF1TAB35 PO (09:29)
[2017-04-20] MEDS ORDERED: PHEN-826 PO (09:29)
[2017-04-20] MEDS ORDERED: ACID1TAB PO (09:29)
--- NOTE | 2017-04-20 09:31 | Discharge Inst-Complex ---
PDI Med Rec & Follow Up Appt. New Medications: Sulfamethoxazole/Trimethoprim (Bactrim Ds Tablet) 1 Each Tablet 1 EACH PO BID for 5 Days, #10 TAB L. Acidophilus/Bulgaricus (Floranex Tablet) 1 Each Tablet 1 TAB.CHEW PO AC for 30 Days, #90 TAB Phenazopyridine HCl (Phenazopyridine HCl) 100 Mg Tablet 100 MG PO TIDPC for 3 Days, #9 TAB Continued Medications: Amlodipine Besylate (Norvasc) 5 Mg Tablet 5 MG PO HS, TAB Aspirin (Aspirin EC) 81 Mg Tablet.dr 81 MG PO HS, TAB Pantoprazole Sodium (Pantoprazole Sodium) 40 Mg Tablet.dr 40 MG PO DAILY, TAB Zolpidem Tartrate (Zolpidem Tartrate) 5 Mg Tablet 5 MG PO HS PRN for SLEEP, TAB Prescription: Transmitted to Pharmacy Activity, Diet and PDI Resume Normal Activity: Yes Discharge Diet: Regular Diet Drink 6-8 Glasses of Fluid/Day: Yes Driving Instructions: No Driving for 24 Hours Return to The Hospital For: any concern for acute illness Symptoms to Reoprt to : Appetite Changes, Fever Over 101 Degrees F, Pain/ Pressure in Chest, Nausea/Vomiting, Shortness of Breath For Problems or Questions: Contact Your Physician, Go to Emergency Room Infection Signs and Symptoms: Temperature Above 101 F ALISON FERRELL MD Apr 20, 2017 09:31
== END 2017-04-20 10:27 | disposition home or self-care (01) | DRG 690 ==
LOC: EDUNIT# 07:56 → ER 07:58 → 4TH 09:55
PROVIDERS: ADMIT Family Medicine; ATTEND Family Medicine
DX: N30.01 Acute cystitis with hematuria (principal); R35.0 Frequency of micturition; R32 Unspecified urinary incontinence; R41.0 Disorientation, unspecified; B96.20 Unspecified Escherichia coli [E. coli] as the cause of diseases classified elsewhere; I10 Essential (primary) hypertension; K21.9 Gastro-esophageal reflux disease without esophagitis
CPT/HCPCS: 36415; 71010; 80053; 81000; 83605; 83735; 85007; 85025; 85027; 85610; 85730; 87040; 87077; 87088; 87186; 96365

== ENCOUNTER → 2017-11-13 | Outpatient (CLI) | payer MEDICARE ==
[~2017-11-13] MED LIST changes: +ACHD5005 PO; +ACID1TAB PO; +ASPI-983 PO; -HYDR-3812 PO; +PHEN-826 PO; +SULF1TAB35 PO
== END ==
LOC: RAD 12:56
PROVIDERS: ATTEND Internal Medicine Cardiovascular Disease
DX: I10 Essential (primary) hypertension (principal); E78.5 Hyperlipidemia, unspecified; R00.1 Bradycardia, unspecified; R55 Syncope and collapse
CPT/HCPCS: 93306

== ENCOUNTER 2019-02-01 19:19 | Inpatient (IN) | payer MEDICARE ==
[~2019-02-01] VITALS: Ht 162.5 cm; Wt 69.9 kg
[~2019-02-01 19:19] MED LIST changes: -AMLO5TAB2; +AMLO5TAB9
[2019-02-01] MEDS ORDERED: NS IV 1000 ML 1,000 ML IV SCH ×3 (19:35→23:15)
--- NOTE | 2019-02-01 19:42 | ED GU-Female ---
General Chief Complaint: - Urinary Stated Complaint: DX W/ UTI/HEADACHE/VOMITING/FEVER Nursing Triage Note: fever,chills, headache, nausea. treated for uti last dose abx today. Nursing Sepsis Screen: Possible Severe Sepsis Risk Source: patient, family (2 daughters) Exam Limitations: physical impairment (hard of hearing) History of Present Illness Date Seen by Provider: Feb 01, 2019 Time Seen by Provider: 19:27 Initial Comments The patient presents to ER by private conveyance with both of her daughters and chief complaint that she has been going downhill for the past weeks feeling malaise, fever, fatigue, body aches, occasional cough, dysuria. She was diagnosed with a bladder infection by Dr. Rosario outpatient and put on Macrobid. A few days later the culture result changed her to Keflex. She just finished her last dose today and is feeling worse. She's had some nausea and vomiting earlier today. She does not have a productive cough or history of lung disease or heart disease. No kidney problems. No back pain. She's been chilling all day during up in blankets. Took Tylenol at 1830, one hour prior to arrival. Allergies and Home Medications Allergies Coded Allergies: No Known Drug Allergies (Verified , 07/16/16) Home Medications Amlodipine Besylate 5 Mg Tablet, 5 MG PO HS, (Reported) Aspirin 81 Mg Tablet.dr, 81 MG PO HS, (Reported) Zolpidem Tartrate 5 Mg Tablet, 5 MG PO HS PRN for SLEEP, (Reported) Patient Home Medication List Home Medication List Reviewed: Yes Review of Systems Review of Systems Constitutional: chills, fever, malaise, weakness (fatigue) EENTM: ear discharge, ear pain Respiratory: cough; No phlegm; short of breath; No wheezing Cardiovascular: No chest pain, No edema, No Hx of Intervention, No palpitations Gastrointestinal: No abdominal pain, No constipation, No diarrhea Genitourinary: burning, dysuria; denies flank pain, denies hematuria Musculoskeletal: No back pain, No joint pain Past Eupacpk-Rlkkis-Rphsef Hx Patient Social History Alcohol Use: Denies Use Recreational Drug Use: No Smoking Status: Never a Smoker 2nd Hand Smoke Exposure: No Recent Foreign Travel: No Contact w/Someone Who Travel: No Recent Infectious Disease Expo: No Recent Hopitalizations: No Physical Abuse: No Sexual Abuse: No Mistreated: No Fear: No Immunizations Up To Date Tetanus Booster (TDap): Unknown Date of Pneumonia Vaccine: Feb 08, 2011 Date of Influenza Vaccine: Feb 16, 2017 Seasonal Allergies Seasonal Allergies: No Past Medical History Surgeries: Yes (CYST REMOVED FROM KNEE, CATARACTS) Gallbladder, Hysterectomy Respiratory: Yes Pneumonia Currently Using CPAP: No Currently Using BIPAP: No Cardiac: Yes Hypertension Neurological: No : No 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, 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 Sexually Transmitted Disease: No HIV/AIDS: No Genitourinary: Yes UTI-Chronic Gastrointestinal: No (RECTAL BLEEDING) Gastroesophageal Reflux, Diverticulosis, Polyps Musculoskeletal: No Endocrine: No HEENT: No Loss of Vision: Bilateral Hearing Impairment: Hard of Hearing Cancer: No Did You Recieve Any Treatments: No Psychosocial: No Integumentary: No Blood Disorders: No Adverse Reaction/Blood Tranf: No (N/A) Family Medical History Hypertension Physical Exam Vital Signs Vital Signs - First Documented 02/01/19 19:22 Temp 38.4 Pulse 105 Resp 18 B/P (MAP) 144/62 (89) Pulse Ox 96 O2 Delivery Room Air Capillary Refill : Less Than 3 Seconds Height, Weight, BMI Height: 5'5.00" Weight: 146lbs. 3.0oz. 66.786216pw; 25.00 BMI Method:Stated General Appearance: WD/WN, mild distress HEENT: PERRL/EOMI, normal ENT inspection, TMs normal; No pharynx normal (oropharynx mucosa is dry without erythema, exudate or swelling) Neck: non-tender, full range of motion, supple, normal inspection Cardiovascular: normal peripheral pulses, regular rate, rhythm, no edema Respiratory: chest non-tender, lungs clear, normal breath sounds, no respiratory distress, no accessory muscle use Gastrointestinal: normal bowel sounds, soft, tenderness (right lower quadrant without rebound tenderness, Rovsing sign or mesenteric signs. Negative for psoas sign. Left lower quadrant is also tender to palpation.) Extremities: normal range of motion, normal capillary refill Neurologic/Psychiatric: alert, normal mood/affect, oriented x 3 Focused Exam Lactate Level 02/01/19 19:45: Lactic Acid Level 2.38*H Lactic Acid Level Laboratory Tests Test 02/01/19 19:45 Lactic Acid Level 2.38 MMOL/L (0.50-2.00) *H Progress/Results/Core Measures Suspected Sepsis Recent Fever Within 48 Hours: Yes Infection Criteria Present: Documented Infection New/Unexplained Altered Menta: No Sepsis Screen: Possible Severe Sepsis Risk SIRS Temperature: Pulse: 105 Respiratory Rate: 18 Laboratory Tests 02/01/19 19:45: White Blood Count 14.1H Blood Pressure 144 /62 Mean: 89 02/01/19 19:45: Lactic Acid Level 2.38*H Laboratory Tests 02/01/19 19:45: Creatinine 0.82, INR Comment 0.9, Platelet Count 216, Total Bilirubin 0.3 Results/Orders Lab Results Laboratory Tests Test 02/01/19 19:45 Range/Units White Blood Count 14.1 H 4.3-11.0 10^3/uL Red Blood Count 4.69 4.35-5.85 10^6/uL Hemoglobin 13.4 11.5-16.0 G/DL Hematocrit 41 35-52 % Mean Corpuscular Volume 87 80-99 FL Mean Corpuscular Hemoglobin 29 25-34 PG Mean Corpuscular Hemoglobin Concent 33 32-36 G/DL Red Cell Distribution Width 14.9 H 10.0-14.5 % Platelet Count 216 130-400 10^3/uL Mean Platelet Volume 9.3 7.4-10.4 FL Neutrophils (%) (Auto) 93 H 42-75 % Lymphocytes (%) (Auto) 3 L 12-44 % Monocytes (%) (Auto) 3 0-12 % Eosinophils (%) (Auto) 2 0-10 % Basophils (%) (Auto) 0 0-10 % Neutrophils # (Auto) 13.1 H 1.8-7.8 X 10^3 Lymphocytes # (Auto) 0.4 L 1.0-4.0 X 10^3 Monocytes # (Auto) 0.4 0.0-1.0 X 10^3 Eosinophils # (Auto) 0.2 0.0-0.3 10^3/uL Basophils # (Auto) 0.0 0.0-0.1 10^3/uL Neutrophils % (Manual) 88 % Lymphocytes % (Manual) 1 % Monocytes % (Manual) 1 % Eosinophils % (Manual) 4 % Band Neutrophils 6 % Blood Morphology Comment NORMAL Prothrombin Time 13.0 12.2-14.7 SEC INR Comment 0.9 0.8-1.4 Activated Partial Thromboplast Time 29 24-35 SEC Urine Color YELLOW Urine Clarity CLEAR Urine pH 5 5-9 Urine Specific [place] 1.015 L 1.016-1.022 Urine Protein NEGATIVE NEGATIVE Urine Glucose (UA) NEGATIVE NEGATIVE Urine Ketones NEGATIVE NEGATIVE Urine Nitrite NEGATIVE NEGATIVE Urine Bilirubin NEGATIVE NEGATIVE Urine Urobilinogen NORMAL NORMAL MG/DL Urine Leukocyte Esterase 2+ H NEGATIVE Urine RBC (Auto) 2+ H NEGATIVE Urine RBC 2-5 H /HPF Urine WBC 0-2 /HPF Urine Squamous Epithelial Cells 2-5 /HPF Urine Crystals NONE /LPF Urine Bacteria TRACE /HPF Urine Casts NONE /LPF Urine Mucus NEGATIVE /LPF Urine Culture Indicated CULTURE PENDING Sodium Level 141 135-145 MMOL/L Potassium Level 4.0 3.6-5.0 MMOL/L Chloride Level 104 98-107 MMOL/L Carbon Dioxide Level 24 21-32 MMOL/L Anion Gap 13 5-14 MMOL/L Blood Urea Nitrogen 17 7-18 MG/DL Creatinine 0.82 0.60-1.30 MG/DL Estimat Glomerular Filtration Rate > 60 BUN/Creatinine Ratio 21 Glucose Level 114 H 70-105 MG/DL Lactic Acid Level 2.38 *H 0.50-2.00 MMOL/L Calcium Level 9.4 8.5-10.1 MG/DL Corrected Calcium 9.2 8.5-10.1 MG/DL Total Bilirubin 0.3 0.1-1.0 MG/DL Aspartate Amino Transf (AST/SGOT) 19 5-34 U/L Alanine Aminotransferase (ALT/SGPT) 18 0-55 U/L Alkaline Phosphatase 78 40-136 U/L Total Protein 7.1 6.4-8.2 GM/DL Albumin 4.2 3.2-4.5 GM/DL Micro Results Microbiology 02/01/19 Influenza Types A,B Antigen (MEGHAN) - Final, Complete My Orders Orders - NYDIA BERMEO Cbc With Automated Diff (02/01/19 19:35) Comprehensive Metabolic Panel (02/01/19 19:35) Blood Culture (02/01/19 19:35) Sputum Culture (02/01/19 19:35) Urinalysis (02/01/19 19:35) Urine Culture (02/01/19 19:35) Protime With Inr (02/01/19 19:35) Partial Thromboplastin Time (02/01/19 19:35) Chest 1 View, Ap/Pa Only (02/01/19 19:35) Ed Iv/Invasive Line Start (02/01/19 19:35) Ed Iv/Invasive Line Start (02/01/19 19:35) Vital Signs Adult Sepsis Patie Q15M (02/01/19 19:35) Ondansetron Injection (Zofran Injectio (02/01/19 19:45) O2 (02/01/19 19:35) Remove Rings In Anticipation O (02/01/19 19:35) Lactic Acid Analyzer (02/01/19 19:35) Influenza A And B Antigens (02/01/19 19:35) Ns Iv 1000 Ml (Sodium Chloride 0.9%) (02/01/19 19:35) Ceftriaxone For Iv Use (Rocephin For I (02/01/19 19:45) Ed Iv/Invasive Line Start (02/01/19 19:35) Ns Iv 1000 Ml (Sodium Chloride 0.9%) (02/01/19 19:35) Ketorolac Injection (Toradol Injection) (02/01/19 19:45) Manual Differential (02/01/19 19:45) Ct Abdomen/Pelvis W (02/01/19 20:28) Iohexol Injection (Omnipaque 350 Mg/Ml 1 (02/01/19 20:45) Received Contrast (Hold Metformin- Contr (02/01/19 20:45) Ns (Ivpb) (Sodium Chloride 0.9% Ivpb Bag (02/01/19 20:45) Medications Given in ED Current Medications Medications Dose Ordered Sig/Ronnie Route Start Time Stop Time Status Last Admin Dose Admin Ceftriaxone Sodium 1000 mg/ Sterile Water 10 ml @ 200 mls/hr ONCE ONCE IV 02/01/19 19:45 02/01/19 19:47 DC 02/01/19 20:07 200 MLS/HR Ketorolac Tromethamine 30 mg ONCE ONCE IVP 02/01/19 19:45 02/01/19 19:46 DC 02/01/19 19:46 30 MG Ondansetron HCl 4 mg PRN PRN IV 02/01/19 19:45 02/01/19 19:46 DC 02/01/19 19:46 4 MG Vital Signs/I&O 02/01/19 02/01/19 19:22 20:17 Temp 38.4 38.1 Pulse 105 95 Resp 18 16 B/P (MAP) 144/62 (89) 135/65 Pulse Ox 96 94 O2 Delivery Room Air Room Air Capillary Refill : Less Than 3 Seconds Blood Pressure Mean: 89 Progress Note #1: Time: 19:40 Progress Note No suprapubic tenderness after voiding on examination. She does have some right and left lower quadrant abdominal tenderness to palpation without any mesenteric signs. Septic workup, Toradol for her fever, headache and body aches, influenza swab, 2 L of fluid which would be 30 cc/kg and ceftriaxone for presumed urosepsis. The microbiology from her urinalysis is not available presently. X- ray chest for shortness of breath and reported cough. She is not coughing presently. Lung sounds are clear. Progress Note #2: Time: 20:28 Progress Note Urine is fairly unremarkable except for some microscopic hematuria. She is having right and left lower quadrant abdominal pain so we'll obtain a CT of the abdomen pelvis. White count elevated marginally so at 14,000 with an elevated lactate. Diagnostic Imaging Diagonstic Imaging: Xray Plain Films/CT/US/NM/MRI: chest Comments NAME: SHAILA HUYNH MED REC#: [id number] PT STATUS: REG ER : 1930 PHYSICIAN: NYDIA BERMEO MD ADMIT DATE: 02/01/19/ER Signed Date of Exam:02/01/19 CHEST 1 VIEW, AP/PA ONLY INDICATION: Pneumonia COMPARISON: 04/17/17 FINDINGS: Single view of the chest demonstrates stable cardiac enlargement. Chronic interstitial changes are seen bilaterally. There is no acute infiltrate, pneumothorax or effusion. Osseous structures normal. IMPRESSION: Cardiac enlargement with likely chronic interstitial infiltrates. Followup recommended. No obvious acute infiltrate seen. Dictated by: Dictated on workstation # [id number] Dict: 02/01/192005 Trans: 02/01/192011 ROSA M [id number] Interpreted by: TRUDY WISEMAN Electronically signed by: TRUDY WISEMAN 02/01/192011 Reviewed: Reviewed by Me Diagonstic Imaging: CT (with IV contrast) Plain Films/CT/US/NM/MRI: abdomen, pelvis Comments NAME: SHAILA HUYNH [facility] REC#: [id number] PT STATUS: REG ER : 1930 PHYSICIAN: NYDIA BERMEO MD ADMIT DATE: 02/01/19/ER Signed Date of Exam:02/01/19 CT ABDOMEN/PELVIS W PROCEDURE: CT abdomen and pelvis with contrast. TECHNIQUE: Multiple contiguous axial images were obtained through the abdomen and pelvis after administration of intravenous contrast. Auto Exposure Controls were utilized during the CT exam to meet ALARA standards for radiation dose reduction. INDICATION: Fever, chills, headache, abdominal pain COMPARISON: 03/12/2017 FINDINGS: Lung bases are clear. There is a new nonspecific pneumobilia primarily in the left hepatic bile ducts. There is some slight dilation of the common bile duct which is appropriate for the postcholecystectomy state. This may be iatrogenic. No obvious mass or choledocholithiasis is seen. Liver is otherwise unremarkable. The spleen, pancreas, adrenal glands, and kidneys are stable. Prominent bilateral UPJs are present. The ureters are otherwise unremarkable. Vascular structures and small bowel normal. There are several diverticuli of the sigmoid colon without diverticulitis. There is no significant constipation. There is no bowel obstruction, free air, or free fluid. There is a focal nonspecific gas bubbles seen within the urinary bladder. No bladder wall thickening or mass is seen. There is no lymphadenopathy. Osseous structures are age-appropriate. IMPRESSION: 1. Nonspecific pneumobilia 2. Status post cholecystectomy 3. Prominent UPJs. These have increased from the prior examination. No obvious renal inflammation identified. 4. Nonspecific gas bubbles seen within the lumen of the urinary bladder. 5. Diverticulosis of the sigmoid colon without diverticulitis. Dictated by: Dictated on workstation # [id number] Dict: 02/01/192100 Trans: 02/01/192119 [facility] [id number] Interpreted by: TRUDY WISEMAN Electronically signed by: TRUDY WISEMAN 02/01/192119 Reviewed: Reviewed by Me Consults Consults : Consulting Physician: ZHOU TAI DO Consults Notes Discuss the pneumobilia and urinary bladder gas bubbles and he feels that she h as an incompetent finger over the given her age and possible leftover gas There. He says that she's not tender up there and he would not pursue it. We discussed her history of diverticulosis and the gas bubbles in her urinary bladder and he thinks that she had a gas forming bacteria that could explain why they are still a little residual gas but is not sure why she would have the bilateral ureteral dilatation. Departure Communication (Admissions) Time/Spoke to Admitting Phy: 21:35 Discussed case lab imaging findings with Dr. Rosario and she agrees with plan and antibiotic choice. Impression Primary Impression: Urinary tract infection Qualified Codes: N30.01 - Acute cystitis with hematuria Additional Impression: Sepsis Qualified Codes: A41.9 - Sepsis, unspecified organism Disposition: ADMITTED INPATIENT Condition: Stable Admissions Decision to Admit Reason: Admit from ER (General) Decision to Admit/Date: Feb 01, 2019 Time/Decision to Admit Time: 21:30 Departure-Patient Inst. Referrals: ALISON ROSARIO MD (PCP/Family) Primary Care Physician NYDIA BERMEO Feb 01, 2019 19:42
[2019-02-01] MEDS ORDERED: ONDANSETRON 4 MG/2 ML (SDV) Z0FRAN IV PRN ×2 (19:45→23:15)
[2019-02-01] MEDS ORDERED: KETOROLAC 30 MG/ML VIAL IVP ONE (19:45)
[2019-02-01] MEDS ORDERED: cefTRIAXone FOR IV USE 1,000 MG in WATER (STERILE) FOR INJECTION 10 ML IV ONE (19:45)
[2019-02-01 19:53] LABS: BILIRUBIN,URINE NEGATIVE (NEGATIVE); CLARITY,URINE CLEAR; COLOR,URINE YELLOW; GLUCOSE, URINE (UA) NEGATIVE (NEGATIVE); KETONES,URINE NEGATIVE (NEGATIVE); LEUKOCYTE ESTERASE ,URINE 2+ (NEGATIVE); NITRITE,URINE NEGATIVE (NEGATIVE); PH,URINE 5 (5-9); PROTEIN,URINE NEGATIVE (NEGATIVE); UROBILINOGEN,URINE NORMAL (NORMAL)
[2019-02-01 20:05] LABS: BACTERIA,URINE TRACE /HPF; WBC,URINE 0-2 /HPF
[2019-02-01 20:06] LABS: BASOPHILS % (AUTO) 0 % (0-10); EOSINOPHILS # (AUTO) 0.2 10^3/uL (0.0-0.3); EOSINOPHILS % (AUTO) 2 % (0-10); HEMATOCRIT 41 % (35-52); HEMOGLOBIN 13.4 G/DL (11.5-16.0); LYMPHOCYTES # (AUTO) 0.4 X 10^3 (1.0-4.0); LYMPHOCYTES % (AUTO) 3 % (12-44); MEAN CORPUSCULAR HEMOGLOBIN 29 PG (25-34); MEAN CORPUSCULAR HGB CONC 33 G/DL (32-36); MEAN CORPUSCULAR VOLUME 87 FL (80-99); MEAN PLATELET VOLUME 9.3 FL (7.4-10.4); MONOCYTES # (AUTO) 0.4 X 10^3 (0.0-1.0); MONOCYTES % (AUTO) 3 % (0-12); NEUTROPHILS # (AUTO) 13.1 X 10^3 (1.8-7.8); NEUTROPHILS % (AUTO) 93 % (42-75); PLATELET COUNT 216 10^3/uL (130-400); RED CELL DISTRIBUTION WIDTH 14.9 % (10.0-14.5); WHITE BLOOD COUNT 14.1 10^3/uL (4.3-11.0)
[2019-02-01 20:11] LABS: INR 0.9 (0.8-1.4)
--- NOTE | 2019-02-01 20:12 | Diagnostic Imaging Report ---
INDICATION: Pneumonia COMPARISON: 04/17/17 FINDINGS: Single view of the chest demonstrates stable cardiac enlargement. Chronic interstitial changes are seen bilaterally. There is no acute infiltrate, pneumothorax or effusion. Osseous structures normal. IMPRESSION: Cardiac enlargement with likely chronic interstitial infiltrates. Followup recommended. No obvious acute infiltrate seen. Dictated by: Dictated on workstation # [id number]
[2019-02-01 20:17] LABS: ALANINE AMINOTRANSFERASE 18 U/L (0-55); ALBUMIN 4.2 GM/DL (3.2-4.5); ALKALINE PHOSPHATASE 78 U/L (40-136); BILIRUBIN,TOTAL 0.3 MG/DL (0.1-1.0); BUN/CREATININE RATIO 21; CALCIUM 9.4 MG/DL (8.5-10.1); CARBON DIOXIDE 24 MMOL/L (21-32); CHLORIDE 104 MMOL/L (98-107); CREATININE SERUM 0.82 MG/DL (0.60-1.30); GFR ESTIMATED > 60; GLUCOSE 114 MG/DL (70-105); SODIUM 141 MMOL/L (135-145); TOTAL PROTEIN 7.1 GM/DL (6.4-8.2)
[2019-02-01 20:42] LABS: BAND NEUTROPHILS 6 %; EOSINOPHILS % (MANUAL) 4 %; LYMPHOCYTES % (MANUAL) 1 %; MONOCYTES % (MANUAL) 1 %; NEUTROPHILS % (MANUAL) 88 %
[2019-02-01 20:43] LABS: RBC MORPH NORMAL
[2019-02-01] MEDS ORDERED: IOHEXOL 350 MG/ML 100 ML (OMNIPAQUE 350) VIAL IV ONE (20:45)
[2019-02-01] MEDS ORDERED: HOLD METFORMIN - RECEIVED CONTRAST 20 ML VIAL IV SCH (20:45)
[2019-02-01] MEDS ORDERED: NS 100 ML (IVPB) BAG IV ONE (20:45)
--- NOTE | 2019-02-01 21:13 | Diagnostic Imaging Report ---
PROCEDURE: CT abdomen and pelvis with contrast. TECHNIQUE: Multiple contiguous axial images were obtained through the abdomen and pelvis after administration of intravenous contrast. Auto Exposure Controls were utilized during the CT exam to meet ALARA standards for radiation dose reduction. INDICATION: Fever, chills, headache, abdominal pain COMPARISON: 03/12/2017 FINDINGS: Lung bases are clear. There is a new nonspecific pneumobilia primarily in the left hepatic bile ducts. There is some slight dilation of the common bile duct which is appropriate for the postcholecystectomy state. This may be iatrogenic. No obvious mass or choledocholithiasis is seen. Liver is otherwise unremarkable. The spleen, pancreas, adrenal glands, and kidneys are stable. Prominent bilateral UPJs are present. The ureters are otherwise unremarkable. Vascular structures and small bowel normal. There are several diverticuli of the sigmoid colon without diverticulitis. There is no significant constipation. There is no bowel obstruction, free air, or free fluid. There is a focal nonspecific gas bubbles seen within the urinary bladder. No bladder wall thickening or mass is seen. There is no lymphadenopathy. Osseous structures are age-appropriate. IMPRESSION: 1. Nonspecific pneumobilia 2. Status post cholecystectomy 3. Prominent UPJs. These have increased from the prior examination. No obvious renal inflammation identified. 4. Nonspecific gas bubbles seen within the lumen of the urinary bladder. 5. Diverticulosis of the sigmoid colon without diverticulitis. Dictated by: Dictated on workstation # [id number]
[2019-02-01 22:00] VITALS: BP 136/51
--- NOTE | 2019-02-01 22:00 | NUR ---
SHAILA HUYNH admitted to room 412-1, with an admitting diagnosis of UTI, sepsis, on 02/01/19 from ED via wheelchair, accompanied by family and staff.SHAILA HUYNH introduced to surroundings, call light, bed controls, phone, TV, temperature control, lights, meal times, smoking policy, visitor policy, side rail policy, bathrooms and showers. Patient Rights given to patient in the handbook. SHAILA HUYNH verbalizes understanding that [facility] is not responsible for the loss or damage to any personal effects or valuables that are kept in the patients posession during their hospitalization. .
[2019-02-01 23:00] VITALS: BP 109/61
[2019-02-01] MEDS ORDERED: ZOLPIDEM 5 MG (AMBIEN) TAB ONE (23:07)
[2019-02-01] MEDS ORDERED: LACTATED RINGERS 1,000 ML IV ONE (23:07)
[2019-02-01] MEDS ORDERED: ACETAMINOPHEN 500 MG TAB (TYLENOL) PO PRN (23:15)
[2019-02-01] MEDS ORDERED: KETOROLAC 15 MG/ML VIAL IVP PRN (23:15)
[2019-02-01] MEDS: LACTATED RINGERS 1,000 ML IV SCH (23:33)
[2019-02-02 04:10] VITALS: BP 125/65
[2019-02-02] MEDS: LACTATED RINGERS 1,000 ML IV SCH ×2 (06:02→20:16)
[2019-02-02 06:18] LABS: BASOPHILS % (AUTO) 0 % (0-10); EOSINOPHILS # (AUTO) 0.4 10^3/uL (0.0-0.3); EOSINOPHILS % (AUTO) 4 % (0-10); HEMATOCRIT 37 % (35-52); HEMOGLOBIN 11.8 G/DL (11.5-16.0); LYMPHOCYTES # (AUTO) 0.4 X 10^3 (1.0-4.0); LYMPHOCYTES % (AUTO) 4 % (12-44); MEAN CORPUSCULAR HEMOGLOBIN 29 PG (25-34); MEAN CORPUSCULAR HGB CONC 32 G/DL (32-36); MEAN CORPUSCULAR VOLUME 89 FL (80-99); MEAN PLATELET VOLUME 9.2 FL (7.4-10.4); MONOCYTES # (AUTO) 0.8 X 10^3 (0.0-1.0); MONOCYTES % (AUTO) 8 % (0-12); NEUTROPHILS % (AUTO) 85 % (42-75); PLATELET COUNT 188 10^3/uL (130-400); RED CELL DISTRIBUTION WIDTH 14.9 % (10.0-14.5); WHITE BLOOD COUNT 10.6 10^3/uL (4.3-11.0)
[2019-02-02 06:36] LABS: ALANINE AMINOTRANSFERASE 14 U/L (0-55); ALBUMIN 3.3 GM/DL (3.2-4.5); ALKALINE PHOSPHATASE 54 U/L (40-136); BILIRUBIN,TOTAL 0.5 MG/DL (0.1-1.0); BUN/CREATININE RATIO 18; CARBON DIOXIDE 23 MMOL/L (21-32); CHLORIDE 109 MMOL/L (98-107); CREATININE SERUM 0.79 MG/DL (0.60-1.30); GFR ESTIMATED > 60; GLUCOSE 107 MG/DL (70-105); POTASSIUM 4.4 MMOL/L (3.6-5.0); SODIUM 141 MMOL/L (135-145); TOTAL PROTEIN 5.4 GM/DL (6.4-8.2)
[2019-02-02 08:08] VITALS: BP 122/58
--- NOTE | 2019-02-02 08:35 | History & Physical ---
History of Present Illness History of Present Illness Reason for visit/HPI PT REPORTS THAT SHE HAS NOT BEEN FEELING WELL FOR ABOUT A MONTH. SHE REPORTS THAT SHE WAS TREATED FOR A UTI EARLIER THIS MONTH, BUT HAS NOT SEEMED TO RECOVER COMPLETELY. SHE REPORTS THAT SHE DID FEEL BETTER FOR ABOUT A WEEK THEN STARTED TO FEEL BAD AGAIN AND LAST NIGHT SHE HAD CHILLS AND SWEATS AND HER FAMILY BROUGHT HER OUT TO THE HOSPITAL FOR EVALUATION WHERE SHE WAS FOUND TO HAVE ANOTH ER URINARY TRACT INFECTION WITH MILD SEPSIS. Date of Admission Feb 01, 2019 at 21:35 Date Seen by a Provider: Feb 02, 2019 Time Seen by a Provider: 08:30 I consulted on this patient on 02/02/19 08:35 Attending Physician Alison Rosario MD Admitting Physician Alison Rosario MD Consult ZHOU TAI DO Allergies and Home Medications Allergies Coded Allergies: No Known Drug Allergies (Verified , 07/16/16) Home Medications Amlodipine Besylate 5 Mg Tablet, 5 MG PO HS, (Reported) Aspirin 81 Mg Tablet.dr, 81 MG PO HS, (Reported) Diclofenac Sodium 100 Gm Gel..gram., 2 GM TP QID APPLY TO AFFECTED JOINTS/TISSUE/BACK FOUR TIMES DAILY Prescribed by: ALISON ROSARIO on 02/04/19 0911 Lactobacillus Acidophilus/Pect 1 Each Capsule, 1 EACH PO TIDWM Prescribed by: ALISON ROSARIO on 02/04/19 0911 Levofloxacin 500 Mg Tablet, 500 MG PO DAILY Prescribed by: ALISON ROSARIO on 02/04/19 0911 Zolpidem Tartrate 5 Mg Tablet, 5 MG PO HS PRN for SLEEP, (Reported) Patient Home Medication List Home Medication List Reviewed: Yes Past Lhgvodj-Iankys-Vaclts Hx Past Med/Social Hx: Reviewed Nursing Past Med/Soc Hx, Reviewed and Corrections made Patient Social History Marrital Status: Living Status: LIVES IN OWN HOME BY HERSELF Employed/Student: retired Alcohol Use: Denies Use Recreational Drug Use: No Smoking Status: Never a Smoker 2nd Hand Smoke Exposure: No Physical Abuse Screen: No Sexual Abuse: No Recent Foreign Travel: No Contact w/other who traveled: No Recent Hopitalizations: No Recent Infectious Disease Expo: No Immunizations Up To Date Tetanus Booster (TDap): Unknown Date of Pneumonia Vaccine: Feb 01, 2018 Date of Influenza Vaccine: Feb 16, 2017 Seasonal Allergies Seasonal Allergies: No Past Medical History Surgeries: Gallbladder, Hysterectomy Currently Using CPAP: No Currently Using BIPAP: No Cardiac: Hypertension : No Reproductive: No Sexually Transmitted Disease: No HIV/AIDS: No Hysterectomy, Menopausal Genitourinary: UTI-Chronic Gastrointestinal: Gastroesophageal Reflux, Diverticulosis, Polyps Loss of Vision: Bilateral Hearing Impairment: Hard of Hearing Did You Recieve Any Treatments: No History of Blood Disorders: No Adverse Reaction to Blood Martinez: No (N/A) Family History Reviewed Nursing Family Hx Cancer of vagina G8 SISTER Diabetes mellitus 19 MOTHER G8 SISTER FH: breast cancer 19 MOTHER FH: cancer G8 SISTER FH: liver cancer 19 FATHER FH: lung cancer G8 BROTHER G8 BROTHER G8 BROTHER G8 BROTHER G8 BROTHER G8 BROTHER G8 BROTHER FH: pancreatic cancer G8 SISTER Hypertension Review of Systems Constitutional: chills, fever, malaise, weakness EENTM: No hoarseness, No throat pain Respiratory: No cough, No dyspnea on exertion, No short of breath Cardiovascular: No chest pain, No palpitations Gastrointestinal: abdominal pain (LLQ); No constipation, No diarrhea, No loss of appetite, No nausea, No vomiting Genitourinary: dysuria, frequency Musculoskeletal: No back pain, No muscle weakness Skin: no symptoms reported Psychiatric/Neurological: Denies Anxiety, Denies Depressed, Denies Weakness All Other Systems Reviewed Negative Unless Noted: Yes Physical Exam Vital Signs Vital Signs - First Documented 02/01/19 19:22 Temp 38.4 Pulse 105 Resp 18 B/P (MAP) 144/62 (89) Pulse Ox 96 O2 Delivery Room Air Capillary Refill : Less Than 3 Seconds Height, Weight, BMI Height: 5'5.00" Weight: 146lbs. 3.0oz. 66.690894vc; 26.47 BMI Method:Stated General Appearance: No Apparent Distress, WD/WN Eyes: Bilateral Eye Normal Inspection, Bilateral Eye PERRL, Bilateral Eye EOMI HEENT: PERRL/EOMI, Pharynx Normal Neck: Full Range of Motion, Non Tender, Supple Respiratory: Chest Non Tender, Lungs Clear, Normal Breath Sounds, No Accessory Muscle Use Cardiovascular: Regular Rate, Rhythm Gastrointestinal: Normal Bowel Sounds, Soft, Tenderness Rectal: Deferred Back: Normal Inspection, No CVA Tenderness, No Vertebral Tenderness Extremity: Normal Capillary Refill, Non Tender, No Calf Tenderness, No Pedal Edema Neurologic/Psychiatric: Alert, Oriented x3, No Motor/Sensory Deficits, Normal 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 - SUPPORTIVE CARE AT THIS TIME URINARY TRACT INFECTION - IV ANTIBIOTICS - ROCEPHIN - CONTINUE UNTIL WE FIND OUT WHAT THE ORGANISM IS FROM CULTURE REPORT. LEUKOCYTOSIS - RESOLVED AFTER FLUIDS HYPERTENSION - RESUME HOME REGIMEN ABDOMINAL PAIN - ABDOMINAL PAIN IMPROVED AFTER FLUIDS LAST NIGHT - BUT NOT RESOLVED. Admission Diagnosis SIMPLE SEPSIS WITH LACTIC ACIDOSIS URINARY TRACT INFECTION LEUKOCYTOSIS HYPERTENSION ABDOMINAL PAIN Admission Status: Inpatient Order (span 2 midnights) Reason for Inpatient Admission: ADMISSION FOR SIMPLE SEPSIS, URINARY TRACT INFECTION - WILL REQUIRE AT LEAST 48 HOURS OF ANTIBITOICS IN HOSPITAL Clinical Quality Measures DVT/VTE Risk/Contraindication: Risk Factor Score Per Nursin RFS Level Per Nursing on Admit: 4+=Very High ALISON ROSARIO MD Feb 02, 2019 08:35
--- NOTE | 2019-02-02 10:23 | Diagnostic Imaging Report ---
INDICATION: Urinary tract infection, sepsis, rule out pneumonia. TECHNIQUE: Two view chest at 10:02 AM. CORRELATION STUDY: 02/01/2019. FINDINGS: The heart size is at the upper limits of normal. The vasculature is overall within normal limits. Increased density at the lung bases appears unchanged and likely of no significance. A definitive consolidating infiltrate is not suggested. No significant pleural effusion. The visualized osseous structures are unremarkable. IMPRESSION: Negative for acute abnormality in the chest. Dictated by: Dictated on workstation # [id number]
[2019-02-02] MEDS: ENOXAPARIN 40 MG/0.4 ML (LOVENOX) SYR SC SCH (11:05)
--- NOTE | 2019-02-02 11:41 | NUR ---
Pt is Protestant and will take Communion tomorrow when she feels better.
[2019-02-02 12:00] VITALS: BP 112/53
[2019-02-02 16:20] VITALS: BP 127/59
[2019-02-02] MEDS: LACTOBACILLUS ACIDOPHILUS (PROBIOTIC) CAPSULE PO SCH (17:44)
--- NOTE | 2019-02-02 18:26 | NUR ---
LAIMNE SMITH PRECEPTOR FOR DEBBIE SMITH ON THIS PT. CHARTING REVIEWED.
[2019-02-02 19:50] VITALS: BP 143/63
[2019-02-02] MEDS: ZOLPIDEM 5 MG (AMBIEN) TAB PO PRN (20:15)
[2019-02-02] MEDS: amLODIPine 5 MG (NORVASC) TAB PO SCH (20:15)
[2019-02-02] MEDS ORDERED: cefTRIAXone 1,000 MG/SWFI 10 ML IV PUSH IV SCH ×2 (21:00)
[2019-02-03 00:09] VITALS: BP 108/50
[2019-02-03] MEDS: LACTOBACILLUS ACIDOPHILUS (PROBIOTIC) CAPSULE PO SCH ×3 (05:24→17:39)
[2019-02-03 05:32] LABS: HEMOGLOBIN 11.9 G/DL (11.5-16.0); MEAN PLATELET VOLUME 9.2 FL (7.4-10.4)
[2019-02-03 06:00] LABS: ALANINE AMINOTRANSFERASE 13 U/L (0-55); ALBUMIN 3.3 GM/DL (3.2-4.5); ALKALINE PHOSPHATASE 60 U/L (40-136); BILIRUBIN,TOTAL 0.3 MG/DL (0.1-1.0); BUN/CREATININE RATIO 13; CALCIUM 8.3 MG/DL (8.5-10.1); CARBON DIOXIDE 26 MMOL/L (21-32); CHLORIDE 111 MMOL/L (98-107); CREATININE SERUM 0.79 MG/DL (0.60-1.30); GFR ESTIMATED > 60; GLUCOSE 99 MG/DL (70-105); POTASSIUM 4.1 MMOL/L (3.6-5.0); SODIUM 143 MMOL/L (135-145); TOTAL PROTEIN 5.7 GM/DL (6.4-8.2)
[2019-02-03 08:21] VITALS: BP 139/60
[2019-02-03] MEDS: LACTATED RINGERS 1,000 ML IV SCH ×2 (08:41→21:03)
[2019-02-03] MEDS: ENOXAPARIN 40 MG/0.4 ML (LOVENOX) SYR SC SCH (08:41)
--- NOTE | 2019-02-03 08:47 | Progress Note ---
Subjective Date Seen by a Provider: Feb 03, 2019 Time Seen by a Provider: 08:50 Subjective/Events-last exam PT REPORTS THAT SHE IS FEELING MUCH BETTER TODAY. SHE STATES THAT SHE WOULD LIKE TO GO HOME. SHE ALSO REPORTS THAT SHE HAS URINARY INCONTINENCE AND THIS IS WORSE THAN HER USUAL INCONTINENCE. HER DAUGHTER REPORTS THAT HER MOM IS HAVING LESS BACK PAIN NOW THAT SHE HAS A BETTER BED. Review of Systems General: Fatigue HEENT: No Head Aches Pulmonary: No Dyspnea, No Cough Cardiovascular: No: Chest Pain, Palpitations Gastrointestinal: No: Nausea, Abdominal Pain Genitourinary: No Dysuria; Frequency, Incontinence Musculoskeletal: back pain Neurological: Weakness; No: Confusion Focused Exam Lactate Level 02/01/19 19:45: Lactic Acid Level 2.38*H 02/01/19 21:55: Lactic Acid Level 1.85 Objective Exam Last Set of Vital Signs Vital Signs Date Time Temp Pulse Resp B/P (MAP) Pulse Ox O2 Delivery O2 Flow Rate FiO2 02/03/19 08:21 36.7 62 20 139/60 (86) 92 Room Air Capillary Refill : Less Than 3 Seconds I&O Intake and Output 02/03/19 00:00 Intake Total 1490 ml Output Total 1750 ml Balance -260 ml Intake Oral 1490 ml Output Urine Total 1750 ml Bladder Scan Volume Amount 280 ml 80 ml General: Alert, Oriented X3, Cooperative, No Acute Distress HEENT: Atraumatic Neck: Supple Lungs: Clear to Auscultation, Normal Air Movement Heart: Regular Rate, Normal S1, Normal S2 Abdomen: Normal Bowel Sounds, Soft, No Tenderness Skin: No Rashes Neuro: Cranial Nerves 3-12 NL Psych/Mental Status: Mental Status NL, Mood NL Results Lab Laboratory Tests 02/03/19 05:05: White Blood Count 6.0, Red Blood Count 4.09L, Hemoglobin 11.9, Hematocrit 36, Mean Corpuscular Volume 88, Mean Corpuscular Hemoglobin 29, Mean Corpuscular Hemoglobin Concent 33, Red Cell Distribution Width 15.0H, Platelet Count 191, Mean Platelet Volume 9.2, Sodium Level 143, Potassium Level 4.1, Chloride Level 111H, Carbon Dioxide Level 26, Anion Gap 6, Blood Urea Nitrogen 10, Creatinine 0.79, Estimat Glomerular Filtration Rate > 60, BUN/Creatinine Ratio 13, Glucose Level 99, Calcium Level 8.3L, Corrected Calcium 8.9, Total Bilirubin 0.3, Aspartate Amino Transf (AST/SGOT) 18, Alanine Aminotransferase (ALT/SGPT) 13, Alkaline Phosphatase 60, Total Protein 5.7L, Albumin 3.3 Microbiology 02/01/19 Blood Culture - Preliminary, Resulted No growth 02/01/19 Influenza Types A,B Antigen ([facility]) - Final, Complete 02/01/19 Urine Culture - Preliminary, Resulted Pseudomonas aeruginosa Assessment/Plan Assessment/Plan Assess & Plan/Chief Complaint SIMPLE SEPSIS WITH LACTIC ACIDOSIS URINARY TRACT INFECTION - PSEUDOMONAL INFECTION LEUKOCYTOSIS HYPERTENSION ABDOMINAL PAIN BACK PAIN SIMPLE SEPSIS WITH LACTIC ACIDOSIS - PT STARTED ON IV FLUIDS PER PROTOCOL, LABS IMPROVED, FLUIDS DECREASED. - SUPPORTIVE CARE AT THIS TIME URINARY TRACT INFECTION - PSEUDOMONAS - IV ANTIBIOTICS -CHANGED TO LEVAQUIN THE ORGANISM GROWING OUT IS PSEUDOMONAS LEUKOCYTOSIS - RESOLVED AFTER FLUIDS HYPERTENSION - RESUMED HOME REGIMEN - AMLODIPINE ABDOMINAL PAIN - ABDOMINAL PAIN IMPROVED AFTER FLUIDS LAST NIGHT - BUT NOT RESOLVED. URINARY INCONTINENCE - MULTIFACTORIAL - ON HIGH FLOW OF FLUIDS DUE TO SEPSIS, AND PT HAS ADVANCED AGE WELL WITH PELVIC FLOOR LAXITY, PT TO USE PADS OR PULL-UP BRIEFS BACK PAIN - PT USING KETOROLAC WITH IMPROVED PAIN ANTICIPATE DISCHARGE TO HOME TOMORROW Clinical Quality Measures DVT/VTE Risk/Contraindication: Risk Factor Score Per Nursin RFS Level Per Nursing on Admit: 4+=Very High ALISON FERRELL MD Feb 03, 2019 08:47
[2019-02-03] MEDS ORDERED: LEVOFLOXACIN 500 MG/100 ML IV 100 ML IV NR (09:00)
--- NOTE | 2019-02-03 09:41 | NUR ---
provided prayer and Communion.
--- NOTE | 2019-02-03 10:36 | Physical Therapy Evaluation ---
PT Evaluation-General Medical Diagnosis Admission Date Feb 01, 2019 at 21:35 Medical Diagnosis: UTI/sepsis Onset Date: Feb 01, 2019 Therapy Diagnosis Therapy Diagnosis: debility/weakness Height/Weight Height (Feet): 5 Height (Inches): 5.00 Weight (Pounds): 146 Weight (Ounces): 3.0 Precautions Precautions/Isolations: Fall Prevention Referral Physician: Isidra Reason for Referral: Evaluation/Treatment Medical History Pertinent Medical History: GERD, HTN Current History ER via family secondary to malaise,fever,fatigue Reviewed History: Yes Social History Home: Single Level Current Living Status: Alone Prior/Core FIM Prior Level of Function Therapy Code Descriptions/Definitions Functional Power Measure: 0=Not Assessed/NA 4=Minimal Assistance 1=Total Assistance 5=Supervision or Setup 2=Maximal Assistance 6=Modified Power 3=Moderate Assistance 7=Complete Power Therapy Quality Codes: 6 Independent with activity with or without an assistive device 5 Patient requires set up or clean up by helper. Patient completes activity by themselves 4 Supervision or touching assist (CGA). [place] provide cues , steadying assist 3 The helper provides less than half the effort to complete the activity 2 The helper provides more than half the effort to complete the activity 1 Dependent. The helper does all the effort to complete an activity 7 Patient refused to complete or attempt activity 9 The patient did not perform the activity before the current illness or injury 88 Not attempted due to Medical conditions or safety concerns Functional Abilities and Goals: Independent: Patient completed the activities by him/herself, with or without an assistive device, with no assistance from a helper. Needed Some Help: Patient needed partial assistance from another person to complete activities. Dependent: A helper completed the activities for the patient. Unknown: Not Applicable: Bed Mobility: 7 Transfers (B,C,W/C) (FIM): 7 Gait: 7 Stairs: 7 Indoor Mobility (Ambulation): Independent Stairs: Independent Prior Devices Use: None PT Evaluation-Current Subjective Patient reports she is up independently in room. Family present. Objective Patient Orientation: Normal For Age Problem Solving: Good Attachments: IV ROM/Strength ROM Lower Extremities bilateral LE WFL Strength Lower Extremities 4+/5 grossly bilateral LE Integumentary/Posture Integumentary refer to nursing notes Bowel Incontinence: No Bladder Incontinence: No Posture WFL Neuromuscular (Tone, Coordination, Reflexes) grossly intact Sensory Vision: Functional Hearing: Functional Sensation Right Lower Extremit: Intact Sensation Left Lower Extremity: Intact Transfers Therapy Code Descriptions/Definitions Functional Power Measure: 0=Not Assessed/NA 4=Minimal Assistance 1=Total Assistance 5=Supervision or Setup 2=Maximal Assistance 6=Modified Power 3=Moderate Assistance 7=Complete Power Transfers (B, C, W/C) (FIM): 7 Scootin Sit to/from Stand: 7 Gait Mode of Locomotion: Walk Anticipated Mode of Locomotion: Walk Gait (FIM): 7 Distance (FIM): 3=150 ft Distance: 375' Gait Level of Assist: 7 Gait Assistive Device: None Comments/Gait Description safe and functional gait sequence with no deviation Balance Sitting Static: Normal Sitting Dynamic: Normal Standing Static: Normal Standing Dynamic: Normal Assessment/Needs 88 y.o. female, is currently independent with all gross motor skills safely and does not require skilled therapy intervention. Thank you for this referral. Rehab Potential: Fair PT Plan Treatment/Plan Treatment Plan: Discontinue PT, goals met Treatment Plan: Other Treatment Duration: Feb 03, 2019 Frequency: 1 time per week Estimated Hrs Per Day: .25 hour per day Discharge Recommendations Therapy Discharge Recommendati: Other, See Comments (home independently) Time/GCodes Time In: 1000 Time Out: 1015 Total Billed Treatment Time: 15 Total Billed Treatment 1 visit EVModC 15min MIRI VÁZQUEZ PT Feb 03, 2019 10:36
[2019-02-03 15:56] VITALS: BP 137/70
[2019-02-03] MEDS ORDERED: CALCIUM CARBONATE 500 MG (TUMS) TAB.CHEW ONE (16:56)
[2019-02-03] MEDS ORDERED: CALCIUM CARBONATE 500 MG (TUMS) TAB.CHEW PO PRN (17:00)
[2019-02-03 19:53] VITALS: BP 131/68
[2019-02-03] MEDS ORDERED: FAMOTIDINE 20 MG (PEPCID) TABLET PO SCH ×2 (21:00)
[2019-02-03] MEDS: amLODIPine 5 MG (NORVASC) TAB PO SCH (21:02)
[2019-02-03] MEDS: ZOLPIDEM 5 MG (AMBIEN) TAB PO PRN (21:02)
[2019-02-03 23:54] VITALS: BP 152/71
[2019-02-04] MEDS: LACTOBACILLUS ACIDOPHILUS (PROBIOTIC) CAPSULE PO SCH (05:52)
[2019-02-04 08:00] VITALS: BP 152/75
[2019-02-04] MEDS: ENOXAPARIN 40 MG/0.4 ML (LOVENOX) SYR SC SCH (08:48)
[2019-02-04] MEDS ORDERED: LEVOFLOXACIN 250 MG/D5W 50 ML (PRE-MIX) IV SCH (09:00)
[2019-02-04] MEDS ORDERED: DICL100G31 TP (09:11)
[2019-02-04] MEDS ORDERED: LEVO500T80 PO (09:11)
[2019-02-04] MEDS ORDERED: LACT1CAP7 PO (09:11)
--- NOTE | 2019-02-04 09:13 | Discharge Inst-Complex ---
PDI Reconcile Patient Problems Problems Reviewed?: Yes Med Rec & Follow Up Appt. New Medications: Diclofenac Sodium (Diclofenac Sodium) 100 Gm Gel..gram. 2 GM TP QID, #3 TUBE 1 Refill APPLY TO AFFECTED JOINTS/TISSUE/BACK FOUR TIMES DAILY Levofloxacin (Levofloxacin) 500 Mg Tablet 500 MG PO DAILY, #5 TAB Lactobacillus Acidophilus/Pect (Acidophilus-Pectin Capsule) 1 Each Capsule 1 EACH PO TIDWM, #90 CAP Continued Medications: Amlodipine Besylate (Norvasc) 5 Mg Tablet 5 MG PO HS, TAB Aspirin (Aspirin EC) 81 Mg Tablet.dr 81 MG PO HS, TAB Zolpidem Tartrate (Zolpidem Tartrate) 5 Mg Tablet 5 MG PO HS PRN for SLEEP, TAB Prescription: Transmitted to Pharmacy Activity, Diet and PDI Resume Normal Activity: Yes Discharge Diet: Regular Diet Diet for 24 Hours: No Alcohol Diet After 24 Hours: Resume Home Diet Drink 6-8 Glasses of Fluid/Day: Yes Driving Instructions: No Driving for 24 Hours Return to The Hospital For: CHEST PAIN, UNUSUAL SHORTNESS OF BREATH, OR ANY CONCERN FOR LIFETHREATENING ILLNESS OR INJURY Symptoms to Reoprt to : Appetite Changes, Fever Over 101 Degrees F, Pain/Pressure in Chest, Diarrhea(Persistant), Shortness of Breath For Problems or Questions: Contact Your Physician, Go to Emergency Room Infection Signs and Symptoms: Temperature Above 101 F ALISON FERRELL MD Feb 04, 2019 09:13
[2019-02-04 10:35] VITALS: BP 152/75
--- NOTE | 2019-02-04 10:35 | NUR ---
AMINASHAILA A demonstrates understanding of discharge instructions and accurately returns instructions upon questioning. Copy of Post-Discharge Instructions and Medication Discharge Instructions given to PT. SHAILA HUYNH A is able to manage continuing needs after discharge. Patients belongings returned to PT. Skin dry and intact; no breakdown noted. Patient discharged from [facility] on 02/04/19 at 1035. SHAILA HUYNH A left floor via , accompanied by STAFF.
--- NOTE | 2019-02-04 10:46 | Discharge Summary ---
Diagnosis/Chief Complaint Date of Admission Feb 01, 2019 at 21:35 Date of Discharge Discharge Date: Feb 04, 2019 Discharge Time: 1000 Admission Diagnosis Admission Diagnosis SIMPLE SEPSIS WITH LACTIC ACIDOSIS URINARY TRACT INFECTION - PSEUDOMONAL INFECTION LEUKOCYTOSIS HYPERTENSION ABDOMINAL PAIN Discharge Diagnosis SIMPLE SEPSIS WITH LACTIC ACIDOSIS URINARY TRACT INFECTION - PSEUDOMONAL INFECTION LEUKOCYTOSIS HYPERTENSION ABDOMINAL PAIN BACK PAIN Reason Hospital Visit PT REPORTS THAT SHE HAS NOT BEEN FEELING WELL FOR ABOUT A MONTH. SHE REPORTS THAT SHE WAS TREATED FOR A UTI EARLIER THIS MONTH, BUT HAS NOT SEEMED TO RECOVER COMPLETELY. SHE REPORTS THAT SHE DID FEEL BETTER FOR ABOUT A WEEK THEN STARTED TO FEEL BAD AGAIN AND LAST NIGHT SHE HAD CHILLS AND SWEATS AND HER FAMILY BROUGHT HER OUT TO THE HOSPITAL FOR EVALUATION WHERE SHE WAS FOUND TO HAVE ANOTHER URINARY TRACT INFECTION WITH MILD SEPSIS. Discharge Summary Discharge Physical Examination Allergies: Coded Allergies: No Known Drug Allergies (Verified , 07/16/16) Vitals & I&Os Vital Signs Date Time Temp Pulse Resp B/P (MAP) Pulse Ox O2 Delivery O2 Flow Rate FiO2 02/04/19 08:00 36.8 57 18 152/75 (100) 95 Room Air General Appearance: Alert, Oriented X3, Cooperative, No Acute Distress HEENT: Atraumatic, PERRLA, Mucous Memb Moist/[place] Respiratory: Clear to Auscultation, Normal Air Movement Cardiovascular: Regular Rate, Normal S1, Normal S2 Abdominal: Normal Bowel Sounds, Soft, No Tenderness Extremities: No Clubbing, No Edema Skin: No Rashes, No Significant Lesion Neuro: Strength at 5/5 X4 Ext, Cranial Nerves 3-12 NL Psych/Mental Status: Mental Status NL, Mood NL Hospital Course Was the Problem List Reviewed?: Yes SIMPLE SEPSIS WITH LACTIC ACIDOSIS URINARY TRACT INFECTION - PSEUDOMONAL INFECTION LEUKOCYTOSIS HYPERTENSION ABDOMINAL PAIN BACK PAIN SIMPLE SEPSIS WITH LACTIC ACIDOSIS - PT STARTED ON IV FLUIDS PER PROTOCOL, LABS IMPROVED, FLUIDS DECREASED. - SUPPORTIVE CARE AT THIS TIME URINARY TRACT INFECTION - PSEUDOMONAS - IV ANTIBIOTICS -CHANGED TO LEVAQUIN THE ORGANISM GROWING OUT IS PSEUDOMONAS LEUKOCYTOSIS - RESOLVED AFTER FLUIDS HYPERTENSION - RESUMED HOME REGIMEN - AMLODIPINE ABDOMINAL PAIN - ABDOMINAL PAIN IMPROVED AFTER FLUIDS LAST NIGHT - BUT NOT RESOLVED. URINARY INCONTINENCE - MULTIFACTORIAL - ON HIGH FLOW OF FLUIDS DUE TO SEPSIS, AND PT HAS ADVANCED AGE WELL WITH PELVIC FLOOR LAXITY, PT TO USE PADS OR PULL-UP BRIEFS BACK PAIN - PT USING KETOROLAC WITH IMPROVED PAIN ANTICIPATE DISCHARGE TO HOME TOMORROW Pending Labs Laboratory Tests 02/04/19 05:34: Glucometer 102 Discharge Condition at discharge IMPROVED Instructions to patient/family Please see electronic discharge instructions given to patient. Discharge Medications Reviewed and agree with Discharge Medication list on patient's Discharge Instruction sheet Medication List: Active Scripts Active Diclofenac Sodium 100 Gm Gel..gram. 2 Gm TP QID APPLY TO AFFECTED JOINTS/TISSUE/BACK FOUR TIMES DAILY Levofloxacin 500 Mg Tablet 500 Mg PO DAILY Acidophilus-Pectin Capsule (Lactobacillus Acidophilus/Pect) 1 Each Capsule 1 Each PO TIDWM Reported Aspirin EC (Aspirin) 81 Mg Tablet.dr 81 Mg PO HS Zolpidem Tartrate 5 Mg Tablet 5 Mg PO HS PRN Norvasc (Amlodipine Besylate) 5 Mg Tablet 5 Mg PO HS Clinical Quality Measures DVT/VTE Risk/Contraindication: Risk Factor Score Per Nursin RFS Level Per Nursing on Admit: 4+=Very High ALISON FERRELL MD Feb 04, 2019 10:46
== END 2019-02-04 10:35 | disposition home or self-care (01) | DRG 872 ==
LOC: ER 19:19 → EDUNIT# 19:19 → 4TH 21:35
PROVIDERS: ADMIT Family Medicine; ATTEND Family Medicine
DX: A41.9 Sepsis, unspecified organism (principal); N30.01 Acute cystitis with hematuria; E87.2 Acidosis; B96.5 Pseudomonas (aeruginosa) (mallei) (pseudomallei) as the cause of diseases classified elsewhere; I10 Essential (primary) hypertension; K21.9 Gastro-esophageal reflux disease without esophagitis; K57.90 Diverticulosis of intestine, part unspecified, without perforation or abscess without bleeding; H91.90 Unspecified hearing loss, unspecified ear; D72.829 Elevated white blood cell count, unspecified; R33.8 Other retention of urine; Z86.010 Personal history of colon polyps; Z87.01 Personal history of pneumonia (recurrent)
CPT/HCPCS: 36415; 71045; 71046; 74177; 80053; 81000; 82962; 83605; 85007; 85025; 85027; 85610; 85730; 87040; 87077; 87088; 87186; 87804; 96361; 96374; 96375

== ENCOUNTER 2019-03-07 18:57 | Emergency (ER) | payer MEDICARE ==
[~2019-03-07] VITALS: Ht 165.1 cm; Wt 68.2 kg
[~2019-03-07 18:57] MED LIST changes: +DICL100G31 TP; +LACT1CAP7 PO; +LEVO500T80 PO
--- NOTE | 2019-03-07 19:34 | ED Fall/Injury ---
General Chief Complaint: Trauma-Non Activation Stated Complaint: HEAD LAC,FALL Nursing Triage Note: Pt amb to triage with c/o fall. 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 Controlled bleeding noted to dorsal, Lt scalp. Pt arrives with drsg and ice pack held to area. Non tender upon palpation to c-spine. Denies neck or back pain. Denies loc. Reports to take 81mg ASA qday. AROM noted. Daughter @ side. Source: patient, family (daughter) Exam Limitations: no limitations History of Present Illness Date Seen by Provider: Mar 07, 2019 Time Seen by Provider: 19:11 Initial Comments Patient presents to ER by private conveyance with chief complaint of a fall while stepping backwards off of a bottom rung of a stepladder. She struck her head against a coffee table. She does not think she had loss of consciousness. She called her daughter who immediately came over and helped put an ice pack on her and back of her head and bring her to the ER. She takes aspirin daily but no blood thinners. She is not having any significant pain right now. She has not taken anything for pain and does not want anything. She denies nausea or vomiting. She denies blindness numbness tingling paresthesias or other changes. She is able to walk under her own power. Unknown last tetanus vaccination. Allergies and Home Medications Allergies Coded Allergies: No Known Drug Allergies (Verified , 07/16/16) Home Medications Amlodipine Besylate 5 Mg Tablet, 5 MG PO HS, (Reported) Aspirin 81 Mg Tablet.dr, 81 MG PO HS, (Reported) Diclofenac Sodium 100 Gm Gel..gram., 2 GM TP QID APPLY TO AFFECTED JOINTS/TISSUE/BACK FOUR TIMES DAILY Prescribed by: ALISON FERRELL on 02/04/19910 Lactobacillus Acidophilus/Pect 1 Each Capsule, 1 EACH PO TIDWM Prescribed by: ALISON FERRELL on 02/04/19910 Levofloxacin 500 Mg Tablet, 500 MG PO DAILY Prescribed by: ALISON FERRELL on 02/04/19910 Zolpidem Tartrate 5 Mg Tablet, 5 MG PO HS PRN for SLEEP, (Reported) Patient Home Medication List Home Medication List Reviewed: Yes Review of Systems Review of Systems Constitutional: No chills, No diaphoresis Eyes: Denies Blindness, Denies Blurred Vision Ears, Nose, Mouth, Throat: denies ear pain, denies ear discharge Respiratory: No cough, No dyspnea on exertion Cardiovascular: No chest pain, No edema Gastrointestinal: No abdominal pain, No nausea, No vomiting Genitourinary: No discharge, No dysuria Past Udpdnlz-Fbawzl-Quwyzr Hx Patient Social History Alcohol Use: Denies Use Recreational Drug Use: No Smoking Status: Never a Smoker 2nd Hand Smoke Exposure: No Recent Foreign Travel: No Contact w/Someone Who Travel: No Recent Infectious Disease Expo: No Recent Hopitalizations: No Immunizations Up To Date Tetanus Booster (TDap): Unknown Date of Pneumonia Vaccine: Feb 01, 2018 Date of Influenza Vaccine: Feb 16, 2017 Seasonal Allergies Seasonal Allergies: No Past Medical History Surgeries: Yes (CYST REMOVED FROM KNEE, CATARACTS) Gallbladder, Hysterectomy Respiratory: Yes Pneumonia Currently Using CPAP: No Currently Using BIPAP: No Cardiac: Yes Hypertension Neurological: No 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, 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 Sexually Transmitted Disease: No HIV/AIDS: No Genitourinary: Yes UTI-Chronic Gastrointestinal: No (RECTAL BLEEDING) Gastroesophageal Reflux, Diverticulosis, Polyps Musculoskeletal: No Endocrine: No HEENT: No Loss of Vision: Bilateral Hearing Impairment: Hard of Hearing Cancer: No Did You Recieve Any Treatments: No Psychosocial: No Integumentary: No Blood Disorders: No Adverse Reaction/Blood Tranf: No (N/A) Family Medical History Cancer of vagina G8 SISTER Diabetes mellitus 19 MOTHER G8 SISTER FH: breast cancer 19 MOTHER FH: cancer G8 SISTER FH: liver cancer 19 FATHER FH: lung cancer G8 BROTHER G8 BROTHER G8 BROTHER G8 BROTHER G8 BROTHER G8 BROTHER G8 BROTHER FH: pancreatic cancer G8 SISTER Hypertension Physical Exam Vital Signs Vital Signs - First Documented 03/07/19 19:05 Temp 36.6 Pulse 73 Resp 17 B/P (MAP) 171/80 (110) Pulse Ox 96 O2 Delivery Room Air Capillary Refill : Less Than 3 Seconds Height, Weight, BMI Height: 5'5.00" Weight: 146lbs. 3.0oz. 66.045533dc; 25.00 BMI Method:Stated General Appearance: WD/WN, mild distress HEENT: PERRL/EOMI, normal ENT inspection, TMs normal, pharynx normal, other (4 cm hematoma over the occiput midline with a 4 cm superficial laceration that is hemostatic.) Neck: non-tender, full range of motion, supple, normal inspection Cardiovascular: normal peripheral pulses, regular rate, rhythm Respiratory: lungs clear, normal breath sounds, no respiratory distress, no accessory muscle use Gastrointestinal: normal bowel sounds, non tender, soft Procedures/Interventions Wound Location: Scalp Other Wound Location Midline occiput Wound Length (cm): 4.5 Wound's Depth, Shape: linear, sub Q Wound Explored: no foreign body removed Irrigated w/ Saline (ccs): 200 Betadine Prep?: Yes (chlorhexidine) Anesthesia: 1% Lidocaine Volume Anesthetic (ccs): 3 Wound Debrided: minimal Staple Repair: Stapler 35W Number of Sutures: 7 Layer Closure?: 1 Progress/Results/Core Measures Results/Orders My Orders Orders - NYDIA BERMEO Ct Head/Cervical Spine Wo (03/07/19 19:28) Lidocaine 1% Inj 20 Ml (Xylocaine 1% Inj (03/07/19 19:45) Dipht,Pertuss(Acell),Tet Adult (Boostrix (03/07/19 19:45) Medications Given in ED Current Medications Medications Dose Ordered Sig/Ronnie Route Start Time Stop Time Status Last Admin Dose Admin Diphtheria/ Tetanus/Acell Pertussis 0.5 ml ONCE ONCE IM 03/07/19 19:45 03/07/19 19:46 DC 03/07/19 19:52 0.5 ML Lidocaine HCl 20 ml ONCE ONCE INJ 03/07/19 19:45 03/07/19 19:46 DC 03/07/19 19:53 20 ML Vital Signs/I&O 03/07/19 19:05 Temp 36.6 Pulse 73 Resp 17 B/P (MAP) 171/80 (110) Pulse Ox 96 O2 Delivery Room Air Blood Pressure Mean: 110 POS Progress Progress Note : Time: 19:[address] without IV contrast of the head and C-spine. Tetanus vaccination will be brought up-to-date today. She has declined anything for pain. Plan to use lidocaine to numb the skin up and apply suze. Diagnostic Imaging Diagonstic Imaging: CT (no IV contrast) Plain Films/CT/US/NM/MRI: c-spine, head Comments NAME: SHAILA HUYNH MED REC#: [id number] PT STATUS: REG ER : 1930 PHYSICIAN: NYDIA BERMEO MD ADMIT DATE: 03/07/19/ER Draft POSDate of Exam:03/07/19 CT HEAD/CERVICAL SPINE WO INDICATION: Fall with head and neck pain. TECHNIQUE: Multiple contiguous axial images were obtained through the brain and cervical spine without the use of intravenous contrast. Sagittal and coronal reformations through the cervical spine were then performed. Auto Exposure Controls were utilized during the CT exam to meet ALARA standards for radiation dose reduction. CT brain findings: There are mild diffuse atrophic changes. There are patchy low-density changes in the deep white matter compatible with chronic ischemic change. There is no subdural or epidural collection. Ventricles are normal in size. Calvarial windows show no fracture. There is a chronic dural calcification in the right frontal region. CT cervical spine findings: There is no evidence of cervical spine fracture. There is extensive degenerative change throughout the facets on both sides. There is disc space narrowing most prominent at C6-C7. IMPRESSION: CT brain shows chronic changes with no acute intracranial abnormality. CT cervical spine shows degenerative findings with no acute fracture or acute bony abnormality. Dictated on workstation # [id number] Dict: 03/07/191954 Trans: 03/07/192004 [facility] [id number] Interpreted by: JORDAN VITAL MD Electronically signed by: Reviewed: Reviewed by Me Departure Impression Primary Impression: Fall Qualified Codes: W19.XXXA - Unspecified fall, initial encounter Additional Impressions: Hematoma of occipital surface of head Qualified Codes: S00.83XA - Contusion of other part of head, initial e ncounter Laceration Disposition: 01 HOME, SELF-CARE Condition: Improved Departure-Patient Inst. Decision time for Depature: 20:19 Referrals: ALISON FERRELL MD (PCP/Family) Primary Care Physician Patient Instructions: Laceration Repair With [place] (DC), Concussion, Adult (DC) Add. Discharge Instructions: If you have any concussion symptoms such as a headache, nausea or dizziness then you should take ibuprofen or Tylenol and get some sleep. Follow-up with the ER or your primary doctor in about 10 days to have the suze removed. If you have any bleeding apply direct pressure over the site and set up for 20 minutes. If he cannot get it stopped then please return to the doctor to have it addressed. Ice packs 20 minutes on every 4 hours for the first 2-3 days. All discharge instructions reviewed with patient and/or family. Voiced understanding. NYDIA BERMEO Mar 07, 2019 19:34 POS
[2019-03-07] MEDS ORDERED: LIDOCAINE 1% INJ 20 ML 20 ML VIAL INJ ONE (19:45)
[2019-03-07] MEDS ORDERED: TETANUS,DIPTH,PERTUSS P/F (BOOSTRIX) 0.5 ML VIAL IM ONE (19:45)
--- NOTE | 2019-03-07 20:06 | Diagnostic Imaging Report ---
INDICATION: Fall with head and neck pain. TECHNIQUE: Multiple contiguous axial images were obtained through the brain and cervical spine without the use of intravenous contrast. Sagittal and coronal reformations through the cervical spine were then performed. Auto Exposure Controls were utilized during the CT exam to meet ALARA standards for radiation dose reduction. CT brain findings: There are mild diffuse atrophic changes. There are patchy low-density changes in the deep white matter compatible with chronic ischemic change. There is no subdural or epidural collection. Ventricles are normal in size. Calvarial windows show no fracture. There is a chronic dural calcification in the right frontal region. CT cervical spine findings: There is no evidence of cervical spine fracture. There is extensive degenerative change throughout the facets on both sides. There is disc space narrowing most prominent at C6-C7. IMPRESSION: CT brain shows chronic changes with no acute intracranial abnormality. CT cervical spine shows degenerative findings with no acute fracture or acute bony abnormality. Dictated by: Dictated on workstation # [id number]
[2019-03-07 20:25] VITALS: BP 148/73
== END 2019-03-07 20:29 | disposition home or self-care (01) ==
LOC: EDUNIT# 18:57 → ER 18:58
DX: S01.01XA Laceration without foreign body of scalp, initial encounter (principal); I10 Essential (primary) hypertension; K21.9 Gastro-esophageal reflux disease without esophagitis; Z23 Encounter for immunization; Z87.440 Personal history of urinary (tract) infections; Z79.82 Long term (current) use of aspirin; Z90.710 Acquired absence of both cervix and uterus; Z80.3 Family history of malignant neoplasm of breast; Z80.0 Family history of malignant neoplasm of digestive organs; Z80.1 Family history of malignant neoplasm of trachea, bronchus and lung; Z80.49 Family history of malignant neoplasm of other genital organs; Z82.49 Family history of ischemic heart disease and other diseases of the circulatory system; W11.XXXA Fall on and from ladder, initial encounter
CPT/HCPCS: 12002; 70450; 72125; 90471; 90715

== ENCOUNTER 2019-03-17 17:20 | Emergency (ER) | payer MEDICARE ==
[~2019-03-17] VITALS: Ht 165.1 cm; Wt 98.0 kg
[2019-03-17 17:41] VITALS: BP 147/73
--- NOTE | 2019-03-17 17:45 | NUR ---
G RADHA PAUL USED SKIN EFFECT TO CLOSE END OF LACERATION
--- NOTE | 2019-03-17 18:08 | ED Suture Removal/Wound Check ---
Suture/Wound Re-check Suture Removal/Wound Recheck : Progress patient presents for staple removal. Reports mild pain and continued swelling at the site of the laceration. Denies drainage. Physical Exam Vital Signs Vital Signs - First Documented Capillary Refill : General Appearance: WD/WN, no apparent distress HEENT: other (posterior scalp laceration intact. Jarreau removed by nursing staff. Very mild wound dehiscence noted. No drainage or cellulitis noted. Positive posterior scalp hematoma with soft tissue tenderness noted.) Skin: normal color, warm/dry, other (posterior scalp laceration intact. Fauzia removed by nursing staff. Very mild wound dehiscence noted. No drainage or cellulitis noted. Positive posterior scalp hematoma with soft tissue tenderness noted.) Departure Communication (Admissions) Patient seen and evaluated. Wound cleansed with chlorhexidine and sterile saline. Dermabond applied to help support the skin edges. Proceed with discharge. Impression Primary Impression: Encounter for removal of sutures Disposition: 01 HOME, SELF-CARE Condition: Improved Departure-Patient Inst. Decision time for Depature: 17:41 Referrals: ALISON FERRELL MD (PCP) Primary Care Physician Patient Instructions: SUTURE REMOVAL-UNCOMPLICATED Add. Discharge Instructions: All discharge instructions reviewed with patient and/or family. Voiced understanding. Begin showering tomorrow morning. Avoid scrubbing the laceration site. Follow-up with your primary care provider for recheck. Return to the emergency department for worsened symptoms or any other concerns. DAMON HANSEN Mar 17, 2019 18:08 POS
== END 2019-03-17 17:41 | disposition home or self-care (01) ==
LOC: EDUNIT# 17:20 → ER 17:22
DX: T81.31XA Disruption of external operation (surgical) wound, not elsewhere classified, initial encounter (principal); S01.01XD Laceration without foreign body of scalp, subsequent encounter; X58.XXXD Exposure to other specified factors, subsequent encounter

== ENCOUNTER → 2020-01-19 | Outpatient (CLI) | payer MEDICARE ==
[~2020-01-19] MED LIST changes: +ASPI-1238 PO; -ASPI-983 PO; +OXYB5TAB13 PO
== END ==
LOC: CARD 13:55
PROVIDERS: ATTEND Physician Assistant
DX: I65.23 Occlusion and stenosis of bilateral carotid arteries (principal); I10 Essential (primary) hypertension; E78.5 Hyperlipidemia, unspecified; R00.1 Bradycardia, unspecified
CPT/HCPCS: 93306